=== PATIENT | male | born 1955 | race Caucasian/White ===

== ENCOUNTER 2020-12-04 00:21 | Inpatient (IN) | payer MEDICARE, OTHER, SELFPAY ==
[2020-12-04] VITALS (25 sets, daily range): BP systolic 117–156; BP diastolic 67–87; PULSE 78–124; RESP 18–24; TEMP 36.7–39.4; O2SAT 96–100; BMI 30.6
--- NOTE | ~2020-12-04 | XR_ITS ---
EXAMINATION: XR chest 1V portable EXAM DATE: 12/07/2020 09:23 INDICATION: Pneumonia. TECHNIQUE: Portable AP frontal chest x-ray was obtained. Comparison is made to prior examination from 12/04/2020. FINDINGS: Multifocal right upper lobe opacity appearance most consistent with bacterial pneumonia. Ot her infectious etiology or underlying cancer not excludable, and follow-up to resolution is indicated . Cardiomediastinal silhouette is normal. There is no pneumothorax suspected. There are no pleural effu sions. There are no osseous abnormalities identified. IMPRESSION: Multifocal right upper lobe pneumonia. Follow-up to resolution is indicated to exclude un derlying cancer. Reviewed, dictated and finalized at location B. IMPRESSION: Multifocal right upper lobe pneumonia. Follow-up to resolution is i ndicated to exclude underlying cancer.
--- NOTE | ~2020-12-04 | XR_ITS ---
EXAMINATION: XR chest PICC line DATE: 12/09/2020 09:21 INDICATION: PICC line placement TECHNIQUE: frontal view of the chest was obtained. COMPARISON: Chest radiograph dated 12/07/2020 FINDINGS: Right upper extremity peripherally inserted central venous catheter (PICC) tip at the mid superior v jaelyn cava. No significant interval change in consolidation in the right upper lobe concerning for pneu monia. Mild streaky opacities at the bilateral lung bases more likely related to atelectasis. Calcifi ed nodule left upper lung zone and calcified left hilar lymph nodes consistent with old granulomatous disease. The cardiomediastinal silhouette is normal. IMPRESSION: 1. Right PICC line tip in the midsuperior vena cava. 2. Right upper lobe pneumonia. Reviewed, dictated and finalized at location A.
--- NOTE | ~2020-12-04 | US_ITS ---
EXAMINATION: US abdomen limited DATE: 12/07/2020 14:52 INDICATION: Abnormal liver function tests. TECHNIQUE: Multiple grayscale and Doppler ultrasound images of the abdomen were obtained. COMPARISON: Chest CT 12/04/2020, CT abdomen and pelvis 05/06/2018 FINDINGS: The pancreas is obscured by bowel gas. The liver is normal without focal lesion. No liver s urface nodularity. There is normal flow in main portal vein. The gallbladder is contracted. There are comet tail artifacts at the gallbladder fundus, consistent with adenomyomatosis. No gallstones or so nographic Cano sign. The common duct is normal and measures 2 mm. IMPRESSION: 1. No etiology for abnormal liver function tests. Reviewed, dictated and finalized at location A.
--- NOTE | ~2020-12-04 | CT_ITS ---
EXAMINATION: CTA chest PE protocol DATE: 12/04/2020 02:08 INDICATION: Dyspnea TECHNIQUE: Computed tomography angiography (CTA) of the chest was performed with 100 mL Omnipaque-350 intravenous contrast timed to evaluate the pulmonary arteries. Coronal maximum intensity projection 3D-reconstructions were created by the technologist. Automated exposure control and iterative reconst ruction technique were employed. Exam dose: 939.17 mGy-cm total exam DLP. COMPARISON: 12/04/2020 portable AP chest FINDINGS: There is suboptimal contrast enhancement of the pulmonary arteries. No central pulmonary em bolus is identified; the segmental and subsegmental pulmonary artery cannot sufficiently opacified fo r diagnostic purposes. No thoracic aortic aneurysm or dissection. Normal heart size. Mild pericardial effusion. There is cor onary artery calcification. There is mild hilar and mediastinal lymph node prominence, likely reactive. There is very prominent consolidation in the right upper lobe, particularly in the apical and posteri or medial right upper lobe, with air bronchograms. There are scattered patchy groundglass infiltrates in the left upper lobe including lingula, middle lobe Included skeletal structures are unremarkable other than prominent degenerative disc disease in lower cervical spine and mild degenerative spurring of the thoracic spine.. IMPRESSION: Limited examination for evaluation of pulmonary emboli due to suboptimal contrast opacif ication. No central pulmonary embolus is noted. Multifocal bilateral pulmonary infiltrates, with particularly prominent consolidation in the right up per lobe Mild pericardial effusion Reviewed, dictated and finalized at Location A. Reviewed, dictated and finalized at location A. IMPRESSION: Limited examination for evaluation of pulmonary emboli due to subo ptimal contrast opacification. No central pulmonary embolus is noted. Multifocal bilateral pulmonary infiltrates, with particularly prominent consoli dation in the right upper lobe Mild pericardial effusion
--- NOTE | ~2020-12-04 | XR_ITS ---
EXAMINATION: XR chest 1V portable DATE: 12/04/2020 01:01 INDICATION: Shortness of breath TECHNIQUE: frontal view of the chest was obtained. COMPARISON: Chest CT dated 12/04/2020 FINDINGS: Dense consolidation in the right upper lobe consistent with pneumonia. Calcified nodule in the left u pper lung zone consistent with old granulomatous disease. No pleural effusion or pneumothorax. The ca rdiomediastinal silhouette is normal. IMPRESSION: 1. Right upper lobe consolidation consistent with pneumonia. Reviewed, dictated and finalized at location A.
--- NOTE | ~2020-12-04 | CT_ITS ---
EXAMINATION: CT brain wo con INDICATION: Confusion COMPARISON: None TECHNIQUE: Standard unenhanced head CT. The dose-length product (DLP) was 908.00 mGy-cm. The mA was a djusted according to patient size. Iterative reconstruction technique was employed. FINDINGS: There is no acute intraparenchymal hemorrhage. No evidence of mass lesion. No evidence of a cute infarction. There is mild periventricular and subcortical hypodensity probably related to small vessel ischemic disease. There is mild prominence of the sulci and ventricles related to cerebral atr ophy. Intracranial calcified cerebral atherosclerosis is noted. There are no extra-axial collections. There is no mass effect or midline shift. The orbits and soft tissues are unremarkable. There is mil d mucosal thickening of the paranasal sinuses. IMPRESSION: 1. No acute intracranial abnormality. 2. Age related findings. Reviewed, dictated and finalized at location A.
--- NOTE | 2020-12-04 00:33 | ECG_ITS ---
Measurements Intervals [place] Rate: 131 P: 109 AL: 164 QRS: 104 QRSD: 117 T: 139 QT: 288 QTc: 426 Interpretive Statements SINUS TACHYCARDIA FREQUENT ATRIAL PREMATURE COMPLEXES ARM LEADS REVERSED INCOMPLETE RIGHT BUNDLE BRANCH BLOCK BORDERLINE ST-T WAVE ABNORMALITY- ANTERIOR LEADS BASELINE ARTIFACT- II, V1-V2 ABNORMAL ECG Electronically Signed On 12-04-2020 8:27:39 CDT by Geraldo Brock D.O.
[2020-12-04 01:10] LABS: Alveolar/Arterial O2 Gradient 136.7 mmHg; Base Excess ABG -1.5 mEq/l (+/-2.0); Fractional Inspired Oxygen 36 %; HCO3 ABG 19.4 mEq/l (22.0-26.0); Oxygen Content ABG 20.4 %vol (16.0-22.0); Oxygen Saturation ABG 97.8 % (95.0-100.0); Oxyhemoglobin 96.3 % THb (90.0-100.0); PCO2 ABG 24.2 mmHg (35.0-45.0); PO2 ABG 91.9 mmHg (80.0-100.0); PO2 FiO2 Ratio Arterial Blood 2.55 %
[2020-12-04 01:13] LABS: Modified Allen's Test Pass; Site Drawn RIGHT RADIAL; pH ABG 7.522 (7.350-7.450)
[2020-12-04 01:14] LABS: Device NASAL CANNULA
[2020-12-04 01:17] LABS: Basophils Percent Auto 0.3 % (0.2-1.2); Hematocrit 39.4 % (42.0-52.0); Hemoglobin 14.4 g/dL (14.0-18.0); Immature Granulocyte Absolute 0.11 K/mm3 (0.00-0.031); Lymphocytes Absolute Auto 0.75 K/mm3 (0.9-3.2); Lymphocytes Percent Auto 7.1 % (18.3-44.2); Mean Corpuscular HGB Conc 36.5 g/dl (32-36); Mean Corpuscular Hemoglobin 31.9 pg (26-34); Mean Corpuscular Volume 87.4 fl (80-100); Mean Platelet Volume 10.5 fl (7.4-10.4); Monocytes Absolute Auto 0.5 K/mm3 (0.1-0.6); Monocytes Percent Auto 4.7 % (2.6-8.5); Neutrophils Absolute Auto 9.1 K/mm3 (1.3-6.7); Neutrophils Percent Auto 86.9 % (45.5-73.1); Platelet Count Result 249 k/mm3 (150-375); Red Blood Count 4.51 M/mm3 (4.6-6.20); Red Cell Distribution Width 13.4 % (11.5-14.5); White Blood Count 10.5 K/mm3 (4.5-10.0)
[2020-12-04 01:18] LABS: INR 1.2; Prothrombin Time 14.7 Seconds (11.1-14.7)
[2020-12-04 01:19] LABS: Lactic Acid Reflex 2.2 mmol/L (0.7-2.1)
[2020-12-04 01:20] LABS: Anion Gap 7 mmol/L (8-16); Blood Urea Nitrogen 30 mg/dL (9-20); Calcium 8.9 mg/dL (8.4-10.2); Carbon Dioxide 21 mmol/L (22-30); Chloride 90 mmol/L (98-107); Estimated CRCL calculation 70 ml/min; Estimated Glomerular Filt Rate > 60; Glucose 198 mg/dL (65-110); Potassium 4.4 mmol/L (3.4-5.0); Sodium 118 mmol/L (137-145)
[2020-12-04 01:28] LABS: EDCOVIDSCREEN Negative (Negative)
--- NOTE | 2020-12-04 01:32 | ED.SOB ---
HPI - SOB/Dyspnea General Chief Complaint: Shortness of Breath/Dyspnea Stated Complaint: cough/ fever/ sob Time Seen by Provider: 12/04/20 00:32 Source: RN notes reviewed History of Present Illness HPI Narrative: Patient presents to emergency department from home for shortness of breath. Patient states he began to feel bad approximately 4 days ago states that he has had progressive shortness of breath to he also states a fever at home states he has a cough this been nonproductive he states he had the [employer] vaccine on November [id number] patient denies any chest pain abdominal pain nausea vomiting or any other symptoms states he is on as needed oxygen at home but does not regularly wear oxygen Related Data Allergies Allergy/AdvReac Type Severity Reaction Status Date / Time No Known Allergies Allergy Unverified 05/06/18 07:09 Review of Systems Review of Systems: Gen.: Reports fever Eyes: Denies eye pain or visual change ENT: Denies congestion Respiratory: reports shortness of breath and CV: Denies chest pain or palpitations GI: Denies abdominal pain nausea, emesis or diarrhea Musculoskeletal: Denies back pain or muscle pain Neuro: Denies numbness, tingling, weakness or focal weakness Skin: Denies rash Except as documented, all other systems reviewed and negative [facility] Past Medical History Medical History (Updated 12/04/20 @ 03:54 by Eduardo Asher DO) COPD (chronic obstructive pulmonary disease) Family History Family History (Updated 05/30/12 @ 15:56 by DOCTOR UNKNOWN) Other Asthma Carcinoma of colon Diabetes mellitus Family history of coronary artery disease Family history of malignant neoplasm of stomach Family history of seizure disorder Hypertension Social History Social History Smoking status: Light tobacco smoker Alcohol intake: never Exam Narrative: APPEARANCE: No acute distress, nontoxic, resting in bed EYES: EOMI HEENT: Normocephalic, atraumatic, OMM RESPIRATORY: No respiratory distress Clear to auscultation bilaterally with no rhonchi wheezing or rales. CARDIOVASCULAR: Tachycardic and regular without murmurs rubs or gallops. ABDOMINAL: Soft, nontender, nondistended, no rebound or guarding MUSCULOSKELETAl: Moves all extremities. No clubbing, cyanosis or edema. NEURO: Awake and alert. Following commands, speech normal, no focal deficits SKIN:: Warm, dry. No rashes lesions or abrasions PSYCHIATRIC: Normal affect/mood, Course Course Emergency Course: Called and discussed with Dr. Nance presentation work-up agrees with admission at this time request a repeat BMP ordered for any further fluids be given Discussed with patient and family results of workup and diagnosis. Discussed need for admission. Patient and family understand and agree to current treatment plan Vital Signs Vital signs: Vital Signs Temperature 101 F H 12/04/20 00:21 Pulse Rate 120 H 12/04/20 00:21 Respiratory Rate 22 H 12/04/20 00:21 Blood Pressure 141/75 H 12/04/20 00:21 Pulse Oximetry 96 12/04/20 00:21 Temperature 101 F H 12/04/20 00:21 Pulse Rate 97 12/04/20 03:28 Respiratory Rate 24 H 12/04/20 03:28 Blood Pressure 130/68 12/04/20 03:28 Pulse Oximetry 97 12/04/20 03:28 MDM - SOB/Dyspnea Lab Data Result diagrams: 12/04/20 00:44 12/04/20 03:05 Labs: Lab Results 12/04/20 12/04/20 12/04/20 Range/Units 00:44 00:44 00:49 WBC 10.5 H (4.5-10.0) K/mm3 RBC 4.51 L (4.6-6.20) M/mm3 Hgb 14.4 (14.0-18.0) g/dL Hct 39.4 L (42.0-52.0) % MCV 87.4 (80-100) fl MCH 31.9 (26-34) pg MCHC 36.5 H (32-36) g/dl RDW 13.4 (11.5-14.5) % Plt Count 249 (150-375) k/mm3 MPV 10.5 H (7.4-10.4) fl Immature Gran % (Auto) 1.0 H (0-0.5) % Neut % (Auto) 86.9 H (45.5-73.1) % Lymph % (Auto) 7.1 L (18.3-44.2) % [place] % (Auto) 4.7 (2.6-8.5)
[2020-12-04 01:51] LABS: Alanine Aminotransferase 52 U/L (4-50); Albumin Level 3.2 g/dL (3.5-5.1); Alkaline Phosphatase 144 U/L (38-126); Aspartate Amino Transferase 103 U/L (17-59); Bilirubin,Total 0.6 mg/dL (0.2-1.3)
[2020-12-04 02:11] LABS: CRP 39.2 mg/dL (<1.0); Lactate Dehydrogenase 1924 U/L (313-618)
[2020-12-04] MEDS: SODIUM CHLORIDE 0.9% IV 1,000 ML 999 ML IV CONT (02:20)
[2020-12-04 03:22] LABS: Anion Gap 6 mmol/L (8-16); Blood Urea Nitrogen 29 mg/dL (9-20); Calcium 8.5 mg/dL (8.4-10.2); Carbon Dioxide 22 mmol/L (22-30); Chloride 92 mmol/L (98-107); Estimated CRCL calculation 65 ml/min; Estimated Glomerular Filt Rate > 60; Glucose 159 mg/dL (65-110); Potassium 3.8 mmol/L (3.4-5.0); Sodium 120 mmol/L (137-145)
[2020-12-04 04:07] LABS: Reflex Lactic Acid Yes or No Add Lactic
[2020-12-04 04:45] LABS: Lactic Acid 1.8 mmol/L (0.7-2.1)
--- NOTE | 2020-12-04 06:14 | PM.IMHP ---
H&P: HPI History of Present Illness Date/Time: 12/04/20 06:14 Chief Complaint: Shortness of breath Narrative: Patient presents to emergency department from home with complaints of feeling sick since a week now. He states he has been progressively getting short of breath since about a week along with fever. He also reports abdominal pain some loose stools decreased appetite and tiredness. He also reports having some cough which is dry. Reports fever at home. He also reports pain behind her eyes and headache since the same duration. He was noted to be tachycardic and febrile in the ER along with severely hyponatremic at 118 on admission. He was rapid swab for COVID which came back negative significantly elevated CRP at 39 with an LDH at 1924. A chest x-ray showed right upper lobe infiltrate CTA was done to rule out PE and was negative for PE but conforms the finding of multifocal pneumonia mostly located in right upper lobe however does have interstitial infiltrate in the left upper lobe and right lower lobe. He is admitted for further evaluation and management Review of Systems Review of Systems: - CONSTITUTIONAL: Reports weight loss, fever and chills. - HEENT: Denies changes in vision and hearing - RESPIRATORY: Reports SOB and cough. - CV: Denies palpitations and CP. - GI: Reports abdominal pain, nausea, and diarrhea. Denies vomiting - : Denies dysuria and urinary frequency. - MSK: Denies myalgia and joint pain. - SKIN: Denies rash and pruritus. - NEUROLOGICAL: Reports headache and denies syncope. - PSYCHIATRIC: Denies recent changes in mood. Denies anxiety and depression. All systems reviewed & are unremarkable except as noted in HPI and below Constitutional: Constitutional: Reports fatigue and Reports weakness Neurologic: Reports weakness Endocrine: Endocrine: Reports fatigue [facility] Past Medical History Medical History (Updated 12/04/20 @ 03:54 by Eduardo Asher DO) COPD (chronic obstructive pulmonary disease) Family History Family History (Updated 05/30/12 @ 15:56 by DOCTOR UNKNOWN) Other Asthma Carcinoma of colon Diabetes mellitus Family history of coronary artery disease Family history of malignant neoplasm of stomach Family history of seizure disorder Hypertension Social History Social History Smoking status: Light tobacco smoker Alcohol intake: never Meds Home Medications and Allergies Allergies Allergy/AdvReac Type Severity Reaction Status Date / Time No Known Allergies Allergy Unverified 05/06/18 07:09 Vital Signs Vital Signs - 24 hr 12/04/20 00:21 12/04/20 00:26 12/04/20 03:28 Temperature 101 F H Pulse Rate 120 H 97 Respiratory Rate 22 H 24 H Blood Pressure 141/75 H 130/68 Pulse Oximetry 96 96 97 12/04/20 05:32 Temperature Pulse Rate 78 Respiratory Rate 18 Blood Pressure 122/78 Pulse Oximetry 100 Exam Narrative: APPEARANCE: No acute distress, morbid obese EYES: EOMI HEENT: Normocephalic, atraumatic RESPIRATORY: Bilateral wheezes noted occasional no respiratory distress CARDIOVASCULAR: Regular rate and rhythm without murmurs rubs or gallops. ABDOMINAL: Soft, mildly tender epigastric area, distended, no rebound or guarding MUSCULOSKELETAl: Moves all extremities. No clubbing, cyanosis or edema. NEURO: Awake and alert oriented x3, speech normal, no focal deficits SKIN:: Warm, dry. No rashes lesions or abrasions PSYCHIATRIC: Normal affect/mood, H&P: Results Labs Labs: Short CBC 12/04/20 12/04/20 12/04/20 Range/Units 00:44 00:44 00:49 WBC 10.5 H (4.5-10.0) K/mm3 Hgb 14.4 (14.0-18.0) g/dL Hct 39.4 L (42.0-52.0) % Plt Count 249 (150-375) k/mm3 Sodium 118 L* (137-145) mmol/L Lactic Acid 2.2 H (0.7-2.1) mmol/L 12/04/20 Range/Units 03:05 WBC (4.5-10.0) K/mm3 Hgb (14.0-18.0) g/dL Hct (42.0-52.0) % Plt Count (
--- NOTE | 2020-12-04 08:17 | PC.NURSE ---
bed alarm remains in place. pt reminded about calling for assist. family updated via phone
[2020-12-04 08:22] LABS: Anion Gap 7 mmol/L (8-16); Blood Urea Nitrogen 26 mg/dL (9-20); Calcium 8.4 mg/dL (8.4-10.2); Carbon Dioxide 24 mmol/L (22-30); Chloride 88 mmol/L (98-107); Estimated CRCL calculation 70 ml/min; Estimated Glomerular Filt Rate > 60; Glucose 144 mg/dL (65-110); Potassium 3.8 mmol/L (3.4-5.0); Sodium 119 mmol/L (137-145)
[2020-12-04 09:02] LABS: Creatinine Urine 116.5 mg/dL; Urea Random Urine 1109 MG/DL
[2020-12-04] MEDS: methylPREDNISolone SOD SUCC 40 MG VIAL IV PUSH ×2 (09:17→16:49)
--- NOTE | 2020-12-04 09:32 | PC.NURSE ---
iv site infiltrated at this time. new site lt ac. previous site lt forearm d/c intact with drsg applied
--- NOTE | 2020-12-04 09:42 | ADMGEN ---
This patient, Quintin Thacker, was admitted to IMU Room 207-01. Patient/family oriented to hospital policies and general routines including ID bracelet, bed and alarms, visiting hours, pain management, procedures, bathroom and other care routines, personal items, smoking policy, room service/diet, and visiting hours. Information on how to activate the Rapid Response Team has been discussed. Patient/Family are encouraged to report perceived risks to care and to ask questions if they do not understand what they are told or what they should do.
[2020-12-04 09:47] LABS: Sodium Urine Random < 5 meq/L
[2020-12-04] MEDS: SODIUM CHLORIDE 0.9% IV 1,000 ML 80 ML IV CONT (11:13)
[2020-12-04] MEDS: ENOXAPARIN 40 MG/0.4 ML SYRINGE SUB-Q (11:14)
--- NOTE | 2020-12-04 13:12 | PM.IMPN ---
Progress Note: A&P Assessment and Plan (1) Severe sepsis: Code(s): A41.9 - Sepsis, unspecified organism; R65.20 - Severe sepsis without septic shock Status: Acute Assessment and Plan: Fevers, tachycardia, hypoxia, elevated lactic acid Lactic acidosis resolved with IV fluid resuscitation Elevated liver enzymes likely due to pneumonia and/or dehydration continue to monitor See plan below for acute respiratory failure with hypoxia Placed patient on IV azithromycin, IV Rocephin, IV Flagyl Patient continues to have fevers, last 1 103 this morning, given IV Tylenol. Added p.r.n. Motrin for breakthrough fevers urinalysis and urine cultures, blood cultures are pending. Other atypical cultures are already pending. no one at home has any pneumonia or illness or fevers or COVID.no known ill or sick contacts that he knew of. (2) Community acquired pneumonia: Code(s): J18.9 - Pneumonia, unspecified organism Status: Acute Assessment and Plan: See plan below for acute respiratory failure with hypoxia Placed patient on IV azithromycin, IV Rocephin, IV Flagyl Multifocal pneumonia predominantly right upper lobe community-acquired pneumonia. Rapid COVID is negative will send for COVID PCR. With hyponatremia and diarrhea suspect atypical pneumonia likely Legionnaire's disease. Will send urine screen along with pneumococcal antigen will also check for mycoplasma. Ceftriaxone and azithromycin and Flagyl ordered (3) Acute respiratory failure with hypoxia: Code(s): J96.01 - Acute respiratory failure with hypoxia Status: Acute Assessment and Plan: Community-acquired pneumonia verses Aspiration pneumonia versus COVID or viral pneumonia versus Atypical pneumonia such as legionnaires Quintin is having a very difficult time with his breathing, he is diaphoretic and in tripod position at this moment. stat albuterol and ipratropium nebulizer treatment. Added scheduled DuoNeb treatments. Ordered a urinalysis and urine cultures, blood cultures are pending. Other atypical cultures are already pending. consulted pulmonology. sees Sharlene Azar at [facility]. in [place], [place]. His home medications are not entered into his medical record at this time, I have instructed nursing to do so on contact me right away for reconciliation no one at home ill and no known ill or sick contacts that he knew of. CT angio scan was completed, but the report is not available his chest x-ray showed right upper lobe pneumonia. D-dimer is elevated at 14.5. Checking serial troponins x3, ordered an EKG for the morning, and ordered an echo to be done. 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 Severe hyponatremia sodium level of 118 on admission. Received normal saline bolus repeat was 120. Will continue normal saline at 80 cc an hour BMP every 4 hours n urine lytes osmolality still pending sodium of 119 he has been getting 80 mils an hour of sodium chloride since admission. has been on a heart healthy fluid restriction diet. I will change his heart healthy to regular diet, to make sure it is not low sodium. Repeating a stat CMP and CBC now, since his last labs were a midnight. Checking magnesium and phosphorus and TSH levels Appreciate inside solar sales consultant consultation and treatment (5) COPD (chronic obstructive pulmonary disease): Code(s): J44.9 - Chronic obstructive pulmonary disease, unspecified Status: Acute Assessment and Plan: Quintin is having a very difficult time with his breathing - COPD/Shilpa ACUTE on Chronic Exacerbation he is diaphoretic and in tripod position Ordered stat albuterol and ipratropium neb
[2020-12-04] MEDS: ALBUTEROL SULFATE NEB 2.5 MG/0.5 ML INH INHALATION ×3 (13:53→23:29)
[2020-12-04] MEDS: IPRATROPIUM BR 0.02% INH SOLN 0.5 MG/2.5 ML VIAL INHALATION ×3 (13:53→23:29)
[2020-12-04 14:03] LABS: Alveolar/Arterial O2 Gradient 164.5 mmHg; Base Excess ABG -1.1 mEq/l (+/-2.0); Fractional Inspired Oxygen 40 %; Oxygen Content ABG 21.1 %vol (16.0-22.0); Oxygen Saturation ABG 96.7 % (95.0-100.0); Oxyhemoglobin 95.4 % THb (90.0-100.0); PCO2 ABG 32.6 mmHg (35.0-45.0); PO2 ABG 83.2 mmHg (80.0-100.0); PO2 FiO2 Ratio Arterial Blood 2.08 %; Total Hemoglobin 15.7 g/dL (12.0-18.0); pH ABG 7.447 (7.350-7.450)
[2020-12-04 14:04] LABS: Device NASAL CANNULA; Modified Allen's Test Pass; Site Drawn RIGHT BRACHIAL
--- NOTE | 2020-12-04 14:05 | PM.CNNEP ---
Assessment and Plan Assessment and plan (1) Hyponatremia: Code(s): E87.1 - Hypo-osmolality and hyponatremia Status: Acute Assessment and Plan: acute versus chronic versus acute on chronic??? etiology/risk factors: - SSRI use (lexapro) - acute lung pathology (pneumonia) - chronic lung issues (COPD + asthma) - pre-renal factors (low urine sodium) - narcotics (percocet use) no real improvement with IV normal saline start fluid restriction trial of 3% saline given dropping sodium level goal of therapy is a rate of change of 4 - 6mmol/L (but not exceed 8mmol/L) in a 24 hours check TSH, cortisol, SPEP, UPEP, and urine/serum osmolality (2) Community acquired pneumonia: Code(s): J18.9 - Pneumonia, unspecified organism Status: Acute Assessment and Plan: as noted by imaging on admission follow up on cultures on antibiotics supplemental oxygen (3) Acute respiratory failure with hypoxia: Code(s): J96.01 - Acute respiratory failure with hypoxia Status: Acute Assessment and Plan: complicated by #2 and #4 continue current interventions follow respiratory status (4) COPD (chronic obstructive pulmonary disease): Code(s): J44.9 - Chronic obstructive pulmonary disease, unspecified Status: Acute Assessment and Plan: known diagnosis continue nebulizer treatments and steroids continus supportive therapy Will continue to follow. History of Present Illness Reason for Consult Consult date: 12/04/20 Reason for consult: hyponatremia Chief Complaint Chief complaint: Acute Resp Fail c hypoxia, community-aq pneumonia History of Present Illness Narrative: The patient is a 65 y/ male with a past medical history as outlined below who presented to [facility] ER with complaints of feeling sick. He states his symptoms began about a week ago which included shortness of breath that has progressively gotten worse in association with a fever, abdominal pain, loose stools, poor appetite, and profound fatigue. He also reports a dry cough and pain that seems to be localized behind his eyes in association with the headache. As the symptoms continued to progress without any improvement despite conservative therapy at home, he presented to the ER for further evaluation. Workup and evaluation emergency room demonstrated the patient to be hemodynamically stable but he was tachycardic and febrile. Routine blood test demonstrated significant hyponatremia with a sodium level 118. His rapid swab for COVID-19 was negative but his chest x-ray showed a right upper lobe infiltrate. He subsequent underwent a CT scan of the chest to rule out a pulmonary embolism which was negative but did confirm the finding of a multifocal pneumonia mostly localized to the right upper lobe with interstitial infiltrate in the left upper lobe as well as right lower lobe. Appropriate cultures were obtained and he was started on broad-spectrum IV antibiotic therapy with subsequent admission to the hospital for further evaluation and therapy. Renal consultation was requested due to his hyponatremia. I am unclear if his hyponatremia is acute, chronic, or acute on chronic but he reports that he has never had any issues or problems with hyponatremia to his knowledge. Labs done approximately 2 years ago in January 2019 show his sodium level be well within normal limits but I do not have any blood tests in the intervening couple of years to ascertain where his sodium level normally runs. He does have significant risk factors for hyponatremia including known COPD/asthma, his recent diagnosis of pneumonia, narcotic use, and SSRI use. Since admission, he has been receiving IV normal saline on the assumption that volume depletion/ prerenal factors more playing a role with his low sodium level particularly in the context of in
[2020-12-04 14:17] LABS: Basophils Percent Auto 0.3 % (0.2-1.2); Hematocrit 36.5 % (42.0-52.0); Hemoglobin 13.3 g/dL (14.0-18.0); Immature Granulocyte Absolute 0.12 K/mm3 (0.00-0.031); Immature Granulocyte Percent A 1.1 % (0-0.5); Lymphocytes Absolute Auto 0.55 K/mm3 (0.9-3.2); Mean Corpuscular HGB Conc 36.4 g/dl (32-36); Mean Corpuscular Hemoglobin 31.5 pg (26-34); Mean Corpuscular Volume 86.5 fl (80-100); Mean Platelet Volume 9.8 fl (7.4-10.4); Monocytes Absolute Auto 0.4 K/mm3 (0.1-0.6); Monocytes Percent Auto 3.7 % (2.6-8.5); Neutrophils Absolute Auto 9.8 K/mm3 (1.3-6.7); Neutrophils Percent Auto 89.9 % (45.5-73.1); Platelet Count Result 233 k/mm3 (150-375); Red Blood Count 4.22 M/mm3 (4.6-6.20); Red Cell Distribution Width 13.3 % (11.5-14.5)
--- NOTE | 2020-12-04 14:17 | ECG_ITS ---
Measurements Intervals [place] Rate: 87 P: 60 [place]: 174 QRS: 86 QRSD: 125 T: 48 QT: 349 QTc: 421 Interpretive Statements SINUS RHYTHM RIGHT BUNDLE BRANCH BLOCK BASELINE WANDER- V1-V3 ABNORMAL ECG Electronically Signed On 12-04-2020 20:01:04 CDT by Geraldo Brock D.O.
[2020-12-04 14:27] LABS: Magnesium 2.1 mg/dL (1.6-2.3); Phosphorus 2.9 mg/dL (2.5-4.5)
[2020-12-04] MEDS: guaiFENesin 12 HR 600 MG TABCR 1200 MG PO ×2 (14:31→20:54)
[2020-12-04] MEDS: LORATADINE 10 MG TABLET PO (14:31)
[2020-12-04] MEDS: FLUTICASONE PROPIONATE 0.05% NA SPR 16 GM BTL (*BKC) 1 SPRAY NASAL ×2 (14:32→20:54)
[2020-12-04] MEDS: metroNIDAZOLE 500 MG/ISO 100ML 500 MG/100 ML BAG 100 MG IVPB ×2 (14:35→21:58)
[2020-12-04 14:36] LABS: NT Pro B Type Natriuretic Pept 107 pg/mL (5-100)
[2020-12-04 14:38] LABS: Troponin I 0.022 ng/mL (0.000-0.034)
[2020-12-04 14:39] LABS: Alanine Aminotransferase 56 U/L (4-50); Albumin Level 3.2 g/dL (3.5-5.1); Alkaline Phosphatase 135 U/L (38-126); Anion Gap 6 mmol/L (8-16); Aspartate Amino Transferase 110 U/L (17-59); Bilirubin,Total 0.6 mg/dL (0.2-1.3); Blood Urea Nitrogen 23 mg/dL (9-20); Calcium 8.5 mg/dL (8.4-10.2); Carbon Dioxide 21 mmol/L (22-30); Chloride 90 mmol/L (98-107); Estimated CRCL calculation 77 ml/min; Estimated Glomerular Filt Rate > 60; Glucose 200 mg/dL (65-110); Sodium 117 mmol/L (137-145)
[2020-12-04 15:18] LABS: Thyroid Stimulating Hormone Reflex 0.251 uIU/mL (0.465-4.68)
[2020-12-04 16:02] LABS: Add Urine Microscopic? YES; Appearance Urine Clear (Clear); Bacteria Urine Trace /hpf; Bilirubin Urine Negative (Negative); Blood Urine 3+ (Negative); Color Urine Yellow (Yellow); Glucose Urine UA Negative (Negative); Ketones Urine Negative (Negative); Leukocyte Esterase Ur Negative LEU/UL (NEGATIVE); Nitrate Urine Negative (Negative); Protein Urine 2+ mg/dL (Negative); Specific Grav Ur 1.019 (1.001-1.035); Squamous Epithelial Cell Urine Rare /hpf (Few); Urobilinogen Urine Negative mg/dL (<2.0); WBC Urine 0-3 /hpf (0-3)
[2020-12-04] MEDS: SODIUM CHLORIDE 3% 240 ML 80 ML IV CONT (16:45)
[2020-12-04 17:31] LABS: Ferritin > 2000.00 ng/mL (11.1-264)
[2020-12-04 17:38] LABS: Anion Gap 7 mmol/L (8-16); Blood Urea Nitrogen 21 mg/dL (9-20); Calcium 8.4 mg/dL (8.4-10.2); Carbon Dioxide 21 mmol/L (22-30); Chloride 96 mmol/L (98-107); Estimated CRCL calculation 77 ml/min; Estimated Glomerular Filt Rate > 60; Glucose 151 mg/dL (65-110); Potassium 4.4 mmol/L (3.4-5.0); Sodium 124 mmol/L (137-145)
--- NOTE | 2020-12-04 18:01 | PCRCNOTE ---
Window of time for administration has passed. See next scheduled administration.
[2020-12-04] MEDS: FAMOTIDINE 20 MG TABLET 40 MG PO (18:15)
--- NOTE | 2020-12-04 20:32 | ECG_ITS ---
Measurements Intervals [place] Rate: 112 P: [place]: 0 QRS: 88 QRSD: 122 T: 28 QT: 323 QTc: 441 Interpretive Statements ATRIAL FIBRILLATION WITH RAPID VENTRICULAR RESPONSE RIGHT BUNDLE BRANCH BLOCK BASELINE ARTIFACT- I, II, III, AVR, AVL, AVF ABNORMAL ECG Electronically Signed On 12-05-2020 6:00:44 CDT by Geraldo Brock D.O.
[2020-12-04 21:14] LABS: Anion Gap 5 mmol/L (8-16); Blood Urea Nitrogen 21 mg/dL (9-20); Calcium 8.2 mg/dL (8.4-10.2); Carbon Dioxide 23 mmol/L (22-30); Chloride 97 mmol/L (98-107); Estimated CRCL calculation 95 ml/min; Estimated Glomerular Filt Rate > 60; Glucose 174 mg/dL (65-110); Potassium 4.3 mmol/L (3.4-5.0); Sodium 125 mmol/L (137-145)
[2020-12-04 21:40] LABS: Free T4 Free Thyroxine Reflex 0.99 ng/dL (0.78-2.19)
[2020-12-04 21:44] LABS: Anion Gap 5 mmol/L (8-16); Blood Urea Nitrogen 21 mg/dL (9-20); Carbon Dioxide 21 mmol/L (22-30); Chloride 98 mmol/L (98-107); Estimated CRCL calculation 95 ml/min; Estimated Glomerular Filt Rate > 60; Glucose 209 mg/dL (65-110); Potassium 4.4 mmol/L (3.4-5.0); Sodium 124 mmol/L (137-145)
[2020-12-04 21:56] LABS: Troponin I < 0.012 ng/mL (0.000-0.034)
[2020-12-04 22:41] LABS: Total Triiodothyronine (T3) 0.68 NG/ML (0.97-1.69)
[2020-12-05] VITALS (17 sets, daily range): BP systolic 114–138; BP diastolic 64–96; PULSE 90–147; RESP 16–24; TEMP 36.2–37.6; O2SAT 93–99
--- NOTE | 2020-12-05 | ECHO_ITS ---
Patient Info Name: Quintin Thacker Age: 65 years : 1955 Gender: Male Ht: 70 in Wt: 213 lbs BSA: 2.21 m2 HR: 110 bpm BP: 129 / 75 mmHg Heart Rhythm: Atrial Fibrillation Technical Quality: Good Exam Date: 12/05/2020 9:18 AM Exam Location: [facility] Patient Status: Inpatient Admit Date: 12/04/2020 Staff Ordering Physician: Pauline Abraham NP Vending Machine Mechanic: Shanell Hernandez RDCS Attending Provider: Johnnie Ko MD Referring Physician: Jarad HOUSE; Exam Type: CA echo doppler color flow Study Info Indications R07.89 - Other chest pain R06.02 - Shortness of breath J96.01 - Acute respiratory failure with hypoxia Complete two-dimensional, color flow and Doppler transthoracic echocardiogram is performed. Summary 1. Complete two-dimensional, color flow and Doppler transthoracic echocardiogram is performed. 2. Left ventricular chamber dimension is normal. 3. Left ventricular systolic function is hyperdynamic, estimated at >70%. 4. There is no increased left ventricular wall thickness. 5. There is no aortic valve stenosis. 6. There is trace mitral valve regurgitation. 7. There is trace tricuspid valve regurgitation. 8. No pulmonary hypertension, estimated pulmonary arterial systolic pressure is 23 mmHg. 9. There is a small to moderate sized pericardial effusion with fibrinous material within pericardial space. 10. Normal inferior vena cava with >50% collapse upon inspiration consistent with normal right atrial pressure, 5 mmHg. Left Ventricle Left ventricular chamber dimension is normal. Left ventricular systolic function is hyperdynamic, estimated at >70%. There is no increased left ventricular wall thickness. The left ventricular diastolic function is indeterminate. Right Ventricle Right ventricular chamber dimension is normal. Right ventricular systolic function is normal. Left Atria Left atrial chamber dimension is normal. Right Atria Right atrial chamber dimension is normal. Aortic Valve The aortic valve is probable trileaflet. There is mild aortic valve sclerosis. There is no aortic valve stenosis. There is trace aortic valve regurgitation. Pulmonic Valve The pulmonic valve is not well visualized. Mitral Valve The mitral valve has normal leaflets. There is trace mitral valve regurgitation. The mitral valve annulus is mildly calcified. Tricuspid Valve The tricuspid valve leaflets are normal. There is trace tricuspid valve regurgitation. No pulmonary hypertension, estimated pulmonary arterial systolic pressure is 23 mmHg. Pericardium/Pleural The pericardium appears normal. There is a small to moderate sized pericardial effusion with fibrinous material within pericardial space. Inferior Vena Cava Normal inferior vena cava with >50% collapse upon inspiration consistent with normal right atrial pressure, 5 mmHg. Aorta The aortic root size at the sinus of Valsalva is normal. Left Ventricular Outflow Tract Name Value Normal LVOT 2D LVOT Diameter 2.0 cm LVOT Doppler LVOT Peak Gradient 6 mmHg LVOT Mean Gradient
[2020-12-05 01:05] LABS: Anion Gap 6 mmol/L (8-16); Blood Urea Nitrogen 21 mg/dL (9-20); Calcium 8.5 mg/dL (8.4-10.2); Carbon Dioxide 23 mmol/L (22-30); Chloride 94 mmol/L (98-107); Estimated CRCL calculation 95 ml/min; Estimated Glomerular Filt Rate > 60; Glucose 163 mg/dL (65-110); Potassium 4.2 mmol/L (3.4-5.0); Sodium 123 mmol/L (137-145)
[2020-12-05] MEDS: ALBUTEROL SULFATE NEB 2.5 MG/0.5 ML INH INHALATION ×2 (04:09→09:00)
[2020-12-05] MEDS: IPRATROPIUM BR 0.02% INH SOLN 0.5 MG/2.5 ML VIAL INHALATION ×4 (04:09→20:35)
[2020-12-05] MEDS: metroNIDAZOLE 500 MG/ISO 100ML 500 MG/100 ML BAG 100 MG IVPB (05:34)
[2020-12-05 07:09] LABS: Basophils Percent Auto 0.2 % (0.2-1.2); Hematocrit 36.6 % (42.0-52.0); Immature Granulocyte Percent A 0.8 % (0-0.5); Lymphocytes Absolute Auto 0.77 K/mm3 (0.9-3.2); Lymphocytes Percent Auto 6.2 % (18.3-44.2); Mean Corpuscular HGB Conc 35.5 g/dl (32-36); Mean Corpuscular Hemoglobin 31.6 pg (26-34); Mean Corpuscular Volume 88.8 fl (80-100); Mean Platelet Volume 10.2 fl (7.4-10.4); Monocytes Absolute Auto 0.7 K/mm3 (0.1-0.6); Monocytes Percent Auto 5.6 % (2.6-8.5); Neutrophils Absolute Auto 10.8 K/mm3 (1.3-6.7); Neutrophils Percent Auto 87.2 % (45.5-73.1); Platelet Count Result 281 k/mm3 (150-375); Red Blood Count 4.12 M/mm3 (4.6-6.20); Red Cell Distribution Width 13.9 % (11.5-14.5); White Blood Count 12.4 K/mm3 (4.5-10.0)
[2020-12-05 07:34] LABS: Troponin I < 0.012 ng/mL (0.000-0.034)
--- NOTE | 2020-12-05 08:07 | PCRCNOTE ---
Ordered nebulizer tx (Q4) delayed due to OT with pt as well as pt breakfast just delivered.
[2020-12-05] MEDS: FLUTICASONE PROPIONATE 0.05% NA SPR 16 GM BTL (*BKC) 1 SPRAY NASAL ×2 (09:05→21:21)
[2020-12-05] MEDS: ENOXAPARIN 40 MG/0.4 ML SYRINGE SUB-Q (09:05)
[2020-12-05] MEDS: methylPREDNISolone SOD SUCC 40 MG VIAL IV PUSH (09:05)
[2020-12-05] MEDS: MONTELUKAST SODIUM 10 MG TABLET PO (09:05)
[2020-12-05] MEDS: guaiFENesin 12 HR 600 MG TABCR 1200 MG PO ×2 (09:05→21:21)
[2020-12-05] MEDS: LORATADINE 10 MG TABLET PO (09:06)
--- NOTE | 2020-12-05 09:20 | PM.CNPUL ---
Assessment and Plan Assessment and plan (1) Community acquired pneumonia: Code(s): J18.9 - Pneumonia, unspecified organism Status: Acute Assessment and Plan: Patient presents with 1 week history of fever, dry cough, shortness of breath and weakness. he is also hyponatremic. Patient has a dense right upper lobe infiltrate and left upper lobe and lingula mild infiltrates. COVID rapid test negative. CTA without PE. BNP 107. Patient feels somewhat better on ceftriaxone and azithromycin. Blood cultures are negative. Agree with this antibiotic regimen for CAP. patient was also started on IV Flagyl for pneumonia and I will discontinue this at this time. Urine Legionella antigen, urine pneumococcal antigen and mycoplasma IgG and IgM are pending. Will follow with you (2) Asthma-COPD overlap syndrome: Code(s): J44.9 - Chronic obstructive pulmonary disease, unspecified Status: Acute Assessment and Plan: Patient tells me he is asthma since childhood and has been on inhalers all his life. He also tells me he has COPD but has minimal tobacco use and no paraseptal or centrilobular emphysema on a CT scan of the chest. He is followed at [facility] in his recently had a workup at [facility] a month ago in which they did multiple tests. I do not have any of these records currently. He is on 3 L at night and none during the day. He is maintained on Symbicort, Spiriva, theophylline, and albuterol 10 mg p.o. q.12 hours as well as aggressive treatment for allergies and sinus disease with fluticasone nasal spray and montelukast 10 mg p.o. q.day. Today patient has no wheezes on exam and I will change him to prednisone 30 mg p.o. q.day which he tells me is his home dose. I will continue ipratropium nebulizer 0.5 mg Q 6 hours, I will change his albuterol nebulizers to leave albuterol as he has AFib with RVR at a dose of 1.25 mg Q 6 hours. I will continue his montelukast 10 mg p.o. q.day, fluticasone nasal spray and Claritin 10 mg q.day for his allergies and sinus congestion. Patient states he wears 3 L nasal cannula at night and none during the day. Currently his saturations are 94% on room air and I will order 3 L nasal cannula when he sleeps. History of Present Illness History of Present Illness Consult date: 12/05/20 Reason for consult: pneumonia Chief complaint: Acute Resp Fail c hypoxia, community-aq pneumonia Narrative: This is a new Pulmonary consult for atypical pneumonia and COPD This is a 65-year-old man with a history of asthma since childhood and COPD who presented with 1 week worsening shortness of breath, weakness on 12/04/2020. Patient states that he has had a fever, headache, dry cough with no purulence sputum or hemoptysis worsening shortness of breath and weakness over the last week. Patient was admitted to the hospital with a white blood cell count of 10.5, a D-dimer of 14.5 and a 4 L blood gas that demonstrated a pH of 7.5 06/01/1991. Patient had a CT angiogram of the chest that showed no pulmonary embolism, right upper lobe dense consolidation and left upper lobe and lingula mild infiltrates. rapid COVID study in the ER was negative. Patient was hyponatremic with a sodium of 118. Patient was admitted to the hospital and treated for community-acquired pneumonia with ceftriaxone and azithromycin And was started on Solu-Medrol, albuterol and ipratropium nebulizers for possible COPD exacerbation. Of note patient is also on Claritin, montelukast and Flonase for sinus congestion and allergies. Patient is followed by the pulmonary team at [facility] and has recently been referred to [facility]. The patient states that he saw the physicians at [facility] approximately 1 month ago and they did a number of tests but did not change any of his medicines and did not tell him what they thought the problem was. Patient states that he has been on albuterol, symbicor
[2020-12-05 09:30] LABS: Alanine Aminotransferase 56 U/L (4-50); Albumin Level 3.2 g/dL (3.5-5.1); Alkaline Phosphatase 125 U/L (38-126); Anion Gap 9 mmol/L (8-16); Aspartate Amino Transferase 91 U/L (17-59); Bilirubin,Total 0.6 mg/dL (0.2-1.3); Blood Urea Nitrogen 24 mg/dL (9-20); Calcium 8.3 mg/dL (8.4-10.2); Carbon Dioxide 20 mmol/L (22-30); Chloride 97 mmol/L (98-107); Estimated CRCL calculation 95 ml/min; Estimated Glomerular Filt Rate > 60; Glucose 142 mg/dL (65-110); Lactate Dehydrogenase 1630 U/L (313-618); Potassium 4.6 mmol/L (3.4-5.0); Sodium 126 mmol/L (137-145)
[2020-12-05 09:59] LABS: Thyroid Stimulating Hormone Reflex 0.137 uIU/mL (0.465-4.68)
--- NOTE | 2020-12-05 11:09 | PM.PNNEP ---
Progress Note: A&P Assessment and Plan (1) Hyponatremia: Code(s): E87.1 - Hypo-osmolality and hyponatremia Status: Acute Assessment and Plan: acute versus chronic versus acute on chronic??? etiology/risk factors: - excessive free water intake - SSRI use (lexapro) - acute lung pathology (pneumonia) - chronic lung issues (COPD + asthma) - pre-renal factors (low urine sodium) - narcotics (percocet use) no real improvement with IV normal saline started on fluid restriction s/p of 3% saline x 1 yesterday goal of therapy is a rate of change of 4 - 6mmol/L (but not exceed 8mmol/L) in a 24 hours - this is being maintained so far cortisol okay but TSH low -- waiting for T4 SPEP, UPEP, and urine/serum osmolality pending (2) Community acquired pneumonia: Code(s): J18.9 - Pneumonia, unspecified organism Status: Acute Assessment and Plan: as noted by imaging on admission follow up on cultures on antibiotics supplemental oxygen (3) Acute respiratory failure with hypoxia: Code(s): J96.01 - Acute respiratory failure with hypoxia Status: Acute Assessment and Plan: complicated by #2 and #4 continue current interventions Pulmonary consulted with recommendations noted follow respiratory status (4) COPD (chronic obstructive pulmonary disease): Code(s): J44.9 - Chronic obstructive pulmonary disease, unspecified Status: Acute Assessment and Plan: known diagnosis continue nebulizer treatments and steroids Pulmonary following continus supportive therapy Will continue to follow. Subjective Date/time seen: 12/05/20 11:09 Respiratory status continues to improve with current therapy/interventions; major complaint is with regard to fluid restriction (arguing the he drinks a lot water at baseline); sitting up in chair at the time of my visit; no apparent distress voiced; no events overnight or earlier this AM. Exam Narrative: General: WD/WN male in NAD Heart: normal S1 and S2; no rub Lungs: coarse breath sounds Abdomen: soft, nontender, nondistended, positive bowel sounds Extremities: no cyanosis or clubbing; no edema Skin: warm and dry Objective Data Vital Signs Vital Signs: Vital Signs Temp Pulse Resp BP Pulse Ox 12/05/20 09:06 109 H 22 H 95 12/05/20 09:00 109 H 24 H 95 12/05/20 08:00 36.2 C L 105 H 24 H 117/74 95 12/05/20 06:26 101 H 12/05/20 04:47 147 H 12/05/20 04:16 111 H 20 12/05/20 04:09 115 H 22 H 12/05/20 04:00 37.6 C H 103 H 24 H 129/75 97 12/05/20 02:00 106 H 12/05/20 00:00 36.4 C 93 22 H 118/78 95 12/04/20 23:39 95 22 H 12/04/20 23:30 94 22 H 12/04/20 23:02 96 12/04/20 20:53 104 H 117/67 12/04/20 20:00 36.7 C 114 H 20 117/67 99 12/04/20 19:39 98 20 12/04/20 19:31 106 H 20 98 12/04/20 16:00 36.7 C 87 22 H 125/75 99 12/04/20 14:11 89 20 12/04/20 14:00 88 12/04/20 13:55 91 22 H 12/04/20 13:53 97 12/04/20 13:22 97 Intake/Output Intake/Output: Intake & Output 12/02/20 12/03/20 12/04/20 12/05/20 23:59 23:59 23:59 23:59 Intake Total 3580 240 Output Total 1275 900 Balance 2305 -660 Meds/Results Medications: Active Medications Generic Name Dose Route Start Last Admin Trade Name Freq PRN Reason Stop Dose Admin Hydrocodone Bitart/Acetaminophen 1 tab 12/04/20 13:23 Hydrocodone/Acetaminophen (*Crx) 5-325 Mg Tablet PO Q6H PRN Pain Rated 6 or Greater Enoxaparin Sodium 40 mg 12/04/20 09:00 12/05/20 09:05 Enoxaparin 40 Mg/0.4 Ml Syringe SUB-Q 40 mg DAILY ORQUIDEA Administration Famotidine 40 mg 12/04/20 18:00 12/04/20 18:15 Famotidine 20 Mg Tablet PO 40 mg QPM ORQUIDEA Administration Fluticasone Propionate 1 spray 12/04/20 13:20 12/05/20 0
[2020-12-05 11:46] LABS: Ferritin > 2000.00 ng/mL (11.1-264)
[2020-12-05] MEDS: predniSONE 20 MG, predniSONE 10 MG 30 MG PO (11:58)
[2020-12-05 12:21] LABS: CRP 41.7 mg/dL (<1.0)
[2020-12-05 12:28] LABS: Sodium 125 mmol/L (137-145)
[2020-12-05 12:31] LABS: Free T4 Free Thyroxine Reflex 0.95 ng/dL (0.78-2.19)
--- NOTE | 2020-12-05 13:29 | PM.IMPN ---
Progress Note: A&P Assessment and Plan (1) Severe sepsis: Code(s): A41.9 - Sepsis, unspecified organism; R65.20 - Severe sepsis without septic shock Status: Acute Assessment and Plan: Fevers, tachycardia, hypoxia, elevated lactic acid Lactic acidosis resolved with IV fluid resuscitation Continue IV azithromycin and Rocephin Urinalysis and urine cultures Blood cultures showing 1/2 with GPCs. Will add Vancomycin and repeat cultures. Other atypical cultures are already pending. (2) Community acquired pneumonia: Code(s): J18.9 - Pneumonia, unspecified organism Status: Acute Assessment and Plan: Continue IV azithromycin and Rocephin (12/04- Multifocal pneumonia predominantly right upper lobe community-acquired pneumonia. Rapid COVID is negative COVID PCR pending With hyponatremia and diarrhea suspect atypical pneumonia likely Legionnaire's disease. Urine screen pneumococcal antigen and legionella and mycoplasma. (3) Acute respiratory failure with hypoxia: Code(s): J96.01 - Acute respiratory failure with hypoxia Status: Acute Assessment and Plan: Community-acquired pneumonia verses Aspiration pneumonia versus COVID or viral pneumonia versus Atypical pneumonia such as legionnaires Albuterol and ipratropium nebulizer treatment. Scheduled DuoNeb treatments. CT angio scan 12/04: Multifocal bilateral pulmonary infiltrates, with particularly prominent consolidation in the right upper lobe D-dimer is elevated at 14.5. Negative troponin x3, ordered an echo to be done. Appreciate handy worker consultation and treatment (4) Acute hyponatremia: Code(s): E87.1 - Hypo-osmolality and hyponatremia Status: Acute Assessment and Plan: Significantly hyponatremic likely due to his attempt to hydrate himself well not really eating, and this could also explain his weakness. Also lung pathology and being on Lexapro. Severe hyponatremia sodium level of 118 on admission. Received normal saline and hypertonic saline x 1: 12/04. Started on fluid restriction. Appreciate strategic business development consultation and treatment (5) COPD (chronic obstructive pulmonary disease): Code(s): J44.9 - Chronic obstructive pulmonary disease, unspecified Status: Acute Assessment and Plan: Duonebs Receiving 40 mg of IV Solu-Medrol along with bronchodilators, transitioned back to 30 mg prednisone which is his home dose consulted pulmonology. He sees Global Product Manager Sharlene Azar at [facility]. in [place], [place]. Additional Plan Nicotine dependance: Counseled on smoking cessation DVT porph: Enoxaparin Code status: full code Subjective Date/time seen: 12/05/20 13:29 He reports he is feeling much better and no N/V. Breathing comfortably currently. Hemodynamically stable. Afebrile. He did receive hypertonic saline x1 yesterday. Review of Systems Review of Systems: All systems reviewed & are unremarkable except as noted in HPI and below Exam Narrative: Gen: Alert, NAD Abd: Soft, NT, ND Heart: RRR Lungs: CTAB Ext: No lower extremity edema Objective Data Vital Signs Vital Signs: Vital Signs - 24 hr 12/04/20 13:53 12/04/20 13:55 12/04/20 14:00 Temperature Pulse Rate 91 88 Respiratory Rate 22 H Blood Pressure Pulse Oximetry 97 12/04/20 14:11 12/04/20 16:00 12/04/20 19:31 Temperature 98.1 F Pulse Rate 89 87 106 H Respiratory Rate 20 22 H 20 Blood Pressure 125/75 Pulse Oximetry 99 98 12/04/20 19:39 12/04/20 20:00 12/04/20 20:53 Temperature 98.1 F Pulse Rate 98 114 H 104 H Respiratory Rate 20 20 Blood Pressure 117/67 117/67 Pulse Oximetry 99 12/04/20 23:02 12/04/20 23:30 12/04/20 23:39 Temperature Pulse Rate 96 94 95 Respiratory Rate 22 H 22 H Blood Pressure Pulse Oximetry 12/05/20 00:00 12/05/20 02:00 12/05/20 04:00 Temperature 97.6 F 99.7 F H Pulse Rate 93 106 H 103 H Respirat
[2020-12-05 14:39] LABS: Estimated CRCL calculation 95 ml/min; Estimated Glomerular Filt Rate > 60
[2020-12-05] MEDS: FAMOTIDINE 20 MG TABLET 40 MG PO (16:52)
[2020-12-05 18:25] LABS: Sodium 124 mmol/L (137-145)
[2020-12-05] MEDS: HALOPERIDOL LACTATE 5 MG/ML VIAL IV PUSH (20:54)
[2020-12-05 23:32] LABS: SARS-CoV-2 RNA PCR Negative
[2020-12-06] VITALS (17 sets, daily range): BP systolic 106–146; BP diastolic 57–80; PULSE 0–130; RESP 16–24; TEMP 35.8–37.1; O2SAT 95–98
[2020-12-06] MEDS: HALOPERIDOL LACTATE 5 MG/ML VIAL IM (01:37)
--- NOTE | 2020-12-06 01:44 | PC.NURSE ---
PATIENT IS HAVING INCREASED CONFUSION. PATIENT IS EXTREMELY UNBALANCED ON FEET AND WILL NOT STAY IN BED. PATIENT WILL NOT CALL OUT FOR ASSISTANCE. PATIENT CLIMBS OVER BED RAILS TO GET UP. PATIENT ARGUES THAT HE IS FINE AND CAN WALK WITHOUT HELP. PATIENT HAS PULLED OUT 5 IV'S. PATIENT HAD NEW IV'S PLACED SO THAT HE CAN GET HIS CARDIZEM GTT AND ANTIBIOTICS. PATIENT PULLED OUT NEW IV'S. PATIENT REFUSED NEW IV'S. PATIENT WAS GIVEN HALDOL BECAUSE OF INCREASING AGITATION. PATIENT STILL WOULD NOT LET US PLACE IV AND STARTED TO BECOME EXTREMELY VIOLENT. PATIENT WAS REFUSING TO STAY IN BED AND WAS DEMANDING TO LEAVE. PATIENT IS ALERT AND ORIENTED X1 MAYBE [address] BARTLETT IS AWARE AND HAS SPOKE TO PATIENT . ORDERED CT OF HEAD AND PATIENT REFUSED TO GO DOWN. DR BARTLETT ORDERED HALDOL FOR PATIENT AND HE BENT THE NEEDLE IN HIS ARM AND NO MEDICATION WAS GIVEN TO PATIENT AND HE WOULD NOT LET US GIVE HIM ANY. A CODE PURPLE WAS CALLED AT 2249 AND AGAIN AT 2316. PATIENT HAS REMOVED HIS TELEMETRY AND IS REFUSING TO PLACE IT BACK ON. PATIENT IS CALLING STAFF A BITCH AND CALLING US ALL LIARS. PATIENT CONTINUES TO CLIMB OUT OF BED. HE WAS TRYING TO SHAVE WITH THE SUCTION CANISTER. HE WAS PLAYING WITH THE IV PUMP SAYING THAT HE HAS SEVERAL DEGREES IN ENGENEERING. PATIENT WAS GIVEN ANOTHER HALDOL SHOT AND WAS VIOLENTLY KICKING AND SCREAMING AT STAFF. HE IS VERY STRONG AND WAS GRABBING AT STAFF. PATIENT HAS SAID THAT HE HAS TALKED TO 2 OF HER FAMILY MEMBER AND THAT THEY WERE ON THE WAY TO PICK HIM UP, HE WAS TALKING TO THEM THROUGH THE SLAB OFF MILL TENDER. HE THINKS IT IS A PHONE. HE WAS AT THE DOOR TO THE ROOM AND HE WAS TRYING TO ELOPE. HE WAS TRYING TO PUSH HIS WAY OUT THE DOOR AND THEN STOPPED. DR BARTLETT IS AWARE THE PATIENT HAS NO IV, WILL NOT KEEP HIS TELEMETRY ON AND IS NOT COOPERATIVE ON IN ANY WAY AND IS VIOLENT TO STAFF AND IS UNSAFE TO SELF.
[2020-12-06] MEDS: IPRATROPIUM BR 0.02% INH SOLN 0.5 MG/2.5 ML VIAL INHALATION ×2 (02:14→19:57)
--- NOTE | 2020-12-06 02:40 | PC.NURSE ---
PATIENT REFUSES TO WEAR TELEMETRY AND DR BARTLETT IS AWARE.
--- NOTE | 2020-12-06 05:19 | PC.NURSE ---
PATIENT FINALLY ASLEEP. WAS ABLE TO FINALLY SNEAK IN AND PLACE TELEMETRY BACK ON PATIENT.
--- NOTE | 2020-12-06 06:04 | PC.NURSE ---
DR PENA IS AWARE THAT PATIENT HAS NO IV ACCESS AND IS REFUSING ALL MEDICATIONS AND TEST.
[2020-12-06] MEDS: LORazepam (*CRX) 1 MG TABLET PO (07:40)
--- NOTE | 2020-12-06 08:15 | PM.PNPUL ---
Progress Note: A&P Assessment and Plan (1) Community acquired pneumonia: Code(s): J18.9 - Pneumonia, unspecified organism Status: Acute Assessment and Plan: 12/05 Patient presents with 1 week history of fever, dry cough, shortness of breath and weakness. he is also hyponatremic. Patient has a dense right upper lobe infiltrate and left upper lobe and lingula mild infiltrates. COVID rapid test negative. CTA without PE. BNP 107. Patient feels somewhat better on ceftriaxone and azithromycin. Blood cultures are negative. Agree with this antibiotic regimen for CAP. patient was also started on IV Flagyl for pneumonia and I will discontinue this at this time. Urine Legionella antigen, urine pneumococcal antigen and mycoplasma IgG and IgM are pending. 12/06 patient states he clinically has improved there are no crackles in the right upper lobe today. Would continue ceftriaxone, azithromycin, and vancomycin for now. Follow identification of the blood cultures. I will repeat a chest x-ray in the morning to assess his right upper lobe infiltrate. COVID RT PCR test is negative. When ready for discharge would give him Levaquin 750 mg p.o. q.day to finish a total of [address] antibiotics[address] Spoke with Dr. Ko. Will follow with you (2) Asthma-COPD overlap syndrome: Code(s): J44.9 - Chronic obstructive pulmonary disease, unspecified Status: Acute Assessment and Plan: 12/05. Patient tells me he is asthma since childhood and has been on inhalers all his life. He also tells me he has COPD but has minimal tobacco use and no paraseptal or centrilobular emphysema on a CT scan of the chest. He is followed at [facility] in his recently had a workup at [facility] a month ago in which they did multiple tests. I do not have any of these records currently. He is on 3 L at night and none during the day. He is maintained on Symbicort, Spiriva, theophylline, and albuterol 10 mg p.o. q.12 hours as well as aggressive treatment for allergies and sinus disease with fluticasone nasal spray and montelukast 10 mg p.o. q.day. Today patient has no wheezes on exam and I will change him to prednisone 30 mg p.o. q.day which he tells me is his home dose. I will continue ipratropium nebulizer 0.5 mg Q 6 hours, I will change his albuterol nebulizers to leave albuterol as he has AFib with RVR at a dose of 1.25 mg Q 6 hours. I will continue his montelukast 10 mg p.o. q.day, fluticasone nasal spray and Claritin 10 mg q.day for his allergies and sinus congestion. Patient states he wears 3 L nasal cannula at night and none during the day. Currently his saturations are 94% on room air and I will order 3 L nasal cannula when he sleeps. 12/06 patient has no wheezes on exam. Patient had some confusion last night and at this time I will discontinue his prednisone. Continue levalbuterol and ipratropium nebulizers. He clarified his prednisone use today. He said he was on 30 mg of prednisone for 30 years up until 2-3 years ago when he was discontinued. Recently he gets prednisone bursts from his primary and from his Pulmonary team in [place] approximately once every 2 months when he has breathing issues and it sounds like he takes a 7-10 day taper when he is on the prednisone. When ready for discharge would continue his home medical regimen consisting of Symbicort, Spiriva, theophylline ER, montelukast, fluticasone nasal spray and albuterol rescue and follow-up with his Pulmonary team a [place]. Subjective Date/time seen: 12/06/20 08:15 Interval history: This is a new Pulmonary consult for atypical pneumonia and COPD This is a 65-year-old man with a history of asthma since childhood and COPD who presented with 1 week worsening shortness of breath, weakness on 12/04/2020. Patient states that he has had a fever, headache, dry cough with no purulence sputum or hemoptysis worsening shortness of breath and weakness over t
--- NOTE | 2020-12-06 10:57 | PM.IMPN ---
Progress Note: A&P Assessment and Plan (1) Severe sepsis: Code(s): A41.9 - Sepsis, unspecified organism; R65.20 - Severe sepsis without septic shock Status: Acute Assessment and Plan: Fevers, tachycardia, hypoxia, elevated lactic acid initially Lactic acidosis resolved with IV fluid resuscitation IV azithromycin and Rocephin, given now he is on room air and stable, transition to levofloxacin daily to finish a 7 day course. Urinalysis and urine cultures Blood cultures showing 1/2 with GPCs. Added Vancomycin and need to repeat cultures, unfortunately has not allowed this will re-attempt today. Will readdress with him today. COVID negative Atypical serologies and urinary antigens pending (2) Community acquired pneumonia: Code(s): J18.9 - Pneumonia, unspecified organism Status: Acute Assessment and Plan: Transition from azithromycin Rocephin to oral Levaquin finish a 7 day course, this was discussed with Pulmonary. Multifocal pneumonia predominantly right upper lobe community-acquired pneumonia. COVID negative With hyponatremia and diarrhea possibly Legionnaire's disease. Atypical serologies and urinary antigens pending (3) Acute respiratory failure with hypoxia: Code(s): J96.01 - Acute respiratory failure with hypoxia Status: Acute Assessment and Plan: Community-acquired pneumonia verses Aspiration pneumonia versus COVID or viral pneumonia versus Atypical pneumonia such as legionnaires Albuterol and ipratropium inhaler treatment. D-dimer is elevated at 14.5. CT angio scan 12/04: Multifocal bilateral pulmonary infiltrates, with particularly prominent consolidation in the right upper lobe Negative troponin x3, ordered an echo to be done. Appreciate passenger coach driver consultation and treatment Now on room air saturating in the 90% (4) Acute hyponatremia: Code(s): E87.1 - Hypo-osmolality and hyponatremia Status: Acute Assessment and Plan: Significantly hyponatremic likely due to his attempt to hydrate himself well not really eating, and this could also explain his weakness. Also lung pathology and being on Lexapro. Severe hyponatremia sodium level of 118 on admission. Received normal saline and hypertonic saline x 1: 12/04. Started on fluid restriction. Appreciate pantry chef consultation and treatment Sodium now much improved (5) COPD (chronic obstructive pulmonary disease): Code(s): J44.9 - Chronic obstructive pulmonary disease, unspecified Status: Acute Assessment and Plan: Inhalers, Montelukast, guaifenesin PRN. Appreciate Pulmonary. He sees Refinery Operator Coking Sharlene Azar at [facility]. in [place], [place]. (6) Atrial fibrillation with rapid ventricular response: Code(s): I48.91 - Unspecified atrial fibrillation Status: Acute Assessment and Plan: This has been intermittent and more pronounced when he is agitated. This is new for him that we know. He was initially started on diltiazem infusion, however he removed his IV and we were unable to give him further. Initiated metoprolol 25 mg b.i.d. Titrate as tolerated. Echocardiogram 12/05 did show [id number] pericardial effusion. This is of unclear etiology. Left and right ventricular function noted to be normal. Will consult cardiology for evaluation. (7) Acute encephalopathy: Code(s): G93.40 - Encephalopathy, unspecified Status: Acute Assessment and Plan: Metabolic versus toxic. He is alert and oriented x3, is insistent leaving today, I did speak with his significant other who lives with him, Renetta Austin, and she will be visiting with him today. Although he had improved from a respiratory standpoint, would like to repeat his blood cultures if remains intermittent confusion obtain blood work to recheck his sodium, other electrolytes, and CT scan of the head which is not allowed. We will follow him closely today and reassess luis
[2020-12-06 11:30] LABS: Basophils Percent Auto 0.1 % (0.2-1.2); Hematocrit 39.6 % (42.0-52.0); Hemoglobin 13.8 g/dL (14.0-18.0); Immature Granulocyte Absolute 0.15 K/mm3 (0.00-0.031); Immature Granulocyte Percent A 1.1 % (0-0.5); Lymphocytes Absolute Auto 1.25 K/mm3 (0.9-3.2); Mean Corpuscular HGB Conc 34.8 g/dl (32-36); Mean Corpuscular Hemoglobin 31.2 pg (26-34); Mean Corpuscular Volume 89.6 fl (80-100); Mean Platelet Volume 10.1 fl (7.4-10.4); Monocytes Absolute Auto 1.1 K/mm3 (0.1-0.6); Monocytes Percent Auto 7.8 % (2.6-8.5); Neutrophils Absolute Auto 11.4 K/mm3 (1.3-6.7); Platelet Count Result 357 k/mm3 (150-375); Red Blood Count 4.42 M/mm3 (4.6-6.20); Red Cell Distribution Width 14.1 % (11.5-14.5); White Blood Count 13.9 K/mm3 (4.5-10.0)
[2020-12-06 11:59] LABS: NT Pro B Type Natriuretic Pept 1170 pg/mL (5-100)
[2020-12-06 12:04] LABS: Alanine Aminotransferase 63 U/L (4-50); Albumin Level 3.3 g/dL (3.5-5.1); Alkaline Phosphatase 134 U/L (38-126); Anion Gap 6 mmol/L (8-16); Aspartate Amino Transferase 84 U/L (17-59); Bilirubin,Total 0.6 mg/dL (0.2-1.3); Blood Urea Nitrogen 28 mg/dL (9-20); Calcium 8.8 mg/dL (8.4-10.2); Carbon Dioxide 24 mmol/L (22-30); Chloride 100 mmol/L (98-107); Estimated CRCL calculation 95 ml/min; Estimated Glomerular Filt Rate > 60; Glucose 147 mg/dL (65-110); Lactate Dehydrogenase 1414 U/L (313-618); Potassium 4.2 mmol/L (3.4-5.0); Sodium 130 mmol/L (137-145)
[2020-12-06 12:21] LABS: CRP 23.8 mg/dL (<1.0)
[2020-12-06] MEDS: METOPROLOL TARTRATE 25 MG TABLET PO (12:36)
[2020-12-06] MEDS: ENOXAPARIN 40 MG/0.4 ML SYRINGE SUB-Q (12:37)
[2020-12-06] MEDS: LORATADINE 10 MG TABLET PO (12:37)
[2020-12-06] MEDS: guaiFENesin 12 HR 600 MG TABCR 1200 MG PO ×2 (12:37→20:18)
[2020-12-06] MEDS: FLUTICASONE PROPIONATE 0.05% NA SPR 16 GM BTL (*BKC) 1 SPRAY NASAL ×2 (12:37→20:18)
[2020-12-06] MEDS: MONTELUKAST SODIUM 10 MG TABLET PO (12:37)
--- NOTE | 2020-12-06 13:17 | ECG_ITS ---
Measurements Intervals [place] Rate: 101 P: GA: 0 QRS: 85 QRSD: 121 T: 37 QT: 321 QTc: 418 Interpretive Statements ATRIAL FIBRILLATION WITH RAPID VENTRICULAR RESPONSE RIGHT BUNDLE BRANCH BLOCK ABNORMAL ECG Electronically Signed On 12-06-2020 13:38:24 CDT by Geraldo Brock D.O.
--- NOTE | 2020-12-06 13:25 | PM.PNNEP ---
Progress Note: A&P Assessment and Plan (1) Hyponatremia: Code(s): E87.1 - Hypo-osmolality and hyponatremia Status: Acute Assessment and Plan: improving acute versus chronic versus acute on chronic??? etiology/risk factors: - excessive free water intake - SSRI use (lexapro) - acute lung pathology (pneumonia) - chronic lung issues (COPD + asthma) - pre-renal factors (low urine sodium) - narcotics (percocet use) no real improvement with IV normal saline remains on fluid restriction s/p of 3% saline x 1 on this admission goal of therapy is a rate of change of 4 - 6mmol/L (but not exceed 8mmol/L) in a 24 hours - this is being maintained so far cortisol okay but TSH low but free thyroxine okay SPEP, UPEP, and urine/serum osmolality pending acute versus chronic versus acute on chronic??? etiology/risk factors: - excessive free water intake - SSRI use (lexapro) - acute lung pathology (pneumonia) - chronic lung issues (COPD + asthma) - pre-renal factors (low urine sodium) - narcotics (percocet use) no real improvement with IV normal saline started on fluid restriction s/p of 3% saline x 1 yesterday goal of therapy is a rate of change of 4 - 6mmol/L (but not exceed 8mmol/L) in a 24 hours - this is being maintained so far cortisol okay but TSH low -- waiting for T4 SPEP, UPEP, and urine/serum osmolality pending (2) Community acquired pneumonia: Code(s): J18.9 - Pneumonia, unspecified organism Status: Acute Assessment and Plan: as noted by imaging on admission follow up on cultures (noted 1/2 bottles with Staph) on antibiotics supplemental oxygen (has been weaned off) (3) Acute respiratory failure with hypoxia: Code(s): J96.01 - Acute respiratory failure with hypoxia Status: Acute Assessment and Plan: complicated by #2 and #4 continue current interventions Pulmonary consulted with recommendations noted follow respiratory status (4) COPD (chronic obstructive pulmonary disease): Code(s): J44.9 - Chronic obstructive pulmonary disease, unspecified Status: Acute Assessment and Plan: known diagnosis continue nebulizer treatments and steroids Pulmonary following continus supportive therapy Will continue to follow. Subjective Date/time seen: 12/06/20 13:25 Respiratory status continues to improve if not remain stable; noted issues overnight with regard to agitation and combativeness; apparently wanted to leave the hospital earlier today; intermittent atrial fibrillation noted as well Exam Narrative: General: WD/WN male in NAD Heart: normal S1 and S2; no rub Lungs: coarse breath sounds Abdomen: soft, nontender, nondistended, positive bowel sounds Extremities: no cyanosis or clubbing; no edema Skin: warm and dry Objective Data Vital Signs Vital Signs: Vital Signs Temp Pulse Resp BP Pulse Ox 12/06/20 13:12 35.8 C L 130 H 24 H 118/60 96 12/06/20 12:00 120 H 20 96 12/06/20 08:00 120 H 20 96 12/06/20 07:13 36.4 C 94 20 146/80 H 96 12/06/20 06:00 106 H 12/06/20 04:00 36.4 C 102 H 18 139/72 97 12/06/20 02:43 0 L 12/06/20 00:00 106 H 16 95 12/05/20 23:40 36.4 C L 93 16 130/74 95 12/05/20 20:35 97 20 12/05/20 20:00 36.6 C 90 20 138/96 H 96 12/05/20 16:00 37.1 C 95 18 129/77 95 Intake/Output Intake/Output: Intake & Output 12/03/20 12/04/20 12/05/20 12/06/20 23:59 23:59 23:59 23:59 Intake Total 3580 1190 220 Output Total 1275 900 900 Balance 2305 290 -680 Meds/Results Medications: Active Medications Generic Name Dose Route Start Last Admin Trade Name Freq PRN Reason Stop Dose Admin Hydrocodone Bitart/Acetaminophen 1 tab 12/04/20 13:23 Hydroco
--- NOTE | 2020-12-06 13:25 | P.PNNP_ITS ---
Progress Note: A&P Assessment and Plan (1) Hyponatremia: Code(s): E87.1 - Hypo-osmolality and hyponatremia Status: Acute Assessment and Plan: * improving * acute versus chronic versus acute on chronic??? * etiology/risk factors: - excessive free water intake - SSRI use (lexapro) - acute lung pathology (pneumonia) - chronic lung issues (COPD + asthma) - pre-renal factors (low urine sodium) - narcotics (percocet use) * no real improvement with IV normal saline * remains on fluid restriction * s/p of 3% saline x 1 on this admission * goal of therapy is a rate of change of 4 - 6mmol/L (but not exceed 8mmol/L) in a 24 hours - this is being maintained so far * cortisol okay but TSH low but free thyroxine okay * SPEP, UPEP, and urine/serum osmolality pending * acute versus chronic versus acute on chronic??? * etiology/risk factors: - excessive free water intake - SSRI use (lexapro) - acute lung pathology (pneumonia) - chronic lung issues (COPD + asthma) - pre-renal factors (low urine sodium) - narcotics (percocet use) * no real improvement with IV normal saline * started on fluid restriction * s/p of 3% saline x 1 yesterday * goal of therapy is a rate of change of 4 - 6mmol/L (but not exceed 8mmol/L) in a 24 hours - this is being maintained so far * cortisol okay but TSH low -- waiting for T4 * SPEP, UPEP, and urine/serum osmolality pending (2) Community acquired pneumonia: Code(s): J18.9 - Pneumonia, unspecified organism Status: Acute Assessment and Plan: * as noted by imaging on admission * follow up on cultures (noted 1/2 bottles with Staph) * on antibiotics * supplemental oxygen (has been weaned off) (3) Acute respiratory failure with hypoxia: Code(s): J96.01 - Acute respiratory failure with hypoxia Status: Acute Assessment and Plan: * complicated by #2 and #4 * continue current interventions * Pulmonary consulted with recommendations noted * follow respiratory status (4) COPD (chronic obstructive pulmonary disease): Code(s): J44.9 - Chronic obstructive pulmonary disease, unspecified Status: Acute Assessment and Plan: * known diagnosis * continue nebulizer treatments and steroids * Pulmonary following * continus supportive therapy Will continue to follow. Subjective Date/time seen: 12/06/20 13:25 Respiratory status continues to improve if not remain stable; noted issues overnight with regard to agitation and combativeness; apparently wanted to leave the hospital earlier today; intermittent atrial fibrillation noted as well Exam Narrative: General: WD/WN male in NAD Heart: normal S1 and S2; no rub Lungs: coarse breath sounds Abdomen: soft, nontender, nondistended, positive bowel sounds Extremities: no cyanosis or clubbing; no edema Skin: warm and dry Objective Data Vital Signs Vital Signs: Vital Signs Temp Pulse Resp BP Pulse Ox 12/06/20 13:12 35.8 C L 130 H 24 H 118/60 96 12/06/20 12:00 120 H 20 96 12/06/20 08:00 120 H 20 96 12/06/20 07:13 36.4 C 94 20 146/80 H 96 12/06/20 06:00 106 H 12/06/20 04:00 36.4 C 102 H 18 139/72 97 12/06/20 02:43 0 L 12/06/20 00:00 106
--- NOTE | 2020-12-06 13:25 | PM.CNCAR ---
Assessment and Plan Assessment and plan (1) Atrial fibrillation with rapid ventricular response: Code(s): I48.91 - Unspecified atrial fibrillation <SINDY Lewis - Last Filed: 12/06/20 15:39> Status: Acute <SINDY Lewis - Last Filed: 12/06/20 15:39> Assessment and Plan: New onset since hospital admission. Was initially in sinus tachycardia but developed atrial fibrillation with rapid ventricular response shortly after admission. Atrial fibrillation likely 2/2 acute illness with pneumonia, bacteremia. He was placed on a diltiazem drip initially but unfortunately his IV access was lost overnight last night. At that time he was started on metoprolol which has been providing some degree of rate control although he has had some periods of RVR throughout the day. Will proceed with rate control strategy for now with plan for possible DC cardioversion as an outpatient in the future when he is able to be safely anticoagulated for 4-6 weeks prior to GILA/CV. Increase metoprolol to 50mg b.i.d. Not a candidate for OAC at this time. Very confused and high risk for falls. Will re-evaluate appropriateness/safety of systemic anticoagulation when patient's mental status improves Will initiate ASA 325mg Echocardiogram from today showed a hyperdynamic LV with EF >70%. No significant valve pathology. There is a mild-moderate pericardial effusion with fibrinous material within the pericardial space. No concern for tamponade. <SINDY Lewis - Last Filed: 12/06/20 15:39> (2) Community acquired pneumonia: Code(s): J18.9 - Pneumonia, unspecified organism <SINDY Lewis - Last Filed: 12/06/20 15:39> Status: Acute <SINDY Lewis - Last Filed: 12/06/20 15:39> Assessment and Plan: Being treated with levaquin. Management per primary service <SINDY Lewis - Last Filed: 12/06/20 15:39> (3) Hyponatremia: Code(s): E87.1 - Hypo-osmolality and hyponatremia <SINDY Lewis - Last Filed: 12/06/20 15:39> Status: Acute <SINDY Lewis - Last Filed: 12/06/20 15:39> Assessment and Plan: Sodium 118 on admission. This is being corrected, Na 130 today. Appreciate nephrology input. <SINDY Lewis - Last Filed: 12/06/20 15:39> (4) COPD (chronic obstructive pulmonary disease): Code(s): J44.9 - Chronic obstructive pulmonary disease, unspecified <SINDY Lewis - Last Filed: 12/06/20 15:39> Status: Acute <SINDY Lewis - Last Filed: 12/06/20 15:39> Assessment and Plan: Management per primary service <Jaki De LeonySINDY - Last Filed: 12/06/20 15:39> (5) Pericardial effusion: Code(s): I31.3 - Pericardial effusion (noninflammatory) <Jaki De Leonjeremias SINDY - Last Filed: 12/06/20 15:39> Status: Acute <SINDY Lewis - Last Filed: 12/06/20 15:39> Additional Plan Attending addendum: I have personally seen and examined this patient at bedside. Agree with the above documentation and plan of care as outlined. We were asked to see this patient for atrial fibrillation with rapid ventricular response. He was originally admitted 12/04/2020 with nonspecific complaints of not feeling well. He was noted to be tachycardic, febrile and short of breath with right upper lobe infiltrates consistent with pneumonia for which he has been placed on antibiotics. He was ruled out for PE with negative CT chest PE protocol. COVID swab negative. He was severely hyponatremic at 1:18 a.m. with positive Gram-positive cocci 1/2 positive 12/04/2020. Earlier today, patient was erratic, noncooperative with medical therapy not taking medications, pulled out his IV for which he was started on Cardizem infusion to control his atrial fibrillation. Patient was threatening to leave against medical advice but is confused. Patient eventually agree
[2020-12-06] MEDS: levoFLOXacin 750 MG TABLET PO (14:13)
[2020-12-06 16:10] LABS: Alveolar/Arterial O2 Gradient 33.6 mmHg; Base Excess ABG 1.7 mEq/l (+/-2.0); Fractional Inspired Oxygen 21 %; Oxygen Content ABG 19.6 %vol (16.0-22.0); Oxygen Saturation ABG 95.6 % (95.0-100.0); Oxyhemoglobin 94.1 % THb (90.0-100.0); PCO2 ABG 35.6 mmHg (35.0-45.0); PO2 ABG 73.5 mmHg (80.0-100.0); Total Hemoglobin 14.8 g/dL (12.0-18.0); pH ABG 7.465 (7.350-7.450)
[2020-12-06 16:11] LABS: Device ROOM AIR; Modified Allen's Test Pass; Site Drawn LEFT RADIAL
[2020-12-06 16:13] LABS: Mycoplasma IgM Antibody Titer 223 U/mL (<770)
[2020-12-06] MEDS: FAMOTIDINE 20 MG TABLET 40 MG PO (18:24)
[2020-12-06] MEDS: HYDROcodone/acetaminophen (*CRX) 5-325 MG TABLET 1 TAB PO (18:25)
[2020-12-06] MEDS: METOPROLOL TARTRATE 50 MG TAB PO (20:18)
[2020-12-06 23:31] LABS: Pneumococcal Antigen Urine Not Detected (Not Detected)
[2020-12-07] VITALS (25 sets, daily range): BP systolic 106–114; BP diastolic 48–70; PULSE 77–141; RESP 20–28; TEMP 35.9–37.2; O2SAT 92–99
[2020-12-07] MEDS: IPRATROPIUM BR 0.02% INH SOLN 0.5 MG/2.5 ML VIAL INHALATION ×4 (01:56→20:47)
[2020-12-07 05:31] LABS: Basophils Percent Auto 0.2 % (0.2-1.2); Eosinophils Percent Auto 0.2 % (0-4.4); Hematocrit 38.1 % (42.0-52.0); Hemoglobin 13.3 g/dL (14.0-18.0); Immature Granulocyte Percent A 0.9 % (0-0.5); Lymphocytes Absolute Auto 1.91 K/mm3 (0.9-3.2); Lymphocytes Percent Auto 17.2 % (18.3-44.2); Mean Corpuscular HGB Conc 34.9 g/dl (32-36); Mean Corpuscular Hemoglobin 30.9 pg (26-34); Mean Corpuscular Volume 88.6 fl (80-100); Mean Platelet Volume 9.8 fl (7.4-10.4); Monocytes Absolute Auto 0.9 K/mm3 (0.1-0.6); Monocytes Percent Auto 8.4 % (2.6-8.5); Neutrophils Absolute Auto 8.1 K/mm3 (1.3-6.7); Neutrophils Percent Auto 73.1 % (45.5-73.1); Platelet Count Result 402 k/mm3 (150-375); Red Cell Distribution Width 14.2 % (11.5-14.5); White Blood Count 11.1 K/mm3 (4.5-10.0)
[2020-12-07 05:48] LABS: NT Pro B Type Natriuretic Pept 1150 pg/mL (5-100)
[2020-12-07 05:55] LABS: Alanine Aminotransferase 125 U/L (4-50); Albumin Level 2.9 g/dL (3.5-5.1); Alkaline Phosphatase 129 U/L (38-126); Anion Gap 2 mmol/L (8-16); Aspartate Amino Transferase 235 U/L (17-59); Bilirubin,Total 0.6 mg/dL (0.2-1.3); Blood Urea Nitrogen 31 mg/dL (9-20); CRP 13.3 mg/dL (<1.0); Calcium 8.3 mg/dL (8.4-10.2); Carbon Dioxide 28 mmol/L (22-30); Chloride 101 mmol/L (98-107); Estimated CRCL calculation 77 ml/min; Estimated Glomerular Filt Rate > 60; Glucose 89 mg/dL (65-110); Potassium 4.1 mmol/L (3.4-5.0); Sodium 131 mmol/L (137-145)
[2020-12-07 07:10] LABS: Osmolality, Urine 679 mOsm/kg (50-1200)
--- NOTE | 2020-12-07 08:53 | PM.PNPUL ---
Progress Note: A&P Assessment and Plan (1) Community acquired pneumonia: Code(s): J18.9 - Pneumonia, unspecified organism Status: Acute Assessment and Plan: 12/05 Patient presents with 1 week history of fever, dry cough, shortness of breath and weakness. he is also hyponatremic. Patient has a dense right upper lobe infiltrate and left upper lobe and lingula mild infiltrates. COVID rapid test negative. CTA without PE. BNP 107. Patient feels somewhat better on ceftriaxone and azithromycin. Blood cultures are negative. Agree with this antibiotic regimen for CAP. patient was also started on IV Flagyl for pneumonia and I will discontinue this at this time. Urine Legionella antigen, urine pneumococcal antigen and mycoplasma IgG and IgM are pending. 12/06 patient states he clinically has improved there are no crackles in the right upper lobe today. Would continue ceftriaxone, azithromycin, and vancomycin for now. Follow identification of the blood cultures. I will repeat a chest x-ray in the morning to assess his right upper lobe infiltrate. COVID RT PCR test is negative. When ready for discharge would give him Levaquin 750 mg p.o. q.day to finish a total of 10 days antibiotics. 12/07 Patient states that his status is about the same as yesterday. States he is 60% back to normal. Currently on room air with sats of 92%. He states his cough is better and has no phlegm. Change to Levaquin p.o. and he is on vancomycin for Staph aureus in his blood. WBC 11.1. Repeat blood cultures are negative. CXR pending. Cardiology and hospitalist managing Afib. If chest x-ray is stable or improved and repeat blood cultures are negative he is stable for discharge from pulmonary perspective On his previous home medical regimen except for the discontinuation of theophylline (new arrythmia) and Levaquin 750 mg p.o. q.day for total of 10 days of antibiotics, last dose on 12/13/20. (2) Asthma-COPD overlap syndrome: Code(s): J44.9 - Chronic obstructive pulmonary disease, unspecified Status: Acute Assessment and Plan: Patient tells me he is asthma since childhood and has been on inhalers all his life. He also tells me he has COPD but has minimal tobacco use and no paraseptal or centrilobular emphysema on a CT scan of the chest. He is followed at [facility] in his recently had a workup at [facility] a month ago in which they did multiple tests. I do not have any of these records currently. Patient followed at [facility] on this home regimen. Symbicort 80/4.5 at 2 puffs BID spireva 18 mcg at 1 inhalation Q day Rescue albuterol 2 puffs Q 4 PRN SOB or wheezing montelukast 10 mg PO Q day Fluticasone nasal spray at 1 puff Q day Theophylline ER 300 PO Q 12 RA rest and ambulation and 3 L at night. 12/05 Today patient has no wheezes on exam and I will change him to prednisone 30 mg p.o. q.day which he tells me is his home dose. I will continue ipratropium nebulizer 0.5 mg Q 6 hours, I will change his albuterol nebulizers to levalbuterol as he has AFib with RVR at a dose of 1.25 mg Q 6 hours. Will not restart theophylline as AFIB. I will continue his montelukast 10 mg p.o. q.day, fluticasone nasal spray and Claritin 10 mg q.day for his allergies and sinus congestion. Patient states he wears 3 L nasal cannula at night and none during the day. Currently his saturations are 94% on room air and I will order 3 L nasal cannula when he sleeps. 12/06 patient has no wheezes on exam. Patient had some confusion last night and at this time I will discontinue his prednisone. Continue levalbuterol and ipratropium nebulizers. He clarified his prednisone use today. He said he was on 30 mg of prednisone for 30 years up until 2-3 years ago when he was discontinued. Recently he gets prednisone bursts from his primary and from his Pulmonary team in [place] approximately once every 2 months when he has breathing issues and it sounds like he t
[2020-12-07] MEDS: guaiFENesin 12 HR 600 MG TABCR 1200 MG PO ×2 (08:54→21:36)
[2020-12-07] MEDS: ASPIRIN 325 MG TABLET PO (08:54)
[2020-12-07] MEDS: ENOXAPARIN 40 MG/0.4 ML SYRINGE SUB-Q (08:54)
[2020-12-07] MEDS: LORATADINE 10 MG TABLET PO (08:54)
[2020-12-07] MEDS: METOPROLOL TARTRATE 50 MG TAB PO ×2 (08:55→10:24)
[2020-12-07] MEDS: MONTELUKAST SODIUM 10 MG TABLET PO (08:55)
[2020-12-07] MEDS: QUEtiapine FUMARATE 25 MG TABLET PO ×2 (08:55→21:39)
[2020-12-07] MEDS: ESCITALOPRAM OXALATE 10 MG TABLET PO (08:55)
[2020-12-07] MEDS: FLUTICASONE PROPIONATE 0.05% NA SPR 16 GM BTL (*BKC) 1 SPRAY NASAL ×2 (08:55→21:35)
--- NOTE | 2020-12-07 09:28 | PM.IMPN ---
Progress Note: A&P Assessment and Plan (1) Severe sepsis: Code(s): A41.9 - Sepsis, unspecified organism; R65.20 - Severe sepsis without septic shock Status: Acute Assessment and Plan: Fevers, tachycardia, hypoxia, elevated lactic acid initially Lactic acidosis resolved with IV fluid resuscitation IV azithromycin and Rocephin, given now he is on room air and stable, transition to levofloxacin daily to finish a 10 day course (last dose 12/13). Urine culture negative Blood cultures showing 1/2 with Staph aureus-MSSA. Added Vancomycin and cultures repeated 12/06 negative so far. He did not get vancomycin 12/06 as he refused IV. He is agreeable to that today. The significance of the initial positive culture with Staph aureus is unclear. Will ask Infectious Disease for recommendation. COVID negative Atypical serologies and urinary antigens pending (2) Community acquired pneumonia: Code(s): J18.9 - Pneumonia, unspecified organism Status: Acute Assessment and Plan: Transition from azithromycin Rocephin to oral Levaquin finish a 10 day course, last day 12/13, this was discussed with Pulmonary. Multifocal pneumonia predominantly right upper lobe community-acquired pneumonia. COVID negative With hyponatremia and diarrhea possibly Legionnaire's disease. Atypical serologies and urinary antigens pending (3) Acute respiratory failure with hypoxia: Code(s): J96.01 - Acute respiratory failure with hypoxia Status: Acute Assessment and Plan: Community-acquired pneumonia verses Aspiration pneumonia versus COVID or viral pneumonia versus Atypical pneumonia such as legionnaires Albuterol and ipratropium inhaler treatment. D-dimer is elevated at 14.5. CT angio scan 12/04: Multifocal bilateral pulmonary infiltrates, with particularly prominent consolidation in the right upper lobe Negative troponin x3, ordered an echo to be done. Appreciate artists' booking representative consultation and treatment Now on room air saturating in the 90% (4) Acute hyponatremia: Code(s): E87.1 - Hypo-osmolality and hyponatremia Status: Acute Assessment and Plan: Significantly hyponatremic likely due to his attempt to hydrate himself well not really eating, and this could also explain his weakness. Also lung pathology and being on Lexapro. Severe hyponatremia sodium level of 118 on admission. Received normal saline and hypertonic saline x 1: 12/04. Started on fluid restriction. Appreciate uniform designer consultation and treatment Sodium now much improved (5) COPD (chronic obstructive pulmonary disease): Code(s): J44.9 - Chronic obstructive pulmonary disease, unspecified Status: Acute Assessment and Plan: Inhalers, Montelukast, guaifenesin PRN. Appreciate Pulmonary. He sees Manager Nursing Home Sharlene Azar at [facility]. in [place], [place]. (6) Atrial fibrillation with rapid ventricular response: Code(s): I48.91 - Unspecified atrial fibrillation Status: Acute Assessment and Plan: This has been intermittent and more pronounced when he is agitated. This is new for him that we know. He was initially started on diltiazem infusion, however he removed his IV and we were unable to give him further. Echocardiogram 12/05 did show [id number] pericardial effusion. This is of unclear etiology. Left and right ventricular function noted to be normal. Consult Cardiology. Appreciate help. Initiated metoprolol 25 mg b.i.d., now increased to 100 mg BID per cardiology. Titrate as tolerated. (7) Elevated liver enzymes: Code(s): R74.8 - Abnormal levels of other serum enzymes Status: Acute Assessment and Plan: Unclear etiology. Will check hepatitis panel. Check CK level. Check RUQ US. Monitor. (8) Acute encephalopathy: Code(s): G93.40 - Encephalopathy, unspecified Status: Acute Assessment and Plan: Metabolic versus toxic. This i
[2020-12-07] MEDS: levoFLOXacin 750 MG TABLET PO (10:25)
--- NOTE | 2020-12-07 12:48 | PM.PNNEP ---
Progress Note: A&P Assessment and Plan (1) Hyponatremia: Code(s): E87.1 - Hypo-osmolality and hyponatremia Status: Acute Assessment and Plan: improving acute versus chronic versus acute on chronic??? etiology/risk factors: - excessive free water intake - SSRI use (lexapro) - acute lung pathology (pneumonia) - chronic lung issues (COPD + asthma) - pre-renal factors (low urine sodium) - narcotics (percocet use) no real improvement with IV normal saline remains on fluid restriction - will cut back to 1800cc/day s/p of 3% saline x 1 on this admission goal of therapy is a rate of change of 4 - 6mmol/L (but not exceed 8mmol/L) in a 24 hours - this is being maintained so far cortisol okay but TSH low but free thyroxine okay SPEP, UPEP, and urine/serum osmolality pending (2) Community acquired pneumonia: Code(s): J18.9 - Pneumonia, unspecified organism Status: Acute Assessment and Plan: as noted by imaging on admission follow up on cultures (noted 1/2 bottles with Staph) on antibiotics off supplemental oxygen (3) Acute respiratory failure with hypoxia: Code(s): J96.01 - Acute respiratory failure with hypoxia Status: Acute Assessment and Plan: complicated by #2 and #4 continue current interventions Pulmonary following with recommendations noted follow respiratory status (4) COPD (chronic obstructive pulmonary disease): Code(s): J44.9 - Chronic obstructive pulmonary disease, unspecified Status: Acute Assessment and Plan: known diagnosis continue nebulizer treatments and steroids Pulmonary following continus supportive therapy Will continue to follow. Subjective Date/time seen: 12/07/20 12:48 Apparently more calm and relaxed overnight and earlier this AM after receiving Seroquel; respiratory status continues to improve as well; no other issues/events overnight or earlier this AM. Exam Narrative: General: WD/WN male in NAD Heart: normal S1 and S2; no rub Lungs: coarse breath sounds Abdomen: soft, nontender, nondistended, positive bowel sounds Extremities: no cyanosis or clubbing; no edema Skin: warm and intact Objective Data Vital Signs Vital Signs: Vital Signs Temp Pulse Resp BP Pulse Ox 12/07/20 12:32 37.2 C 90 20 109/67 96 12/07/20 12:00 97 12/07/20 10:00 120 H 12/07/20 09:06 133 H 28 H 12/07/20 08:58 92 12/07/20 08:57 127 H 28 H 12/07/20 08:50 37.0 C 116 H 24 H 112/62 97 12/07/20 08:00 141 H 12/07/20 06:00 107 H 12/07/20 04:00 36.7 C 87 20 114/65 99 12/07/20 02:00 88 12/07/20 00:00 77 12/06/20 23:18 36.6 C 71 18 110/69 97 12/06/20 22:00 77 12/06/20 20:18 113 H 12/06/20 20:08 103 H 20 12/06/20 20:02 95 12/06/20 20:01 102 H 20 12/06/20 20:00 36.6 C 103 H 20 112/72 98 12/06/20 17:19 37.1 C 100 20 106/57 L 95 12/06/20 16:00 120 H 20 96 Intake/Output Intake/Output: Intake & Output 12/04/20 12/05/20 12/06/20 12/07/20 23:59 23:59 23:59 23:59 Intake Total 3580 1190 840 740 Output Total 2155 849 0376 Balance 2305 290 -360 740 Meds/Results Medications: Active Medications Generic Name Dose Route Start Last Admin Trade Name Freq PRN Reason Stop Dose Admin Hydrocodone Bitart/Acetaminophen 1 tab 12/04/20 13:23 12/06/20 18:25 Hydrocodone/Acetaminophen (*Crx) 5-325 Mg Tablet PO 1 tab Q6H PRN Administration Pain Rated 6 or Greater Aspirin 325 mg 12/07/20 08:00 12/07/20 08:54 Aspirin 325 Mg Tablet PO 325 mg DAILY@0800 ORQUIDEA Administration Enoxaparin Sodium 40 mg 12/04/20 09:00 12/07/20 08:54 Enoxaparin 40 Mg/0.4 Ml Syringe SUB-Q 40 mg DAILY ORQUIDEA Administration Escitalopram Oxalate 10 mg 12/07/20 09:00 12/07/20 08:55 Escitalopram Oxalate 10 Mg
--- NOTE | 2020-12-07 12:48 | P.PNNP_ITS ---
Progress Note: A&P Assessment and Plan (1) Hyponatremia: Code(s): E87.1 - Hypo-osmolality and hyponatremia Status: Acute Assessment and Plan: * improving * acute versus chronic versus acute on chronic??? * etiology/risk factors: - excessive free water intake - SSRI use (lexapro) - acute lung pathology (pneumonia) - chronic lung issues (COPD + asthma) - pre-renal factors (low urine sodium) - narcotics (percocet use) * no real improvement with IV normal saline * remains on fluid restriction - will cut back to 1800cc/day * s/p of 3% saline x 1 on this admission * goal of therapy is a rate of change of 4 - 6mmol/L (but not exceed 8mmol/L) in a 24 hours - this is being maintained so far * cortisol okay but TSH low but free thyroxine okay * SPEP, UPEP, and urine/serum osmolality pending (2) Community acquired pneumonia: Code(s): J18.9 - Pneumonia, unspecified organism Status: Acute Assessment and Plan: * as noted by imaging on admission * follow up on cultures (noted 1/2 bottles with Staph) * on antibiotics * off supplemental oxygen (3) Acute respiratory failure with hypoxia: Code(s): J96.01 - Acute respiratory failure with hypoxia Status: Acute Assessment and Plan: * complicated by #2 and #4 * continue current interventions * Pulmonary following with recommendations noted * follow respiratory status (4) COPD (chronic obstructive pulmonary disease): Code(s): J44.9 - Chronic obstructive pulmonary disease, unspecified Status: Acute Assessment and Plan: * known diagnosis * continue nebulizer treatments and steroids * Pulmonary following * continus supportive therapy Will continue to follow. Subjective Date/time seen: 12/07/20 12:48 Apparently more calm and relaxed overnight and earlier this AM after receiving Seroquel; respiratory status continues to improve as well; no other issues /events overnight or earlier this AM. Exam Narrative: General: WD/WN male in NAD Heart: normal S1 and S2; no rub Lungs: coarse breath sounds Abdomen: soft, nontender, nondistended, positive bowel sounds Extremities: no cyanosis or clubbing; no edema Skin: warm and intact Objective Data Vital Signs Vital Signs: Vital Signs Temp Pulse Resp BP Pulse Ox 12/07/20 12:32 37.2 C 90 20 109/67 96 12/07/20 12:00 97 12/07/20 10:00 120 H 12/07/20 09:06 133 H 28 H 12/07/20 08:58 92 12/07/20 08:57 127 H 28 H 12/07/20 08:50 37.0 C 116 H 24 H 112/62 97 12/07/20 08:00 141 H 12/07/20 06:00 107 H 12/07/20 04:00 36.7 C 87 20 114/65 99 12/07/20 02:00 88 12/07/20 00:00 77 12/06/20 23:18 36.6 C 71 18 110/69 97 12/06/20 22:00 77 12/06/20 20:18 113 H 12/06/20 20:08 103 H 20 12/06/20 20:02 95 12/06/20 20:01 102 H 20 12/06/20 20:00 36.6 C 103 H 20 112/72 98 12/06/20 17:19 37.1 C 100 20 106/57 L 95 12/06/20 16:00 120 H 20 96 Intake/Output Intake/Output: Intake & Output 12/04/20 12/05/20 12/06/20 12/07/20 23:59 23:59 23:59 23:59 Intake Total 3580 1190 840 740
--- NOTE | 2020-12-07 13:22 | PCOTNOTE ---
Attempted to see patient this pm. Pt sleeping upon entering and declined therapy stating, No, I don't feel like doing anything. I'm just dosing off here in the chair. Maybe tomorrow.
--- NOTE | 2020-12-07 13:27 | PM.PNCARD ---
Progress Note: A&P Assessment and Plan (1) Atrial fibrillation with rapid ventricular response: Code(s): I48.91 - Unspecified atrial fibrillation Status: Acute Assessment and Plan: New onset since hospital admission. Was initially in sinus tachycardia but developed atrial fibrillation with rapid ventricular response shortly after admission. Atrial fibrillation likely 2/2 acute illness with pneumonia, bacteremia. Will proceed with rate control strategy for now with plan for possible DC cardioversion as an outpatient in the future when he is able to be safely anticoagulated for 4-6 weeks prior to GILA/CV. Heart rate poorly controlled this morning despite metoprolol 50 mg b.i.d.. Increase metoprolol to 100mg b.i.d. as heart rate poorly controlled. Up titrate as tolerated and heart rate requires. Not a candidate for A/C at this time due to confusion and high risk for falls. Will re-evaluate appropriateness/safety of systemic anticoagulation when patient's mental status improves Continue ASA 325mg Echocardiogram EF >70%. No significant valve pathology. There is a mild-moderate pericardial effusion with fibrinous material within the pericardial space. No evidence for tamponade. (2) Community acquired pneumonia: Code(s): J18.9 - Pneumonia, unspecified organism Status: Acute Assessment and Plan: Being treated with levaquin. Management per primary service (3) Hyponatremia: Code(s): E87.1 - Hypo-osmolality and hyponatremia Status: Acute Assessment and Plan: Sodium 118 on admission much improved currently on 1200 cc fluid restriction daily. Perhaps this can be increased by Nephrology appropriate.. This is being corrected, Na 131 today. Appreciate nephrology input. (4) COPD (chronic obstructive pulmonary disease): Code(s): J44.9 - Chronic obstructive pulmonary disease, unspecified Status: Acute Assessment and Plan: Management per primary service (5) Pericardial effusion: Code(s): I31.3 - Pericardial effusion (noninflammatory) Status: Acute Assessment and Plan: See above. Mild to moderate no tamponade. Incidental notation. Subjective Date/time seen: Date of service: 12/07/20 13:27 Follow-up for atrial fibrillation with rapid ventricular response Patient remains confused but less so at this morning. Patient complained of feeling dehydrated and 1 more to drink. This morning heart rate poorly controlled AFib 140s 150s BP stable. No chest pain or shortness of breath. No new issues overnight. Review of Systems Review of Systems: Patient complains of feeling thirsty and dehydrated. Denies chest pain, shortness of breath, dizziness or palpitations. Admits to feeling fatigued. All systems reviewed & are unremarkable except as noted in HPI and below Constitutional: Constitutional: Reports as per HPI and Reports no additional constitutional complaints Eyes: Eyes: Reports as per HPI and Reports no additional eye complaints ENT: Reports system reviewed and no additional complaints, except as documented and Reports as per HPI Cardiovascular: Cardiovascular: Reports as per HPI and Reports no additional cardiovascular complaints Respiratory: Respiratory: Reports as per HPI and Reports no additional respiratory complaints Gastrointestinal: Gastrointestinal: Reports as per HPI and Reports no additional gastrointestinal complaints Genitourinary: Genitourinary: Reports no additional male genitourinary complaints and Reports as per HPI Musculoskeletal: Musculoskeletal: Reports no additional musculoskeletal complaints and Reports as per HPI Integumentary/Breasts: Skin/Breast: Reports system reviewed and no additional complaints, except as docu and Reports as per HPI Neurologic: Reports system reviewed and no additional complaints, except as documented and Reports as per HPI Psychiatric: Psychiatric: Reports no additional psychiatric compla
[2020-12-07 14:23] LABS: Albumin 2.5 g/dL (3.8-4.8); Alpha 1 Globulin 0.8 g/dL (0.2-0.3); Beta 1 Globulin 0.4 g/dL (0.4-0.6); Gamma Globulin 0.7 g/dL (0.8-1.7); Protein, Total 5.6 g/dL (6.1-8.1)
--- NOTE | 2020-12-07 14:47 | PCPTNOTE ---
Attempted to see patient for physical therapy however patient was out of room for testing.
[2020-12-07 16:33] LABS: Creatine Kinase 150 U/L (55-170)
[2020-12-07] MEDS: FAMOTIDINE 20 MG TABLET 40 MG PO (17:51)
[2020-12-07 18:45] LABS: Hepatitis B Surface Antigen Negative (Negative)
[2020-12-07 18:50] LABS: HAV RESULT Negative (Negative); Hepatitis B Core IgM Result Negative (Negative)
[2020-12-07 19:02] LABS: Hepatitis C Virus Antibody Negative (Negative)
[2020-12-07] MEDS: METOPROLOL TARTRATE 50 MG TAB 100 MG PO (21:36)
[2020-12-08] VITALS (28 sets, daily range): BP systolic 97–112; BP diastolic 60–70; PULSE 75–106; RESP 14–20; TEMP 36.2–36.9; O2SAT 94–100
[2020-12-08 00:54] LABS: Kappa\\Lambda Light Chains 0.54 (0.26-1.65); Lambda Light Chain 44.2 mg/L (5.7-26.3)
[2020-12-08] MEDS: IPRATROPIUM BR 0.02% INH SOLN 0.5 MG/2.5 ML VIAL INHALATION ×4 (02:37→20:47)
[2020-12-08 05:27] LABS: Basophils Percent Auto 0.2 % (0.2-1.2); Eosinophils Absolute Auto 0.1 K/mm3 (0-0.3); Eosinophils Percent Auto 0.8 % (0-4.4); Hematocrit 36.9 % (42.0-52.0); Hemoglobin 12.7 g/dL (14.0-18.0); Immature Granulocyte Absolute 0.16 K/mm3 (0.00-0.031); Immature Granulocyte Percent A 1.5 % (0-0.5); Lymphocytes Absolute Auto 2.08 K/mm3 (0.9-3.2); Lymphocytes Percent Auto 19.9 % (18.3-44.2); Mean Corpuscular HGB Conc 34.4 g/dl (32-36); Mean Corpuscular Hemoglobin 31.9 pg (26-34); Mean Corpuscular Volume 92.7 fl (80-100); Mean Platelet Volume 9.6 fl (7.4-10.4); Monocytes Absolute Auto 0.9 K/mm3 (0.1-0.6); Monocytes Percent Auto 8.8 % (2.6-8.5); Neutrophils Absolute Auto 7.2 K/mm3 (1.3-6.7); Neutrophils Percent Auto 68.8 % (45.5-73.1); Platelet Count Result 385 k/mm3 (150-375); Red Blood Count 3.98 M/mm3 (4.6-6.20); Red Cell Distribution Width 14.4 % (11.5-14.5); White Blood Count 10.5 K/mm3 (4.5-10.0)
[2020-12-08 07:14] LABS: Alanine Aminotransferase 114 U/L (4-50); Albumin Level 2.7 g/dL (3.5-5.1); Alkaline Phosphatase 123 U/L (38-126); Anion Gap 1 mmol/L (8-16); Aspartate Amino Transferase 113 U/L (17-59); Bilirubin,Total 0.7 mg/dL (0.2-1.3); Blood Urea Nitrogen 23 mg/dL (9-20); Carbon Dioxide 27 mmol/L (22-30); Chloride 100 mmol/L (98-107); Estimated CRCL calculation 77 ml/min; Estimated Glomerular Filt Rate > 60; Glucose 138 mg/dL (65-110); Potassium 3.8 mmol/L (3.4-5.0); Sodium 128 mmol/L (137-145)
[2020-12-08 07:30] LABS: CRP 13.8 mg/dL (<1.0)
[2020-12-08 07:50] LABS: Legionella pneumophila Ag Ur Not Detected (Not Detected)
--- NOTE | 2020-12-08 09:02 | P.PNNP_ITS ---
Progress Note: A&P Assessment and Plan (1) Hyponatremia: Code(s): E87.1 - Hypo-osmolality and hyponatremia Status: Acute Assessment and Plan: * improving but dropped by AM labs -- due to backing off on fluid restriction? * acute versus chronic versus acute on chronic??? 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 (2) Community acquired pneumonia: Code(s): J18.9 - Pneumonia, unspecified organism Status: Acute Assessment and Plan: * as noted by imaging on admission * follow up on cultures (noted 1/2 bottles with Staph) * on antibiotics * off supplemental oxygen (3) Acute respiratory failure with hypoxia: Code(s): J96.01 - Acute respiratory failure with hypoxia Status: Acute Assessment and Plan: * complicated by #2 and #4 * continue current interventions * Pulmonary following with recommendations noted * follow respiratory status (4) COPD (chronic obstructive pulmonary disease): Code(s): J44.9 - Chronic obstructive pulmonary disease, unspecified Status: Acute Assessment and Plan: * known diagnosis * continue nebulizer treatments and steroids * Pulmonary following * continus supportive therapy Will continue to follow. Subjective Date/time seen: 12/08/20 09:02 Breathing and respiratory status continues to improve if not back to baseline at this time; no issues/events overnight or earlier this AM; no apparent distress voied at this time. Exam Narrative: General: WD/WN male in NAD Heart: normal S1 and S2; no rub Lungs: coarse breath sounds Abdomen: soft, nontender, nondistended, positive bowel sounds Extremities: no cyanosis or clubbing; no edema Skin: no rash or nodules Objective Data Vital Signs Vital Signs: Vital Signs Temp Pulse Resp BP Pulse Ox 12/08/20 06:00 86 12/08/20 04:00 36.6 C 78 20 112/70 96 12/08/20 02:44 82 16 12/08/20 02:43 95 12/08/20 02:37 83 16 12/08/20 02:00 82 12/08/20 00:00 82 12/07/20 23:19 36.6 C 86 20 112/48 L 97 12/07/20 22:00 86 12/07/20 21:36 102 H 12/07/20 20:56 97 12/07/20 20:53 101 H 20 12/07/20 20:48 109 H 24 H 92 12/07/20 20:00 36.6 C 95 20 107/70 97 12/07/20 18:00 102 H 12/07/20 16:27 35.9 C L 92 23 H 106/53 L 96 12/07/20 16:00 100 12/07/20 14:15 87 26 H 12/07/20 14:08 91 24 H 12/07/20 14:00 98 12/07/20 12:32 37.2 C 90 20 109/67 96 12/07/20 12:00 97 12/07/20 10:00 120 H 12/07/20 09:06 133 H 28 H Intake/Output Intake/Output:
--- NOTE | 2020-12-08 09:02 | PM.PNNEP ---
Progress Note: A&P Assessment and Plan (1) Hyponatremia: Code(s): E87.1 - Hypo-osmolality and hyponatremia Status: Acute Assessment and Plan: improving but dropped by AM labs -- due to backing off on fluid restriction? acute versus chronic versus acute on chronic??? 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 (2) Community acquired pneumonia: Code(s): J18.9 - Pneumonia, unspecified organism Status: Acute Assessment and Plan: as noted by imaging on admission follow up on cultures (noted 1/2 bottles with Staph) on antibiotics off supplemental oxygen (3) Acute respiratory failure with hypoxia: Code(s): J96.01 - Acute respiratory failure with hypoxia Status: Acute Assessment and Plan: complicated by #2 and #4 continue current interventions Pulmonary following with recommendations noted follow respiratory status (4) COPD (chronic obstructive pulmonary disease): Code(s): J44.9 - Chronic obstructive pulmonary disease, unspecified Status: Acute Assessment and Plan: known diagnosis continue nebulizer treatments and steroids Pulmonary following continus supportive therapy Will continue to follow. Subjective Date/time seen: 12/08/20 09:02 Breathing and respiratory status continues to improve if not back to baseline at this time; no issues/events overnight or earlier this AM; no apparent distress voied at this time. Exam Narrative: General: WD/WN male in NAD Heart: normal S1 and S2; no rub Lungs: coarse breath sounds Abdomen: soft, nontender, nondistended, positive bowel sounds Extremities: no cyanosis or clubbing; no edema Skin: no rash or nodules Objective Data Vital Signs Vital Signs: Vital Signs Temp Pulse Resp BP Pulse Ox 12/08/20 06:00 86 12/08/20 04:00 36.6 C 78 20 112/70 96 12/08/20 02:44 82 16 12/08/20 02:43 95 12/08/20 02:37 83 16 12/08/20 02:00 82 12/08/20 00:00 82 12/07/20 23:19 36.6 C 86 20 112/48 L 97 12/07/20 22:00 86 12/07/20 21:36 102 H 12/07/20 20:56 97 12/07/20 20:53 101 H 20 12/07/20 20:48 109 H 24 H 92 12/07/20 20:00 36.6 C 95 20 107/70 97 12/07/20 18:00 102 H 12/07/20 16:27 35.9 C L 92 23 H 106/53 L 96 12/07/20 16:00 100 12/07/20 14:15 87 26 H 12/07/20 14:08 91 24 H 12/07/20 14:00 98 12/07/20 12:32 37.2 C 90 20 109/67 96 12/07/20 12:00 97 12/07/20 10:00 120 H 12/07/20 09:06 133 H 28 H Intake/Output Intake/Output: Intake & Output 12/05/20 12/06/20 12/07/20 12/08/20 23:59 23:59 23:59 23:59 Intake Total 2355 857 3467 800 Output Total 900 1200 1750 Balance 290 -360 1220 -950 Meds/Results Medications: Active Medications Generic Name Dose Route Start Last Admin Trade Name Dotty PRN Reason Stop Dose Admin Hydrocodone Bitart/Acetaminophen 1 tab 12/04/20 13:23 12/06/20 18:25 Hydrocodone/Acetaminophen (*Crx) 5-325 Mg Tablet PO 1 tab Q6H PRN Administration Pain Rated 6 or Greater Aspirin 325 mg 12/07/20 08:00 12/07/20 08:54 Aspirin 325 Mg Tablet PO 325 mg DAILY@0800 ORQUIDEA Administration Enoxaparin Sodium 40 mg 12/04/20 09:00 12/07/20 08:54 Enoxaparin 40 Mg/0.4 Ml Syringe SUB-Q 40 mg
[2020-12-08] MEDS: guaiFENesin 12 HR 600 MG TABCR 1200 MG PO ×2 (09:29→20:37)
[2020-12-08] MEDS: METOPROLOL TARTRATE 50 MG TAB 100 MG PO ×2 (09:30→20:37)
[2020-12-08] MEDS: ASPIRIN 325 MG TABLET PO (09:31)
[2020-12-08] MEDS: LORATADINE 10 MG TABLET PO (09:31)
[2020-12-08] MEDS: ESCITALOPRAM OXALATE 10 MG TABLET PO (09:31)
[2020-12-08] MEDS: MONTELUKAST SODIUM 10 MG TABLET PO (09:31)
[2020-12-08] MEDS: levoFLOXacin 750 MG TABLET PO (09:32)
[2020-12-08] MEDS: FLUTICASONE PROPIONATE 0.05% NA SPR 16 GM BTL (*BKC) 1 SPRAY NASAL ×2 (09:32→20:37)
[2020-12-08] MEDS: ENOXAPARIN 40 MG/0.4 ML SYRINGE SUB-Q (09:32)
--- NOTE | 2020-12-08 10:29 | PCPTNOTE ---
Patient reports he does not want to do therapy at this time and would like us to come back later today. Patient reports he is in no pain.
--- NOTE | 2020-12-08 10:56 | PM.PNPUL ---
Progress Note: A&P Assessment and Plan (1) Community acquired pneumonia: Code(s): J18.9 - Pneumonia, unspecified organism Status: Acute Assessment and Plan: 12/05 Patient presents with 1 week history of fever, dry cough, shortness of breath and weakness. he is also hyponatremic. Patient has a dense right upper lobe infiltrate and left upper lobe and lingula mild infiltrates. COVID rapid test negative. CTA without PE. BNP 107. Patient feels somewhat better on ceftriaxone and azithromycin. Blood cultures are negative. Agree with this antibiotic regimen for CAP. patient was also started on IV Flagyl for pneumonia and I will discontinue this at this time. Urine Legionella antigen, urine pneumococcal antigen and mycoplasma IgG and IgM are pending. 12/06 patient states he clinically has improved there are no crackles in the right upper lobe today. Would continue ceftriaxone, azithromycin, and vancomycin for now. Follow identification of the blood cultures. I will repeat a chest x-ray in the morning to assess his right upper lobe infiltrate. COVID RT PCR test is negative. When ready for discharge would give him Levaquin 750 mg p.o. q.day to finish a total of 10 days antibiotics. 12/07 Patient states that his status is about the same as yesterday. States he is 60% back to normal. Currently on room air with sats of 92%. He states his cough is better and has no phlegm. Change to Levaquin p.o. and he is on vancomycin for Staph aureus in his blood. WBC 11.1. Repeat blood cultures are negative. CXR pending. Cardiology and hospitalist managing Afib. If chest x-ray is stable or improved and repeat blood cultures are negative he is stable for discharge from pulmonary perspective On his previous home medical regimen except for the discontinuation of theophylline (new arrythmia) and Levaquin 750 mg p.o. q.day for total of 10 days of antibiotics, last dose on 12/13/20. 12/08 Patient states he is back to his baseline. Currently on Levaquin 750 mg p.o. q.day. He is afebrile with a white blood cell count of 10.5. Repeat blood cultures are without growth. Chest x-ray shows stable right upper lobe infiltrate without progression. Id has been consult regarding antibiotics. (2) Asthma-COPD overlap syndrome: Code(s): J44.9 - Chronic obstructive pulmonary disease, unspecified Status: Acute Assessment and Plan: Patient tells me he is asthma since childhood and has been on inhalers all his life. He also tells me he has COPD but has minimal tobacco use and no paraseptal or centrilobular emphysema on a CT scan of the chest. He is followed at [facility] in his recently had a workup at [facility] a month ago in which they did multiple tests. I do not have any of these records currently. Patient followed at [facility] on this home regimen. Symbicort 80/4.5 at 2 puffs BID spireva 18 mcg at 1 inhalation Q day Rescue albuterol 2 puffs Q 4 PRN SOB or wheezing montelukast 10 mg PO Q day Fluticasone nasal spray at 1 puff Q day Theophylline ER 300 PO Q 12 RA rest and ambulation and 3 L at night. 12/05 Today patient has no wheezes on exam and I will change him to prednisone 30 mg p.o. q.day which he tells me is his home dose. I will continue ipratropium nebulizer 0.5 mg Q 6 hours, I will change his albuterol nebulizers to levalbuterol as he has AFib with RVR at a dose of 1.25 mg Q 6 hours. Will not restart theophylline as AFIB. I will continue his montelukast 10 mg p.o. q.day, fluticasone nasal spray and Claritin 10 mg q.day for his allergies and sinus congestion. Patient states he wears 3 L nasal cannula at night and none during the day. Currently his saturations are 94% on room air and I will order 3 L nasal cannula when he sleeps. 12/06 patient has no wheezes on exam. Patient had some confusion last night and at this time I will discontinue his prednisone. Continue levalbuterol and ipratropium nebulizers. He [place]
--- NOTE | 2020-12-08 13:04 | PM.PNCARD ---
Progress Note: A&P Assessment and Plan (1) Atrial fibrillation with rapid ventricular response: Code(s): I48.91 - Unspecified atrial fibrillation Status: Acute Assessment and Plan: New onset since hospital admission. Was initially in sinus tachycardia but developed atrial fibrillation with rapid ventricular response shortly after admission. Atrial fibrillation likely 2/2 acute illness with pneumonia, bacteremia. Heart rate better controlled on Metoprolol 100 mg b.i.d., still with occ RVR jaciel with activity. Up titrate as tolerated and heart rate requires. Rate control strategy for now. Not a candidate for A/C at this time due to confusion and high risk for falls. Will re-evaluate appropriateness/safety of systemic anticoagulation when patient's mental status improves Continue ASA 325mg for now. K+ stable, 3.8 monitor electrolytes closely. Echocardiogram EF >70%. No significant valve pathology. There is a mild-moderate pericardial effusion with fibrinous material within the pericardial space. No evidence for tamponade. (2) Community acquired pneumonia: Code(s): J18.9 - Pneumonia, unspecified organism Status: Acute Assessment and Plan: Being treated with levaquin. Management per primary service (3) Hyponatremia: Code(s): E87.1 - Hypo-osmolality and hyponatremia Status: Acute Assessment and Plan: Sodium 118 on admission much improved currently on 1400 cc fluid restriction daily. This is being corrected, Na 128 today. Appreciate nephrology input. (4) COPD (chronic obstructive pulmonary disease): Code(s): J44.9 - Chronic obstructive pulmonary disease, unspecified Status: Acute Assessment and Plan: Management per primary service (5) Pericardial effusion: Code(s): I31.3 - Pericardial effusion (noninflammatory) Status: Acute Assessment and Plan: See above. Mild to moderate no tamponade. Incidental notation. Subjective Date/time seen: Date of service: 12/08/20 13:04 Follow-up for atrial fibrillation with rapid ventricular response Patient feels okay today. Denies palpitations, shortness of breath or chest pain. Feels tired. States he is still thirsty but a little better. Denies significant dizziness. Heart rate much better controlled overall but remains in atrial fibrillation heart rate 80s to 100s. Review of Systems Review of Systems: All systems reviewed & are unremarkable except as noted in HPI and below ROS unobtainable: Yes unobtainable due to mental status Constitutional: Constitutional: Reports as per HPI and Reports no additional constitutional complaints Eyes: Eyes: Reports as per HPI and Reports no additional eye complaints ENT: Reports system reviewed and no additional complaints, except as documented and Reports as per HPI Cardiovascular: Cardiovascular: Reports as per HPI and Reports no additional cardiovascular complaints Respiratory: Respiratory: Reports as per HPI and Reports no additional respiratory complaints Gastrointestinal: Gastrointestinal: Reports as per HPI and Reports no additional gastrointestinal complaints Genitourinary: Genitourinary: Reports no additional male genitourinary complaints and Reports as per HPI Musculoskeletal: Musculoskeletal: Reports no additional musculoskeletal complaints and Reports as per HPI Integumentary/Breasts: Skin/Breast: Reports system reviewed and no additional complaints, except as docu and Reports as per HPI Neurologic: Reports system reviewed and no additional complaints, except as documented and Reports as per HPI Psychiatric: Psychiatric: Reports no additional psychiatric complaints and Reports as per HPI Endocrine: Endocrine: Reports no additional endocrine complaints and Reports as per HPI Hematologic/Lymphatic: Hematologic/Lymphatic: Reports no additional hematologic/lymphatic complaints and Reports as per HPI Allergic/Immunologic: Allergic/Immu
--- NOTE | 2020-12-08 14:19 | WPDINFPN2 ---
Progress Note: A&P Assessment and Plan (1) Community acquired pneumonia: Code(s): J18.9 - Pneumonia, unspecified organism Status: Acute Assessment and Plan: 1. MAKENZIE bacteremia with infection, lung source 2. Mixed COPD REC Ctx through 12/31 to complete 4 weeks of therapy. Ok PICC and discharge planning Subjective Date/time seen: 12/08/20 14:19 Objective Data Vital Signs Vital Signs: Vital Signs - 24 hr 12/07/20 16:00 12/07/20 16:27 12/07/20 18:00 Temperature 35.9 C L Pulse Rate 100 92 102 H Respiratory Rate 23 H Blood Pressure 106/53 L Pulse Oximetry 96 12/07/20 20:00 12/07/20 20:48 12/07/20 20:53 Temperature 36.6 C Pulse Rate 95 109 H 101 H Respiratory Rate 20 24 H 20 Blood Pressure 107/70 Pulse Oximetry 97 92 12/07/20 20:56 12/07/20 21:36 12/07/20 22:00 Temperature Pulse Rate 102 H 86 Respiratory Rate Blood Pressure Pulse Oximetry 97 12/07/20 23:19 12/08/20 00:00 12/08/20 02:00 Temperature 36.6 C Pulse Rate 86 82 82 Respiratory Rate 20 Blood Pressure 112/48 L Pulse Oximetry 97 12/08/20 02:37 12/08/20 02:43 12/08/20 02:44 Temperature Pulse Rate 83 82 Respiratory Rate 16 16 Blood Pressure Pulse Oximetry 95 12/08/20 04:00 12/08/20 06:00 12/08/20 08:00 Temperature 36.6 C 36.8 C Pulse Rate 78 86 102 H Respiratory Rate 20 18 Blood Pressure 112/70 102/63 Pulse Oximetry 96 99 12/08/20 09:30 12/08/20 09:52 12/08/20 09:56 Temperature Pulse Rate 106 H 97 Respiratory Rate 18 Blood Pressure Pulse Oximetry 94 12/08/20 10:00 12/08/20 10:01 12/08/20 12:00 Temperature 36.9 C Pulse Rate 85 81 101 H Respiratory Rate 18 18 Blood Pressure 104/69 Pulse Oximetry 94 12/08/20 14:00 12/08/20 14:08 12/08/20 14:09 Temperature Pulse Rate 83 87 Respiratory Rate 18 Blood Pressure Pulse Oximetry 94 12/08/20 14:15 Temperature Pulse Rate 75 Respiratory Rate 18 Blood Pressure Pulse Oximetry Intake/Output Intake/Output: Intake & Output 12/05/20 12/06/20 12/07/20 12/08/20 23:59 23:59 23:59 23:59 Intake Total 8889 486 1739 920 Output Total 900 1200 1750 Balance 290 -360 1220 -830 Meds/Results Medications: Active Medications Generic Name Dose Route Start Last Admin Trade Name Freq PRN Reason Stop Dose Admin Hydrocodone Bitart/Acetaminophen 1 tab 12/04/20 13:23 12/06/20 18:25 Hydrocodone/Acetaminophen (*Crx) 5-325 Mg Tablet PO 1 tab Q6H PRN Administration Pain Rated 6 or Greater Aspirin 325 mg 12/07/20 08:00 12/08/20 09:31 Aspirin 325 Mg Tablet PO 325 mg DAILY@0800 ORQUIDEA Administration Enoxaparin Sodium 40 mg 12/04/20 09:00 12/08/20 09:32 Enoxaparin 40 Mg/0.4 Ml Syringe SUB-Q 40 mg DAILY ORQUIDEA Administration Escitalopram Oxalate 10 mg 12/07/20 09:00 12/08/20 09:31 Escitalopram Oxalate 10 Mg Tablet PO 10 mg DAILY ORQUIDEA Administration Famotidine 40 mg 12/04/20 18:00 12/07/20 17:51 Famotidine 20 Mg Tablet PO 40 mg QPM OQRUIDEA Administration Fluticasone Propionate 1 spray 12/04/20 13:20 12/08/20 09:32 Fluticasone Propionate 0.05% Na Spr 16 Gm Btl (*Bkc) NASAL 1 spray Q12HR ORQUIDEA Administration Guaifenesin 1,200 mg 12/04/20 13:20 12/08/20 09:29 Guaifenesin 12 Hr 600 Mg Tabcr PO 1,200 mg Q12HR ORQUIDEA Administration Vancomycin HCl 1,500 mg in 500 mls @ 333.333 mls/hr 12/08/20 14:00 Vancomycin 1,500 Mg/D5w 500 Ml IVPB Q12H ORQUIDEA Ipratropium [place] 0.5 mg 12/05/20 14:00 12/08/20 14:08 Ipratropium Br 0.02% Inh Soln 0.5 Mg/2.5 Ml Vial INHALATION 0.5 mg Q6HRT ORQUIDEA Administration Levalbuterol HCl 1.25 mg 12/05/20 14:00 12/08/20 14:08 Levalbuterol Neb 1.25 Mg/0.5 Ml INHALATION 1.25 mg Q6HRT ORQUIDEA Administration Levalbuterol HCl 1.25 mg 12/07/20 08:49 Levalbuterol Neb 1.25 Mg/0.5 Ml INHALATION Q6HRT PRN Shortness Of Breath Or Wheezing Levofloxacin 750 mg 11/08
--- NOTE | 2020-12-08 15:14 | CONS_ITS ---
DATE OF CONSULTATION: 12/08/2020 REASON FOR CONSULTATION: Staph aureus bacteremia. HISTORY OF PRESENT ILLNESS: 65-year-old male with mixed COPD. He has been feeling ill for about 1 month and presented to the hospital on December 04 due to worsening symptoms. These included chest pain, dyspnea despite home O2, and fever to unknown height. No rigors or sweats. He has had no previous bloodstream infection. He had been given prednisone 30 mg. He took 2 doses in the 2 days prior to admission, as treatment for his symptoms, but he then presented here. He has been on no immunosuppressants while here and none other at home. There have been no other systemic antimicrobials or immunosuppressants in recent months. Over here, the patient has received levofloxacin and vancomycin at various times. The patient feels improved with no further shortness of breath. He has had no chest pain. No spinal pain. No scapular pain. He has had no diarrhea, nausea, vomiting, skin rash, skin ulcers or pustules on the skin. ALLERGIES: NONE KNOWN. HABITS: Ex-smoker. No alcohol. PRESENT MEDICATIONS: See above. FAMILY HISTORY: Asthma, colon cancer, diabetes, seizure disorder, hypertension. PAST MEDICAL HISTORY: As above. No other chronic illnesses. He has no prosthetic devices in place. SOCIAL HISTORY: He has a significant other, also a daughter, both of whom have plans to help him out at home once he returns. No jobs outside the home. REVIEW OF SYSTEMS: 14-point review otherwise negative. PHYSICAL EXAMINATION: GENERAL: This is a middle-aged male who appears his actual age. No acute distress. VITAL SIGNS: 75, 18, 104/69. The patient on arrival had a temperature 38.3 and later that day up to 39.4. He has since been afebrile. SKIN: Multiple ecchymoses, particular on the right side consistent with phlebotomy and IV sticks. No pustules. NODES: No axillary or cervical adenopathy. EENT: The conjunctivae are normal. Pupils equal, round, and reactive to light. The oropharynx, oral mucosa normal. Teeth in good repair. NECK: No masses, thyromegaly, or meningismus. LUNGS: Diminished breath sounds, otherwise clear to auscultation and percussion. No egophony, no fremitus changes. CHEST: Equal expansion. Normal AP diameter. No indwelling vascular devices. CARDIAC: Regular rate and rhythm. No murmur or gallop. He has 2+ pulses. ABDOMEN: Nontender, soft. No organomegaly. No masses. EXTREMITIES: 1+ nonpitting edema at the ankles. No clubbing. No cyanosis. NEUROLOGIC: Awake, alert, oriented, appropriate. LABORATORY DATA: Blood cultures from arrival 1 out of 2 sets, susceptible Staph aureus. Urine culture, no growth. Repeat blood cultures, 2 days later, no growth after 2 days incubation. White blood cell count 15.9 on admission, now down to 10.5, hemoglobin 12.7, and platelets are 385. Differential normal. His blood gases 7.47, 35, 74, 25, 94%. He has hyponatremia on chemistries, BUN 23, creatinine 1.0, glucose was 89, now 138. His liver function tests show improvement down to 113, 114. Transaminases, alkaline phosphatase, now normal. CRP 13.8. His urinalysis, 3+ blood and 3 to 5 red cells, no evidence of infection. RADIOLOGY: Chest x-ray and chest CT showed an area of consolidation in the right upper lobe as well as elsewhere on the CT scan. No pulmonary embolism seen. Mild pericardial effusion. Repeat chest x-ray performed yesterday without change. ASSESSMENT: 1. Staph aureus bacteremia due to the same organism and community-acquired pneumonia. Other causes of his bacteremia are unlikely including primary vascular, , skin, bone and joint. Other causes of his fever are also unlikely including other respiratory pathogens or primary infectious hepati
[2020-12-08] MEDS: FAMOTIDINE 20 MG TABLET 40 MG PO (17:45)
--- NOTE | 2020-12-08 19:50 | PM.IMPN ---
Progress Note: A&P Additional Plan (1) Severe sepsis: Code(s): A41.9 - Sepsis, unspecified organism; R65.20 - Severe sepsis without septic shock Status: Acute Assessment and Plan: Patient admitted with fevers, tachycardia, hypoxia, elevated lactic acid initially Lactic acidosis resolved with IV fluid resuscitation IV azithromycin and Rocephin, with later transition to levofloxacin daily to finish a 10 day course (last dose 12/13). Urine culture negative Blood cultures showing 1/2 with Staph aureus-MSSA. Added Vancomycin and cultures repeated 12/06 negative so far. Per ID will receive ceftriaxone -12/31. (2) Community acquired pneumonia: Code(s): J18.9 - Pneumonia, unspecified organism Status: Acute Assessment and Plan: Transition from azithromycin Rocephin to oral Levaquin finish a 10 day course, last day 12/13. now Rocephin resumed till 12/31. Multifocal pneumonia predominantly right upper lobe community-acquired pneumonia. COVID negative With hyponatremia and diarrhea possibly Legionnaire's disease. Atypical serologies and urinary antigens pending (3) Acute respiratory failure with hypoxia: Code(s): J96.01 - Acute respiratory failure with hypoxia Status: Acute Assessment and Plan: Community-acquired pneumonia verses Aspiration pneumonia versus COVID or viral pneumonia versus Atypical pneumonia such as legionnaires Albuterol and ipratropium inhaler treatment. D-dimer is elevated at 14.5. CT angio scan 12/04: Multifocal bilateral pulmonary infiltrates, with particularly prominent consolidation in the right upper lobe Negative troponin x3, ordered an echo to be done. Appreciate tree cutter consultation and treatment Now on room air saturating in the 90% (4) Acute hyponatremia: Code(s): E87.1 - Hypo-osmolality and hyponatremia Status: Acute Assessment and Plan: Significantly hyponatremic likely due to his attempt to hydrate himself well not really eating, and this could also explain his weakness. Also lung pathology and being on Lexapro. Severe hyponatremia sodium level of 118 on admission. Received normal saline and hypertonic saline x 1: 12/04. Started on fluid restriction. Appreciate alarm installation technician consultation and treatment Sodium now much improved (5) COPD (chronic obstructive pulmonary disease): Code(s): J44.9 - Chronic obstructive pulmonary disease, unspecified Status: Acute Assessment and Plan: Inhalers, Montelukast, guaifenesin PRN. Appreciate Pulmonary. He sees Awake Overnight Monitor Sharlene Azar at [facility]. in [place], [place]. (6) Atrial fibrillation with rapid ventricular response: Code(s): I48.91 - Unspecified atrial fibrillation Status: Acute Assessment and Plan: This has been intermittent and more pronounced when he is agitated. This is new for him that we know. He was initially started on diltiazem infusion, however he removed his IV and we were unable to give him further. Echocardiogram 12/05 did show [id number] pericardial effusion. This is of unclear etiology. Left and right ventricular function noted to be normal. PEr cardiology continue metoprolol 100 mg PO BId and titrate as tolerated. Currently anticoagulation is contraindicated. (7) Elevated liver enzymes: Code(s): R74.8 - Abnormal levels of other serum enzymes Status: Acute Assessment and Plan: Unclear etiology. Monitor LFTs. (8) Acute encephalopathy: Code(s): G93.40 - Encephalopathy, unspecified Status: Acute Assessment and Plan: Metabolic versus toxic. This is now improved. Will have Seroquel available p.r.n. His significant other noted he does react to benzodiazepines and will avoid. Additional Plan DVT Prophylaxis: Lovenox Code status: Full code Subjective Date/time seen: 12/08/20 19:50 Background: Patient admitted for cough, fever, acute shortness of breath and diagnosed with atypical pneumonia in the s
[2020-12-08] MEDS: QUEtiapine FUMARATE 25 MG TABLET PO (20:37)
[2020-12-09] VITALS (16 sets, daily range): BP systolic 95–99; BP diastolic 42–59; PULSE 69–99; RESP 18–20; TEMP 35.9–36.4; O2SAT 94–97
[2020-12-09 05:21] LABS: Albumin Level 3.1 g/dL (3.5-5.1); Anion Gap 5 mmol/L (8-16); Blood Urea Nitrogen 21 mg/dL (9-20); Calcium 8.4 mg/dL (8.4-10.2); Carbon Dioxide 24 mmol/L (22-30); Chloride 102 mmol/L (98-107); Estimated CRCL calculation 95 ml/min; Estimated Glomerular Filt Rate > 60; Glucose 108 mg/dL (65-110); Phosphorus 3.3 mg/dL (2.5-4.5); Potassium 4.3 mmol/L (3.4-5.0); Sodium 131 mmol/L (137-145)
[2020-12-09] MEDS: LIDOCAINE HCL 1% PF INJ 5 ML VIAL INFILTRATE (08:45)
[2020-12-09] MEDS: IPRATROPIUM BR 0.02% INH SOLN 0.5 MG/2.5 ML VIAL INHALATION ×2 (09:30→14:05)
[2020-12-09] MEDS: MONTELUKAST SODIUM 10 MG TABLET PO (10:23)
[2020-12-09] MEDS: ASPIRIN 325 MG TABLET PO (10:23)
[2020-12-09] MEDS: METOPROLOL TARTRATE 50 MG TAB 100 MG PO (10:24)
[2020-12-09] MEDS: FLUTICASONE PROPIONATE 0.05% NA SPR 16 GM BTL (*BKC) 1 SPRAY NASAL (10:24)
[2020-12-09] MEDS: ESCITALOPRAM OXALATE 10 MG TABLET PO (10:24)
[2020-12-09] MEDS: LORATADINE 10 MG TABLET PO (10:24)
[2020-12-09] MEDS: guaiFENesin 12 HR 600 MG TABCR 1200 MG PO (10:24)
[2020-12-09] MEDS: ENOXAPARIN 40 MG/0.4 ML SYRINGE SUB-Q (10:24)
--- NOTE | 2020-12-09 11:16 | PCDIET ---
Weekly nutritional screen. Patient is tolerating current diet with adequate intake. Denies needs or concerns and feels the food has been pretty good. No weight loss reported. No nutritional needs at this time.
--- NOTE | 2020-12-09 12:42 | PM.PNCARD ---
Progress Note: A&P Assessment and Plan (1) Atrial fibrillation with rapid ventricular response: Code(s): I48.91 - Unspecified atrial fibrillation Status: Acute Assessment and Plan: New onset since hospital admission. Was initially in sinus tachycardia but developed atrial fibrillation with rapid ventricular response shortly after admission. Atrial fibrillation likely 2/2 acute illness with pneumonia, bacteremia. Heart rate better controlled on Metoprolol 100 mg b.i.d., still with occ RVR jaciel with activity. Continue current therapy for the time being. Rate control strategy for now. Not a candidate for A/C at this time due to confusion and high risk for falls. Will re-evaluate appropriateness/safety of systemic anticoagulation when patient's mental status improves Continue ASA 325mg for now. K+ stable. Follow-up as an outpatient within [address] Guevara. Disposition per hospitalist service. Will sign off. Echocardiogram EF >70%. No significant valve pathology. There is a mild-moderate pericardial effusion with fibrinous material within the pericardial space. No evidence for tamponade. (2) Community acquired pneumonia: Code(s): J18.9 - Pneumonia, unspecified organism Status: Acute Assessment and Plan: Being treated with levaquin. Management per primary service (3) Hyponatremia: Code(s): E87.1 - Hypo-osmolality and hyponatremia Status: Acute Assessment and Plan: Sodium 118 on admission much improved currently on 1400 cc fluid restriction daily. This is being corrected, Na 128 today. Appreciate nephrology input. (4) COPD (chronic obstructive pulmonary disease): Code(s): J44.9 - Chronic obstructive pulmonary disease, unspecified Status: Acute Assessment and Plan: Management per primary service (5) Pericardial effusion: Code(s): I31.3 - Pericardial effusion (noninflammatory) Status: Acute Assessment and Plan: See above. Mild to moderate no tamponade. Incidental notation. Additional Plan Attending addendum: I have personally seen and examined this patient at bedside. Agree with the above documentation and plan of care as outlined. We were asked to see this patient for atrial fibrillation with rapid ventricular response. He was originally admitted 12/04/2020 with nonspecific complaints of not feeling well. He was noted to be tachycardic, febrile and short of breath with right upper lobe infiltrates consistent with pneumonia for which he has been placed on antibiotics. He was ruled out for PE with negative CT chest PE protocol. COVID swab negative. He was severely hyponatremic at 1:18 a.m. with positive Gram-positive cocci /2 positive 12/04/2020. Earlier today, patient was erratic, noncooperative with medical therapy not taking medications, pulled out his IV for which he was started on Cardizem infusion to control his atrial fibrillation. Patient was threatening to leave against medical advice but is confused. Patient eventually agreed to oral metoprolol and heart rate has been better controlled generally in the 90s to low 100s. Currently has no other specific complaints. Shortness of breath improved no chest pain or palpitations. Exam Alert, confused not answering questions appropriately no apparent distress Lungs clear to auscultation no rales or wheezes Cardiac exam irregular irregular rate rhythm S1-S2 tachycardic Abdomen soft nontender positive bowel sounds Extremities no significant edema or cyanosis. Skin warm and dry Musculoskeletal muscle strength and tone intact Impression/plan of care: Atrial fibrillation with rapid ventricular response, heart rate control strategy at this time. Patient tolerating. Due to confusion and associated fall risk as well as noncompliance earlier he is not likely a good candidate for systemic anticoagulation at this time. Will need to reassess candidacy and safety when mental st
--- NOTE | 2020-12-09 13:46 | PCPTNOTE ---
Patient declined to do therapy at this time due to going home today and wanting to save his energy.
[2020-12-09] MEDS: CENTRAL LINE FLUSH 10 ML IV PUSH (14:18)
--- NOTE | 2020-12-09 15:07 | PM.DS ---
DS: Admitting Diagnosis Admitting Diagnosis Community acquired pneumonia DS: Discharge Diagnosis Discharge Diagnosis (1) Community acquired pneumonia: Code(s): J18.9 - Pneumonia, unspecified organism Status: Acute Assessment and Plan: Patient was initially treated with azithromycin and Rocephin then switched to oral Levaquin finish a 10 day course, last day 12/13, this was discussed with Pulmonary. He was found to grow MAKENZIE on blood cultures from12/04. Plan to complete IV rocephin on 12/31. Multifocal pneumonia predominantly right upper lobe community-acquired pneumonia. COVID negative With hyponatremia and diarrhea possibly Legionnaire's disease. Atypical serologies and urinary antigens negative except for Mycoplasma 1.22. (2) Acute respiratory failure with hypoxia: Code(s): J96.01 - Acute respiratory failure with hypoxia Status: Acute Assessment and Plan: Community-acquired pneumonia verses Aspiration pneumonia versus COVID or viral pneumonia versus Atypical pneumonia such as legionnaires. Likley Mycoplasma/MAKENZIE pneumonia Albuterol and ipratropium inhaler treatment. D-dimer is elevated at 14.5. CT angio scan 12/04: Multifocal bilateral pulmonary infiltrates, with particularly prominent consolidation in the right upper lobe Negative troponin x3, Management as above.% (3) COPD (chronic obstructive pulmonary disease): Code(s): J44.9 - Chronic obstructive pulmonary disease, unspecified Status: Acute Assessment and Plan: Inhalers, Montelukast, guaifenesin PRN. (4) Acute hyponatremia: Code(s): E87.1 - Hypo-osmolality and hyponatremia Status: Acute Assessment and Plan: Significantly hyponatremic likely due to his attempt to hydrate himself well not really eating, and this could also explain his weakness. Also lung pathology and being on Lexapro. Severe hyponatremia sodium level of 118 on admission. Received normal saline and hypertonic saline x 1: 12/04. Started on fluid restriction. Sodium improved to 131. Monitro serum sodium as an outpatient. (5) Severe sepsis: Code(s): A41.9 - Sepsis, unspecified organism; R65.20 - Severe sepsis without septic shock Status: Acute Assessment and Plan: Fevers, tachycardia, hypoxia, elevated lactic acid initially Lactic acidosis resolved with IV fluid resuscitation IV azithromycin and Rocephin, given now he is on room air and stable, transition to levofloxacin daily to finish a 10 day course (last dose 12/13). Urine culture negative Blood cultures showing 1/2 with Staph aureus-MSSA. Rocephin until 12/31 per ID recommendations. (6) Obesity, unspecified: Onset Date: 11/28/15 Code(s): E66.9 - Obesity, unspecified Status: Acute (7) Acute encephalopathy: Code(s): G93.40 - Encephalopathy, unspecified Status: Acute Assessment and Plan: Metabolic versus toxic. This is now improved. Will have Seroquel available p.r.n. His significant other noted he does react to benzodiazepines and we have avoided it. (8) Atrial fibrillation with rapid ventricular response: Code(s): I48.91 - Unspecified atrial fibrillation Status: Acute Assessment and Plan: This has been intermittent and more pronounced when he is agitated. He was initially started on diltiazem infusion, however he removed his IV and we were unable to give him further. Echocardiogram 12/05 did show [id number] pericardial effusion. Left and right ventricular function noted to be normal. Per Cardiology, we initiated metoprolol 25 mg b.i.d., now increased to 100 mg BID per cardiology. (9) Pericardial effusion: Code(s): I31.3 - Pericardial effusion (noninflammatory) Status: Acute (10) Elevated liver enzymes: Code(s): R74.8 - Abnormal levels of other serum enzymes Status: Acute Assessment and Plan: Unclear etiology. Will check hepatitis panel. Check CK level. Check
[2020-12-13 20:50] LABS: Creatinine, Random Urine 135 mg/dL (20-320); Total Protein/Creatinine Ratio 2111 mg/g creat (22-128)
== END 2020-12-09 16:15 | disposition home or self-care (01) | DRG 871 ==
LOC: ANHED 03:54 → ANHIMU 08:13
PROVIDERS: Internal Medicine Nephrology; Nurse Practitioner; Admitting Provider Internal Medicine; Emergency Provider Emergency Medicine; PCP Internal Medicine Gastroenterology; Visit Provider Internal Medicine Nephrology
DX: A41.9 Sepsis, unspecified organism (principal); J18.9 Pneumonia, unspecified organism; J96.01 Acute respiratory failure with hypoxia; J44.0 Chronic obstructive pulmonary disease with (acute) lower respiratory infection; J44.1 Chronic obstructive pulmonary disease with (acute) exacerbation; E87.1 Hypo-osmolality and hyponatremia; J45.901 Unspecified asthma with (acute) exacerbation; G93.40 Encephalopathy, unspecified; I31.3 Pericardial effusion (noninflammatory); Z20.822 Contact with and (suspected) exposure to COVID-19; I48.91 Unspecified atrial fibrillation; R65.20 Severe sepsis without septic shock; R74.8 Abnormal levels of other serum enzymes; R79.89 Other specified abnormal findings of blood chemistry; E66.9 Obesity, unspecified; Z68.30 Body mass index [BMI] 30.0-30.9, adult; Z87.891 Personal history of nicotine dependence; Z79.899 Other long term (current) drug therapy
CPT/HCPCS: 36415; 36569; 36600; 70450; 71045; 71275; 76705; 80048; 80053; 80069; 80074; 80076; 81001; 82533; 82550; 82565; 82570; 82728; 82805; 83605; 83615; 83735; 83880; 83883; 83930; 83935; 84100; 84155; 84156; 84165; 84166; 84295; 84300; 84439; 84443; 84480; 84484; 84540; 85025; 85055; 85380; 85610; 85730; 86140; 86738; 87040; 87077; 87086; 87186; 87426; 87449; 87899; 93005; 93306; 94640; 96365; 96367; 96375; 97110; 97116; 97161; 97165; 97530; 97535; 99285; A9270; C1751; C9803; G0378; J0131; J0456; J0696; J1630; J1650; J2920; J3370; J7030; J7131; J7512; Q9967; U0003; U0005

== ENCOUNTER 2021-01-02 11:44 | Outpatient (RCR) | payer MEDICARE, SELFPAY ==
[2020-12-16 12:54] LABS: Hematocrit 36.3 % (42.0-52.0); Hemoglobin 11.9 g/dL (14.0-18.0); Mean Corpuscular HGB Conc 32.8 g/dl (32-36); Mean Corpuscular Hemoglobin 31.6 pg (26-34); Mean Corpuscular Volume 96.3 fl (80-100); Platelet Count Result 357 k/mm3 (150-375); Red Blood Count 3.77 M/mm3 (4.6-6.20); Red Cell Distribution Width 14.5 % (11.5-14.5); White Blood Count 9.4 K/mm3 (4.5-10.0)
[2020-12-16 13:17] LABS: Anion Gap 5 mmol/L (8-16); Blood Urea Nitrogen 20 mg/dL (9-20); CRP 5.6 mg/dL (<1.0); Calcium 9.4 mg/dL (8.4-10.2); Carbon Dioxide 29 mmol/L (22-30); Chloride 100 mmol/L (98-107); Estimated Glomerular Filt Rate > 60; Glucose 119 mg/dL (65-110); Potassium 4.5 mmol/L (3.4-5.0); Sodium 134 mmol/L (137-145)
[2020-12-23 12:29] LABS: Hematocrit 37.4 % (42.0-52.0); Hemoglobin 12.4 g/dL (14.0-18.0); Mean Corpuscular HGB Conc 33.2 g/dl (32-36); Mean Corpuscular Hemoglobin 31.8 pg (26-34); Mean Corpuscular Volume 95.9 fl (80-100); Mean Platelet Volume 8.9 fl (7.4-10.4); Platelet Count Result 322 k/mm3 (150-375); Red Cell Distribution Width 14.2 % (11.5-14.5); White Blood Count 7.1 K/mm3 (4.5-10.0)
[2020-12-23 12:49] LABS: Anion Gap 7 mmol/L (8-16); Blood Urea Nitrogen 16 mg/dL (9-20); Calcium 9.4 mg/dL (8.4-10.2); Carbon Dioxide 28 mmol/L (22-30); Chloride 104 mmol/L (98-107); Estimated Glomerular Filt Rate > 60; Glucose 99 mg/dL (65-110); Potassium 4.3 mmol/L (3.4-5.0); Sodium 139 mmol/L (137-145)
[2020-12-30 12:09] LABS: Hematocrit 37.6 % (42.0-52.0); Hemoglobin 12.6 g/dL (14.0-18.0); Mean Corpuscular HGB Conc 33.5 g/dl (32-36); Mean Corpuscular Hemoglobin 32.1 pg (26-34); Mean Corpuscular Volume 95.9 fl (80-100); Mean Platelet Volume 8.9 fl (7.4-10.4); Platelet Count Result 371 k/mm3 (150-375); Red Blood Count 3.92 M/mm3 (4.6-6.20); Red Cell Distribution Width 14.4 % (11.5-14.5)
[2020-12-30 12:27] LABS: Anion Gap 7 mmol/L (8-16); Blood Urea Nitrogen 17 mg/dL (9-20); CRP 3.4 mg/dL (<1.0); Calcium 9.3 mg/dL (8.4-10.2); Carbon Dioxide 27 mmol/L (22-30); Chloride 106 mmol/L (98-107); Estimated Glomerular Filt Rate > 60; Glucose 78 mg/dL (65-110); Potassium 4.4 mmol/L (3.4-5.0); Sodium 140 mmol/L (137-145)
== END 2021-03-16 23:59 | disposition home or self-care (01) ==
LOC: ANHVASCINF 11:44
PROVIDERS: PCP Internal Medicine Gastroenterology; Visit Provider Internal Medicine
DX: Z45.2 Encounter for adjustment and management of vascular access device (principal); J18.9 Pneumonia, unspecified organism
CPT/HCPCS: 36415; 36592; 80048; 85027; 86140; 99211; G0463

== ENCOUNTER 2021-05-30 13:27 | Outpatient (CLI) | payer MEDICARE, MEDICAID, SELFPAY ==
--- NOTE | ~2021-05-30 | PE_ITS ---
EXAMINATION: PET skull to mid thigh DATE: 05/30/2021 15:30 INDICATION: Lung mass TECHNIQUE: Blood glucose level was 113 mg/dL. 9.951 mCi of 18-fluorodeoxyglucose (18-FDG) was adminis tered i.v. Low dose computed tomography (CT) images were acquired from the base of the brain to the p roximal thighs for attenuation correction and anatomic localization. Positron emission tomography (PE T) images were acquired in the same distribution beginning 61 minutes after injection. Images includi ng fused PET/CT images were reconstructed in axial, coronal, and sagittal planes. Automated exposure control technique was employed. The dose-length product was 946.31mGy-cm. COMPARISON: CT chest dated 12/04/2020 FINDINGS: Head/neck: There is symmetric increased activity in the oral cavity, laryngeal muscles and ocular muscles withou t CT correlate, likely physiologic. There is asymmetric increased uptake at the right palatine tonsil relative to the left without radiologic correlate. No pathologically enlarged cervical lymphadenopat hy or suspicious foci of increased FDG uptake in the visualized head or neck. Chest: Mild cavitation within a wedge-shaped region of consolidation at the posterior medial aspect of the r ight upper lobe which is significantly decreased in size since the prior CT consistent with likely re sidual scarring and improving chronic pneumonia. There is mild increased FDG uptake with maximal SUV of 3.2 associated with the region of consolidation. Calcified left upper lobe nodule consistent with old granulomatous disease. No other suspicious pulmonary nodules, pulmonary edema or pleural effusion . Heart size is normal. Atherosclerotic coronary artery calcific location. No pericardial effusion. T horacic aorta is normal in caliber. Calcified left hilar and mediastinal lymph nodes consistent with old granulomatous disease. No pathologically enlarged for abnormal FDG avid thoracic lymphadenopathy. Relatively symmetric mild to moderate likely physiologic uptake at the bilateral teres minor muscles . Abdomen/pelvis/proximal thighs: Nonobstructing right nephrolithiasis the largest stones measure approximately 5 mm but difficult to a ccurately quantitate due to some motion artifact. Physiologic renal accumulation and excretion of FDG activity in the kidneys, bladder and along portions of ureters. A few hepatic and splenic calcificat ion is consistent with old granulomatous disease. Normal degree and heterogenous pattern of increased uptake throughout the liver without radiologic correlate or dominant FDG avid lesion. The gallbladde r, pancreas and bilateral adrenal glands are normal. Bowels including the appendix are normal. Mild u ptake scattered throughout the bowels without radiologic correlate, also likely physiologic. No other abnormal foci of increased FDG uptake or pathologically enlarged lymphadenopathy in the abdomen, pel vis or proximal thighs. Small fat-containing left inguinal hernia. Musculoskeletal: Severe cervical and lumbar spondylosis. No suspicious lytic, blastic or FDG avid bone lesions. IMPRESSION: 1. Mild FDG uptake associated with a wedge-shaped region of consolidation with some central cavitatio n at the right upper lobe most likely representing scarring and resolving chronic pneumonia with sign ificant decrease in the region of consolidation since the prior study. Recommend continued CT follow- up to resolution or long-term stability. 2. Asymmetric mild uptake at the right lingual tonsil relative to the left without radiologic correla te which is most likely infectious/inflammatory in etiology. Correlate with direct visualization. 3. Nonobstructing right nephrolithiasis. Reviewed, dictated and finalized at location A. CONSULTANT IMPRESSION: 1. Mild
[2021-05-30 14:07] LABS: Glucose Point of Care 113 mg/dl (65-105)
== END 2021-05-30 13:28 | disposition home or self-care (01) ==
LOC: ANHIMG 13:27
PROVIDERS: PCP Internal Medicine Gastroenterology; Visit Provider Nurse Practitioner
DX: R91.8 Other nonspecific abnormal finding of lung field (principal); N20.0 Calculus of kidney
CPT/HCPCS: 78815; A9552

== ENCOUNTER 2021-06-21 09:42 | Outpatient (CLI) | payer MEDICARE, MEDICAID, SELFPAY ==
--- NOTE | 2021-06-21 13:48 | WPDPFTINT ---
PFT Procedure Performed PFT Procedure Performed Spirometry with Pre/Post Bronchodilator Plethysmography (Lung Vol) Diffusing Cap (DLCO) Flow Vol Loop PFT Interpretation Lung volumes were measured with the body plethysmography method. Lung volumes showed only diminished expiratory reserve volume. Spirometry showed diminished expiratory flow rates and normal FEV1 to FVC ratio 75%. Following administration of a bronchodilator, there was no significant increase in expiratory flow rates. Lung diffusion capacity is mildly reduced at 73% predicted. This restrictive pattern on spirometry in the face of a normal total lung capacity is indicative of nonspecific pattern. Impression: Nonspecific pulmonary function test pattern. No response to bronchodilators on this testing. Mild reduction in lung diffusion capacity.
--- NOTE | 2021-06-22 12:29 | PCRCNOTE ---
PT. REFUSED SIX MINUTE WALK.
== END 2021-06-21 09:43 | disposition home or self-care (01) ==
LOC: ANHPFT 09:44
PROVIDERS: PCP Internal Medicine Gastroenterology; Visit Provider Nurse Practitioner
DX: J44.9 Chronic obstructive pulmonary disease, unspecified (principal)
CPT/HCPCS: 94060; 94726; 94729

== ENCOUNTER 2022-02-24 22:00 | Emergency (ER) | payer MEDICARE, MEDICAID, SELFPAY ==
--- NOTE | ~2022-02-24 | CT_ITS ---
EXAMINATION: CT abdomen pelvis wo con DATE: 02/24/2022 22:48 INDICATION: left flank pain TECHNIQUE: Computed tomography (CT) of the abdomen and pelvis was performed without intravenous contr ast. Automated exposure control and iterative reconstruction technique were employed. The dose-length product was 377.73 mGy-cm. COMPARISON: 05/06/2018. FINDINGS: Lower thorax: Moderate coronary artery calcification. Bilateral dependent atelectasis and bibasilar s carring Liver: Normal. Biliary/Gallbladder: Phrygian cap versus focal adenomyomatosis at the tip of the gallbladder fundus. No bile duct dilation. Pancreas: No mass or duct dilation. Spleen: Granulomas calcification Adrenals:No mass. Kidneys: Bilateral perinephric stranding, slightly greater on the left. 4 mm left UVJ stone. Mild lef t pelvicaliectasis. No right hydronephrosis. No suspicious renal mass. GI tract: No small or large bowel dilation. Normal appendix. Mesentery/Peritoneum: No ascites, mass, or free air. Retroperitoneum: No mass. Atherosclerotic abdominal aortic and/or arterial calcifications. Mild 2.9 c m infrarenal fusiform abdominal aortic aneurysm Pelvis: Moderate prostatomegaly. Mild bladder wall thickening likely due to outlet compromise. Soft Tissues: Uncomplicated fat-containing left inguinal hernia Bones: No acute osseous finding. Lumbar scoliosis, multilevel degenerative disc disease, and bilater al L4 pars defects. IMPRESSION: 4 mm left UVJ stone causing mild obstructive uropathy. Reviewed, dictated and finalized at location K. [employer]
[2022-02-24 22:04] VITALS: BP 142/78; PULSE 73; RESP 18; TEMP 36.6; O2SAT 99
--- NOTE | 2022-02-24 22:11 | PC.NURSE ---
pt took 2 hydrocodone today at 0800pm today 20mg total - didn't touch pain according to pt.
[2022-02-24 22:19] LABS: Basophils Absolute Auto 0.2 K/mm3 (0.0-0.1); Basophils Percent Auto 1.7 % (0.2-1.2); Eosinophils Absolute Auto 0.4 K/mm3 (0-0.3); Eosinophils Percent Auto 3.6 % (0-4.4); Hematocrit 45.1 % (42.0-52.0); Hemoglobin 15.8 g/dL (14.0-18.0); Immature Granulocyte Absolute 0.02 K/mm3 (0.00-0.031); Immature Granulocyte Percent A 0.2 % (0-0.5); Lymphocytes Absolute Auto 3.07 K/mm3 (0.9-3.2); Lymphocytes Percent Auto 29.8 % (18.3-44.2); Mean Corpuscular Hemoglobin 32.3 pg (26-34); Mean Corpuscular Volume 92.2 fl (80-100); Mean Platelet Volume 9.5 fl (7.4-10.4); Monocytes Absolute Auto 0.8 K/mm3 (0.1-0.6); Monocytes Percent Auto 7.6 % (2.6-8.5); Neutrophils Absolute Auto 5.9 K/mm3 (1.3-6.7); Neutrophils Percent Auto 57.1 % (45.5-73.1); Platelet Count Result 257 k/mm3 (150-375); Red Blood Count 4.89 M/mm3 (4.6-6.20); Red Cell Distribution Width 13.3 % (11.5-14.5); White Blood Count 10.3 K/mm3 (4.5-10.0)
[2022-02-24 22:28] LABS: Alanine Aminotransferase 36 U/L (6-50); Alkaline Phosphatase 113 U/L (38-126); Anion Gap 11 mmol/L (8-16); Aspartate Amino Transferase 29 U/L (17-59); Bilirubin,Total 0.5 mg/dL (0.2-1.3); Blood Urea Nitrogen 22 mg/dL (9-20); Calcium 9.5 mg/dL (8.4-10.2); Carbon Dioxide 27 mmol/L (22-30); Chloride 102 mmol/L (98-107); Estimated CRCL calculation 74 ml/min; Estimated Glomerular Filt Rate > 60; Glucose 149 mg/dL (65-110); Potassium 3.7 mmol/L (3.4-5.0); Sodium 140 mmol/L (137-145)
[2022-02-24] MEDS: SODIUM CHLORIDE 0.9% IV 1,000 ML 999 ML IV CONT (22:34)
[2022-02-24] MEDS: ONDANSETRON INJ 4 MG/2 ML VIAL IV PUSH (22:35)
[2022-02-24] MEDS: MORPHINE SULFATE (*CRX) 4 MG/ML INJ IV PUSH (22:35)
--- NOTE | 2022-02-24 22:39 | ED.GENADULT ---
HPI - General Adult General Chief complaint: Abdominal Pain Stated complaint: possible kidney stones Time Seen by Provider: 02/24/22 22:23 History of Present Illness HPI narrative: Patient 66-year-old gentleman who presents to Emergency Department with a chief complaint of left flank pain. The patient reports he has history of kidney stones and reports that he started having pain in the left flank area. The patient states the pain is sharp reports is not improved by anything the patient reports he had some nausea with this as well. Related Data Home Medications Medication Instructions Recorded Confirmed albuterol sulfate 4 mg tablet 8 mg PO Q12H 12/04/20 12/04/20 budesonide-formoterol HFA 80 2 puff inhalation Q12H 12/04/20 12/04/20 mcg-4.5 mcg/actuation aerosol inhaler (Symbicort) escitalopram oxalate 10 mg tablet 10 mg PO DAILY 12/04/20 12/04/20 famotidine 40 mg tablet 40 mg PO QPM 12/04/20 12/04/20 fluticasone propionate 50 1 spray intranasal DAILY 12/04/20 12/04/20 mcg/actuation nasal spray,suspension hydrocodone 10 mg-acetaminophen 1 tablet PO QID PRN Pain 12/04/20 12/04/20 325 mg tablet meloxicam 15 mg tablet 15 mg PO DAILY 12/04/20 12/04/20 montelukast 10 mg tablet 10 mg PO DAILY 12/04/20 12/04/20 theophylline 300 mg 300 mg PO Q12H 12/04/20 12/04/20 tablet,extended release,12 hr tiotropium bromide 18 mcg capsule 1 cap inhalation DAILY 12/04/20 12/04/20 with inhalation device (Spiriva with HandiHaler) Allergies Allergy/AdvReac Type Severity Reaction Status Date / Time No Known Allergies Allergy Verified 02/24/22 22:10 Review of Systems Review of Systems: A 10 system review of systems was completed on the patient and is negative except for what is stated in the HPI. Nursing and ancillary documentation was reviewed. [facility] Past Medical History Medical History COPD (chronic obstructive pulmonary disease) Family History Family History Other Asthma Carcinoma of colon Diabetes mellitus Family history of coronary artery disease Family history of malignant neoplasm of stomach Family history of seizure disorder Hypertension Social History Social History Smoking packs per day: 2 Smoking cigarettes per day: 40.0 Years smoked: 15 Smoking pack-years: 30.00 Smoking status: Former smoker Tobacco type: cigarettes Alcohol intake: never Substance use: never Gender identity (if verbalized by the patient): Male Spiritual care concerns: No Exam Narrative: GENERAL: Well-appearing, well-nourished, and in no acute distress. HEAD: Normocephalic, atraumatic. EYES: PERRLA and EOMI. ENT: Nares clear, no rhinorrhea or epistaxis. Mucous membranes moist. NECK: Supple. CHEST: Clear to auscultation. No respiratory distress. HEART: Regular rate and rhythm. No murmur heard. Normal peripheral pulses. ABDOMEN: Soft, nontender, nondistended, normal active bowel sounds. EXTREMITIES: Normal range of motion. No edema. SKIN: Warm, dry, no rash. NEURO: No focal deficits. Alert and oriented x3. PSYCH: Normal mood and affect. Course Vital Signs Vital signs: Vital Signs Temperature 36.6 C 02/24/22 22:04 Pulse Rate 73 02/24/22 22:04 Respiratory Rate 18 02/24/22 22:04 Blood Pressure 142/78 H 02/24/22 22:04 Pulse Oximetry 99 02/24/22 22:04 Oxygen Delivery Room Air 02/24/22 22:04 Temperature 36.6 C 02/24/22 22:04 Pulse Rate 73 02/24/22 22:04 Respiratory Rate 18 02/24/22 22:04 Blood Pressure 142/78 H 02/24/22 22:04 Pulse Oximetry 99 02/24/22 22:04 Oxygen Delivery Room Air 02/24/22 22:04 Medical Decision Making Vital Signs Vital Signs: Vital Signs Temperature 36.6 C 02/24/22 22:04 Pulse Rate 73 02/24/22 22:04 Respiratory Rate 18 11
[2022-02-24] MEDS: HYDROmorphone HCL INJ (*CRX) 1 MG/ML SYR IV PUSH (23:13)
[2022-02-24 23:47] LABS: Appearance Urine Cloudy (Clear); Bilirubin Urine 1+ (Negative); Blood Urine 3+ (Negative); Color Urine Amber (Yellow); Glucose Urine UA Negative (Negative); Ketones Urine Trace mg/dL (Negative); Leukocyte Esterase Ur Negative LEU/UL (Negative); Nitrate Urine Negative (Negative); Protein Urine 2+ mg/dL (Negative); Specific Grav Ur 1.025 (1.001-1.035); Urobilinogen Urine 0.2 mg/dL (<2.0)
[2022-02-24 23:51] LABS: Add Urine Microscopic? YES; Mucus Urine Few /lpf; RBC Urine >75 /hpf (0-2); WBC Urine 31-50 /hpf
== END 2022-02-25 01:06 | disposition home or self-care (01) ==
PROVIDERS: Nurse Practitioner Family; Emergency Provider Emergency Medicine; PCP Internal Medicine Gastroenterology
DX: N13.9 Obstructive and reflux uropathy, unspecified (principal); N20.1 Calculus of ureter; J44.9 Chronic obstructive pulmonary disease, unspecified; Z87.442 Personal history of urinary calculi; Z87.891 Personal history of nicotine dependence
CPT/HCPCS: 36415; 74176; 80053; 81001; 85025; 87086; 96361; 96374; 96375; 99284; J1170; J2270; J2405; J7030

== ENCOUNTER 2024-07-07 01:41 | Emergency (ER) | payer MEDICARE, MEDICAID, SELFPAY ==
--- NOTE | ~2024-07-07 | CT_ITS ---
CT of the Abdomen and Pelvis: Indication: Abdominal pain Technique: 2.5 mm axial scans were obtained through the abdomen and pelvis following intravenous adm inistration of 100 cc of Omnipaque 350. Dose reduction technique was used on this scan by utilizing a utomated exposure control and iterative reconstruction technique. The dose-length product (DLP) was 1 103.41 mGy-cm. COMPARISON: 02/24/2022 Findings: Scans through the lung bases demonstrate minimal left pleural effusion with probable left basilar atelectasis. The liver, spleen, pancreas, gallbladder, adrenals and kidneys are within normal limits. There are sm all stones at the very distal right ureter without hydroureter. Additional small stones in the cook sauce ior right side of the urinary bladder. There are atherosclerotic calcifications of the aorta. No lym phadenopathy. No bowel obstruction or bowel wall thickening. There is no evidence to suggest acute appendicitis. Images through the pelvis were performed. No bladder urothelial lesion or mass seen. Prostate gland m inimally enlarged. No ascites. Impression: Small distal right ureteral stones and additional urinary bladder stones. No hydronephrosis or hydrou reter. Reviewed, dictated and finalized at location M. Impression: Small distal right ureteral stones and additional urinary bladder stones. No hy dronephrosis or hydroureter.
--- OUTSIDE RECORDS SUMMARY | 2024-07-07 01:43 | XMS_ITS | Data Portability ---
Author Organization [place] - [facility] [employer], Main Office Address [address] [place] [address] Care Team Providers Care Credit Investigator Name Role Phone KOREY KURTZ Primary Care Provider [phone] KOREY KURTZ Referring Provider Assessment No assessment recorded. Plan of Treatment Reminders Order Date Submit Date Provider Last Modified By Organization Details Last Modified Time Details Appointments None recorded. Lab None recorded. Referral None recorded. Procedures None recorded. Surgeries None recorded. Imaging CT, chest, w/o contrast - DUE 11/2022 approved [id number] 11/08/22-05/07 023 [facility] ([facility] Sched[facility]), [address], [place], [address], 3 09:45:00 Medication Orders ipratropium 0.5 mg-albutero l 3 mg (2.5 mg base)/3 mL nebulizatio n soln 2022 023 [facility] #[id number], [address], [place], [place], [id number], 4 12:14:38 albuterol sulfate HFA 90 mcg/actuati on aerosol inhaler 2022 023 [facility], [address], [place], [place], [phone], 4 12:13:35 albuterol sulfate 2.5 mg/3 mL (0.083 %) solution for nebulizatio n [address] [facility]60724, [address], [place], [place], [id number], 4 12:13:24 budesonide- formoterol HFA 160 mcg-4.5 mcg/actuati on aerosol inhaler [address] [facility] [address] [facility] #55524, [address], [place], [place], [id number], 12:13:50 Spiriva with Handi[employer] 18 mcg and inhalation capsules [address] [facility][id number], [address], [place], [place], [id number], 12:15:29 prednisone 10 mg tablet [address] [facility] #83570, [address], [place], [place], [phone], 12:15:11 Patient TargetsNo targets recorded. Patient InstructionsNo instructions recorded. Reason for Referral None Reported. Results Created Date Observation Date Name Description Value Unit Range Abnormal Flag Note LastModifiedBy Organization Detail LastModifiedTime 11/18/19 22 11/17/2021 CT, chest , w/o contr ast No observ ation record ed. [id number] [facility] [address], [place], [address], 06/06/2022 04:36:07 12/29/19 22 XR, knee No observ ation record ed. [id number] [facility] [place] [address], [place], [address], 06/06/2022 04:36:07 05/23/19 23 05/23/2022 CT, chest , w/o contr ast No observ ation record ed. [id number] [facility] Orders [address] [place], [address], 06/06/2022 04:36:07 01/01/20 23 12/28/2022 CT, chest , w/o contr ast No observ ation record ed. [email or web address] [facility] (One Call Scheduling) [address] [place], [address], 01/04/2023 18:38:16 Result Notes None recorded. Problems Name Problem SNOMED Code Status Onset Date Resolution Date Notes Provider Name and Address Organization Details Recorded Time Gastro-eso phageal reflux disease with esophagiti s 696624397 Active 2022 Not Available [facility] 3 22:50:16 Asthma-chr onic obstructiv e pulmonary disease overlap syndrome 2398252508182 9107 Active 2021 Not Available [facility] 3 22:50:16 Chronic obstructiv e pulmonary disease 67677558 Active 2019 Not Available [facility] 3 22:50:16 Acute exacerbati on of chronic obstructiv e pulmonary disease 686876154 Active 2021 Not Available [facility] 3 22:50:16 Asthma 658196060 Active 2018 Not Available [facility] 3 22:50:16 History of SARS-CoV-2 0285265964906 96869 Active 2020 Not Available [facility] 3 22:50:16 Lung mass 583935533 Active 2021 Not Available [facility] 3 22:50:16 Osteoarthr itis of left knee joint 5605061855063 09 Active 2021 Not Available [facility] 3 22:50:16 Pain of left knee joint 5052429886761 07 Active 2021 Not Available [facility] 3 22:50:17 Dyspnea on exertion 49952344 Active 2020 Not Available [facility] 3 22:50:17 Ex-smoker 4700403 Active 2019 Not Available [facility] 3 22:50:17 Dependence on supplement al oxygen 353406607336 Active 2020 Not Available [facility] 3 22:50:17 Kidney stone 73206900 Active 2018 Not Available [facility] 3 22:50:17 Notes:Some problems listed i n Document: #[id number] could not be added to this patient's chart. Please review this document and add these problems to the patient's chart manually as needed. Problem Notes None recorded. Procedures Surgical History None recorded. Imaging Results Imaging Date Name Status LastModified by Organiz ation Details LastModified Time 05/23/2022 CT, chest, w/o contrast completed [id number] [facility] [address] [place], [address], 06/06/2022 04:36:07 12/28/2021 XR, knee completed [id number] [facility] [place] [address], [place], [address], 06/06/2022 04:36:07 11/17/2021 CT, chest, w/o contrast completed [id number] [facility] Orders [address] [place], [address], 06/06/2022 04:36:07 12/28/2022 CT, chest, w/o contrast completed [email or web address] [facility] (One Call Scheduling) [address] [place], [address], 01/04/2023 18:38:16 Procedure Notes None recorded. Medical Equipment None Reported. Allergies No known drug allergies Medications Name Sig Start Date Stop Date Status Note LastModified by Organization Details LastModified Time Prescript ion - Renewal 01/15 completed Fluticas one 50mcg nasal spray Not Available Not Available Not Available venlafaxi ne ER 37.5 mg capsule,e xtended release 24 hr Take 1 capsule every day by oral route in the morning for 30 days. 11/25 completed Not Available Not Available Not Available prednison e 10 mg tablet Take 4 tablets by mouth for 3 days, then 3 tablets by mouth for 3 days, then 2 tablets by mouth for 3 days, then 1 tablet by mouth for 3 days, then 1/2 tablet by mouth for 3 days then off 01/15 completed Not Available Not Available Not Available ipratropi um 0.5 mg-albute rol 3 mg (2.5 mg base)/3 mL nebulizat ion soln USE 3 ML VIA NEBULIZE R EVERY DAY 01/15 completed Not Available Not Available Not Available albuterol sulfate 2.5 mg/3 mL (0.083 %) solution for nebulizat ion USE 3 ML VIA NEBULIZE R THREE TIMES DAILY 01/15 completed Not Available Not Available Not Available ibuprofen 800 mg tablet 12/19 completed Not Available Not Available Not Available metoprolo l tartrate 100 mg tablet 1T PO QD 01/15 completed Not Available Not Available Not Available hydrocodo ne 5 mg-acetam inophen 325 mg tablet TAKE 1 TABLET BY MOUTH EVERY 6 HOURS NEEDED PAIN 11/23 completed Not Available Not Available Not Available meloxicam 15 mg tablet TAKE 1 TABLET BY MOUTH EVERY DAY 01/15 completed Not Available Not Available Not Available famotidin e 40 mg tablet TAKE 1 TABLET BY MOUTH DAILY 01/15 completed Not Available Not Available Not Available clindamyc in HCl 150 mg capsule TAKE ONE CAPSULE BY MOUTH EVERY 6 HOURS UNTIL GONE 12/19 completed Not Available Not Available Not Available albuterol sulfate 4 mg tablet TAKE 2 TABLETS BY MOUTH TWICE DAILY 01/15 completed Not Available Not Available Not Available hydrocodo ne 10 mg-acetam inophen 325 mg tablet TAKE 1 TABLET BY MOUTH FOUR TIMES DAILY NEEDED 01/15 completed Not Available Not Available Not Available amitripty line 50 mg tablet TAKE 1 TABLET BY MOUTH EVERY EVENING 01/15 completed Not Available Not Available Not Available theophyll ine ER 300 mg tablet,ex tended release,1 2 hr TAKE 1 TABLET BY MOUTH EVERY 12 HOURS 01/15 completed Not Available Not Available Not Available amitripty line 25 mg tablet TK 1 T PO QPM active Not Available Not Available No t Available tamsulosi n 0.4 mg capsule TAKE 2 CAPSULES BY MOUTH EVERY DAY 01/15 completed Not Available Not Available Not Available Kenalog 10 mg/mL suspensio n for injection In office injectio n administ ered by the provider 01/15 completed ND: [id number] 4-20 Not Available Not Available Not Available amitripty line 10 mg tablet TK 1 T PO HS 10/22 completed Not Available Not Available Not Available lorazepam 2 mg tablet TAKE 1 TABLET BY MOUTH 90 MINUTES BEFORE APPOINTM ENT TO REDUCE ANXIETY 12/19 completed Not Available Not Available Not Available baclofen 10 mg tablet TAKE 1 TABLET BY MOUTH THREE TIMES DAILY NEEDED 01/15 completed Not Available Not Available Not Available dexametha sone 2 mg tablet TAKE 2 TABLETS BY MOUTH NOW THEN 1 TABLET BY MOUTH DAILY FOR THE NEXT TWO DAYS 12/19 completed Not Available Not Available Not Available hydrocodo ne 7.5 mg-acetam inophen 325 mg tablet TAKE 1 TABLET BY MOUTH EVERY 6 HOURS 01/15 completed Not Available Not Available Not Available prednison e 50 mg tablet Take 1 tablet every day by oral route as directed for 5 days. active Not Available Not Available No t Available gabapenti n 300 mg capsule TAKE 2 CAPSULES BY MOUTH THREE TIMES DAILY 01/15 completed Not Available Not Available Not Available diclofena c sodium 75 mg tablet,de layed release Take 1 tablet twice a day by oral route. 01/15 completed Not Available Not Available Not Available monteluka st 10 mg tablet TAKE 1 TABLET BY MOUTH EVERY DAY DIRECTED 01/15 completed Not Available Not Available Not Available gabapenti n 100 mg capsule TAKE 1 CAPSULE BY MOUTH THREE TIMES DAILY 01/15 completed Not Available Not Available Not Available levofloxa idania 500 mg tablet Take 1 tablet every 24 hours by oral route. 10/22 completed Not Available Not Available Not Available methylpre dnisolone 4 mg tablets in a dose pack FOLLOW PACKAGE DIRECTIO NS 07/30 completed Not Available Not Available Not Available albuterol sulfate HFA 90 mcg/actua tion aerosol inhaler INHALE 2 PUFFS BY MOUTH EVERY 4 HOURS 01/15 completed Not Available Not Available Not Available ondansetr on 4 mg disintegr ating tablet 10/10 /2024 completed Not Available Not Available Not Available fluticaso ne propionat e 50 mcg/actua tion nasal spray,elfego pension SHAKE LIQUID AND USE 1 SPRAY IN EACH NOSTRIL EVERY DAY DIRECTED 01/15 completed Not Available Not Available Not Available finasteri de 5 mg tablet TAKE 1 TABLET BY MOUTH EVERY DAY WITH MEALS 01/15 completed Not Available Not Available Not Available ceftriaxo ne 2 gram solution for injection 05/04 completed Not Available Not Available Not Available escitalop akua 10 mg tablet TAKE 1 TABLET BY MOUTH EVERY DAY 01/15 completed Not Available Not Available Not Available rosuvasta tin 20 mg tablet 01/15 completed Not Available Not Available Not Available Spiriva with [employer] r 18 mcg and inhalatio n capsules INHALE THE CONTENTS OF 1 CAPSULE VIA INHALATI ON DEVICE EVERY DAY 01/15 completed Not Available Not Available Not Available Symbicort 80 mcg-4.5 mcg/actua tion HFA aerosol inhaler INHALE 2 PUFFS BY MOUTH TWICE DAILY. RINSE AND SPIT AFTER USE 05/04 completed Not Available Not Available Not Available budesonid e-formote rol HFA 160 mcg-4.5 mcg/actua tion aerosol inhaler INHALE 2 PUFFS BY MOUTH TWICE DAILY 01/15 completed Not Available Not Available Not Available ropivacai ne (PF) 5 mg/mL (0.5 %) injection solution Take 20 mg by injectio n route. 01/15 completed Not Available Not Available Not Available Xarelto 20 mg tablet 01/15 completed Not Available Not Available Not Available oxygen 2 L @qhs 01/15 completed Not Available Not Available Not Available Trelegy Ellipta 100 mcg-62.5 mcg-25 mcg powder for inhalatio n INHALE 1 PUFF BY MOUTH EVERY DAY DIRECTED . RINSE AND SPIT AFTER USE 11/25 completed Not Available Not Available Not Available Vitals Date Recorded Body mass index (BMI) Body height Oxygen saturation Oxygen saturation in Arterial blood by Pulse oximetry Heart rate Body temperature Body weight Systolic blood pressure Diastolic blood pressure Provider Name and Address Organization Details Last Updated DateTime 2 31.5 kg/m2 180.34 cm 96 % 96 % 69 /min 97.6 [degF] 069308. 44 g 148 mm[Hg] 74 mm[Hg] Not Available [facility] 3 04:28:51 Date Recorded Body mass index (BMI) Body height Oxygen saturation Oxygen saturation in Arterial blood by Pulse oximetry Heart rate Respiratory rate Body temperature Body weight Systolic blood pressure Diastolic blood pressure Provider Name and Address Organization Details Last Updated DateTime 2 31 kg/m2 180.34 cm 96 % 96 % 64 /min 18 /min 97 [degF] 645995. 51 g 122 mm[Hg] 78 mm[Hg] Not Available [facility] 3 04:28:51 Date Recorded Body mass index (BMI) Body height Body weight Provider Name and Address Organization Details Last Updated DateTime 12/28/2021 33 kg/m2 177.8 cm 133659.25 g Not Available [facility] 06/06/2022 04:28:54 Date Recorded Body height Body mass index (BMI) Body weight Body temperature Heart rate Oxygen saturation Oxygen saturation in Arterial blood by Pulse oximetry Systolic blood pressure Diastolic blood pressure Provider Name and Address Organization Details Last Updated DateTime 3 177.8 cm 30 kg/m2 84038.8 1 g 98 [degF] 70 /min 95 % 95 % 120 mm[Hg] 80 mm[Hg] Kiarra Cordova MA [facility] [employer] [employer] 3 14:04:40 Date Recorded Body height Body weight Body temperature Heart rate Oxygen saturation Oxygen saturation in Arterial blood by Pulse oximetry Systolic blood pressure Diastolic blood pressure Provider Name and Address Organization Details Last Updated DateTime 3 177.8 cm 35320.3 2 g 97.8 [degF] 77 /min 96 % 96 % 124 mm[Hg] 78 mm[Hg] Hermila High RN [facility] [employer] 3 15:21:00 Social History Question Answer Notes LastModified by Organizat ion Details LastModified Time Tobacco Smoking Status Former Smoker Not Available [facility] 06/06/2022 04:20:55 Do You Have An Advance Directive? No [id number] Information not available 06/06/2022 What Is Your Level Of Alcohol Consumption? None MIGRATION.28680 11171 Information not available 06/06/2022 What Is Your Level Of Caffeine Consumption? Moderate Coffee 1 Cup Per Day And Soda Every Day And Tea Too MIGRATION.66298 99754 Information not available 06/06/2022 How Much Tobacco Do You Chew? None MIGRATION.70366 90529 Information not available 06/06/2022 In The 14 Days Before Symptom Onset, Have You Had Close Contact With A Laboratory-confir med COVID-19 While That Case Was Ill? No MIGRATION.77485 70762 Information not available 06/06/2022 In The 14 Days Before Symptom Onset, Have You Had Close Contact With A Person Who Is Under Investigation For COVID-19 While That Person Was Ill? No MIGRATION.90979 75434 Information not available 06/06/2022 What Type Of Diet Are You Following? REGULAR MIGRATION.80235 81660 Information not available 06/06/2022 Which Illicit Or Recreational Drugs Have You Used? None MIGRATION.97978 93286 Information not available 06/06/2022 Do You Or Have You Ever Used E-cigarettes Or Vape? Never Used Electronic Cigarettes MIGRATION.94738 39534 Information not available 06/06/2022 Do You Have An Electrostatic Air Filter? No MIGRATION.47816 42856 Information not available 06/06/2022 When Did You Quit Smoking? 1-5yearssincel astcigarette MIGRATION.48159 75284 Information not available 06/06/2022 Do You Have A Humidifier? No MIGRATION.74973 84123 Information not available 06/06/2022 Do You Have Moisture Problems In Your Home? No MIGRATION.80164 67216 Information not available 06/06/2022 What Was The Date Of Your Most Recent Tobacco Screening? 03/24/2021 MIGRATION.87912 24256 Information not available 06/06/2022 How Many Children Do You Have? 1 MIGRATION.63545 20578 Information not available 06/06/2022 Do You Have Any Pets? No MIGRATION.57393 45074 Information not available 06/06/2022 At What Age Did You Start Smoking Tobacco? 13 MIGRATION.52437 72155 Information not available 06/06/2022 Are You Passively Exposed To Smoke? No MIGRATION.20255 54452 Information not available 06/06/2022 Do You Or Have You Ever Used Smokeless Tobacco? Never Used Smokeless Tobacco MIGRATION.38547 50530 Information not available 06/06/2022 How Many Years Have You Smoked Tobacco? 50 MIGRATION.21476 51750 Information not available 06/06/2022 Have You Recently Traveled Abroad? No MIGRATION.69154 20057 Information not available 06/06/2022 Sex: Unknown Functional Status Question Answer Note LastModified by Organizat ion Details LastModified Time What is your exercise level? None [id number] Information not available 06/06/2022 Mental Status None recorded. Family History Relationship Description Onset Age of this Age Resolved Age Notes LastModified by Organization Details LastModified Time Father Diabetes mellitus MIGRATION.210 [id number] Not available 06/06/2022 04:24:47 Father Heart disease MIGRATION.474 [id number] Not available 06/06/2022 04:24:47 Paternal Aunt Diabetes mellitus MIGRATION.678 [id number] Not available 06/06/2022 04:24:47 Paternal Aunt Heart disease MIGRATION.793 [id number] Not available 06/06/2022 04:24:47 Paternal Grandfather Diabetes mellitus MIGRATION.371 [id number] Not available 06/06/2022 04:24:47 Paternal Grandfather Heart disease MIGRATION.998 [id number] Not available 06/06/2022 04:24:47 Paternal Grandmother Diabetes mellitus MIGRATION.489 [id number] Not available 06/06/2022 04:24:47 Paternal Uncle Diabetes mellitus MIGRATION.570 [id number] Not available 06/06/2022 04:24:47 Paternal Uncle Heart disease MIGRATION.965 [id number] Not available 06/06/2022 04:24:47 Unspecified Relation Family history of malignant neoplasm multip le releit alonzo multip le differ ent kinds of cancer MIGRATION.465 [id number] Not available 06/06/2022 04:24:47 Unspecified Relation Heart disease MIGRATION.950 [id number] Not available 06/06/2022 04:24:47 Maternal Grandfather Heart disease MIGRATION.583 [id number] Not available 06/06/2022 04:24:47 Mother Family history of malignant neoplasm MIGRATION.090 [id number] Not available 06/06/2022 04:24:47 Notes:blood clots in legs/donna ngs-father Medical History Condition Response ARTHRITIS Y URINARY/BLADDER/KIDNEY PROBLEMS Y USE OF BLOOD THINNERS Y LUNG DISEASE/DISORDER Y COPD Y Immunizations Vaccine Type Date Status Note Provider Nam e and Address Organization Details Recorded Time SARS-COV-2 (COVID-19) vaccine, UNSPECIFIED 1 completed Not Available [facility] 08/15/2022 22:50:17 Influenza, split virus, quadrivalent, preservative 1 completed Not Available [facility] 08/15/2022 22:50:17 DTaP-IPV 0 completed Not Available [facility] 08/15/2022 22:50:17 Past Encounters Encounter ID Performer Location Encounter Start Date Encounter Closed Date Diagnosis/Indication Diagnosis SNOMED-CT Code Diagnosis ICD10 Code Diagnosis Note [id number] [facility] [address] [address] 08/05/2020 00:00:00 08/05/2020 13:35:56 [id number] [facility] [place] [address] [place] [address] 11/25/2020 00:00:00 11/25/2020 12:14:13 [id number] _ATHENA_M IGRATION_ DEFAULT_1 _1 , 12/27/2020 00:00:00 12/27/2020 16:49:46 [id number] [facility] [place] [address] [place] [address] 01/13/2021 00:00:00 03/24/2021 15:50:14 [id number] _ATHENA_M IGRATION_ DEFAULT_1 _1 , 03/21/2021 00:00:00 03/21/2021 18:19:53 [id number] [facility] [place] [address] [place] [address] 03/24/2021 00:00:00 03/24/2021 15:05:03 [id number] [facility] [place] [address] [place] [address] 05/04/2021 00:00:00 05/04/2021 16:06:37 [id number] [facility] [place] [address] [place] [address] 09/29/2021 00:00:00 09/29/2021 13:03:02 [id number] [facility] [place] [address] [place] [address] 12/12/2021 00:00:00 12/12/2021 14:33:28 [id number] [facility] [place] [address] [place] [address] 12/28/2021 00:00:00 12/28/2021 13:42:40 [id number] Sharlene Azar, OFFICE NURSE-BC [facility] [place] [address] [place] [address] 07/30/2022 13:57:49 07/30/2022 14:42:47 Lung mass 161660320 R91.8 To RULPET-CT completed 05/2021 with decrease in size of RUL wedge shaped consolidat ionUptake at 3.2Repeat CT 6 months from PET with significan t improvemen t in this area, but not resolution CT chest 05/2022 with additional slight decrease in sizeDiscus sed with Quintin that there may still be an underlying malignancy He understand s and declines additional interventi on.Agrees to repeat in 6 months, 11/2022 Asthma-chr onic obstructive pulmonary disease overlap syndrome 7940810419 6125401 J44.9 Recent PFT, in chartConti nue Symbicort and Spiriva, he declines nebulizer maintenanc e therapyRAS T highly reactive, IGE 2878Encour aged gravity meter observer visit, order previously enteredPre dnisone on hand. He is aware to call me if he needs to start using this.Discu ssed reportable signs and symptomsRT C in 6 months, PRN for concerns Dyspnea on exertion 6084 5006 R06.09 Multifacto ralContinu e inhaled therapyI strongly recommend gravity meter observer Activity intolerance 774 31966 Z73.89 Multifacto ralback and joint pain contributi ng Dependence on supplemental oxygen 3176061747 07 Z99.81 Continue 2.5 liters at night.He has good use and clinical benefit. [id number] Sharlene Nissa, OFFICE NURSE-BC [facility] [place] [address] [place] [address] 02/18/2023 15:07:44 02/18/2023 16:03:55 Lung mass 579350522 R91.8 To RULPET-CT completed 05/2021 with decrease in size of RUL wedge shaped consolidat ionUptake at 3.2Repeat CT 6 months from PET with significan t improvemen t in this area, but not resolution CT chest 05/2022 with additional slight decrease in sizeDiscus sed with Quintin that there may still be an underlying malignancy He understand s and declines additional interventi on.Repeat CT 12/2022 with stable RUL consolidat ion. No adenopathy Asthma-chr onic obstructive pulmonary disease overlap syndrome 3635118282 3622192 J44.9 PFT 06/2021 with mild reduction in DLCO, corrects to highContin ue Symbicort 160 (generic per insurance coverage and Spiriva Handihaler , he declines nebulizer maintenanc e therapyRAS T highly reactive, IGE 2878Encour aged gravity meter observer visit, order previously enteredDis cussed reportable signs and symptomsNe bulizer for PRN useAdvised vaccines this fall Dyspnea on exertion 6084 5006 R06.09 Multifacto ralContinu e inhaled therapyI strongly recommend allergistW Eight lossPain control Activity intolerance 774 64658 Z73.89 Multifacto ralback and joint pain contributi ng Dependence on supplemental oxygen 0318080999 07 Z99.81 Continue 2.5 liters at night.He has good use and clinical benefit. Health Concerns Section Related Observation LastModified by Organization Detai ls LastModified Time None Recorded Concern Status LastModified by Organization Details LastModified Time None Recorded Advance Directives Directive N: Payers Encounter Date Sequence Insurance Name Policy Number Policy Lim Covered Member ID Lim Member ID Guarantor Name 07/30/2022 1 [employer] - [employer]IME (MEDICARE REPLACEMENT/A DVANTAGE - HMO) [id number] Quintin Tahcker [id number] Quintin Thacker 07/30/2022 2 [place] [facility] Quintin Thacker [id number] Quintin Thacker 02/18/2023 1 [employer] - [employer]IME (MEDICARE REPLACEMENT/A DVANTAGE - HMO) [id number] Quintin Thacker [id number] Quintin Thacker 02/18/2023 2 [place] [facility] Quintin Thacker [id number] Quintin Thacker Notes Date Note Type Note Provider Name and Address Organization Details Recorded Time 2 text/html KneeReported bypatient.Location:left Quality:aching; throbbing; dull Severity:moderate Duration:continuous since onset Timing:chronic Alleviating Factors:sitting; lying down; rest; elevation Aggravating Factors:bending/squattin g; weight bearing Associated Symptoms:no weakness; no numbness; no tingling; no redness; no ecchymosis; no catching/locking; no popping/clicking; no buckling; no instability; no radiation down leg; no drainage; no fever; no chills; no weight loss; no change in bowel/bladder habits;swelling;warmth;g rinding Not Available [place] [facility] [employer] [facility] [facility] 12/28/2021 13:42:40 3 text/html Quintin presents today for follow up on asthma/COPD, cough, dependence on oxygen, dyspneaContinues to report activity limitations but tells me he feels like he has been doing very well with his breathing.Reports most activity intolerance is musculoskeletalAlso endorses reactions to weather and strong scents.Has not see gravity meter observer.Does not complain of allergies currentlyDenies hemoptysis, night sweats, weight loss, swollen lymph nodes, chest pain and unintentional weight lossContinues to report good and bad daysWheezing is intermittently persistent, albuterol use has decreased to about 2-3x weeklyCompliant with Symbicort and SpirivaHe feels like Spiriva dries my lungs out and admits to use every other dayHe does have intermittent runny nose, sneezingDoes report that he did better when he was on prednisone daily (years ago through old MD)One exacerbation since last OV Sharlene Azar, OFFICE NURSE-BC [address] [facility], [facility] [address], [place], [address], [facility] [employer] 07/30/2022 16:50:10 3 text/html Quintin presents today for follow up on asthma/COPD, cough, dependence on oxygen, dyspneaContinues to report activity limitations but tells me he feels like he has been doing very well with his breathing.He continues to report pain significantly influences his activity tolerance.Was cut off pain medication from [facility] for about a month and used alternative therapies (milkweed for pain and garlic/onions/antioxidan ts for breathing)Continues to endorse reactions to weather and strong scents.Has not seen gravity meter observer despite strong reactions on RAST bloodworkDoes not complain of allergies currently - intermittent sinus congestionDenies hemoptysis, night sweats, weight loss, swollen lymph nodes, chest pain and unintentional weight lossContinues to report good and bad daysWheezing is intermittently persistent, albuterol use has decreased to about 2-3x weeklyHis nebulizer is broken, requesting replacement today.Compliant with Symbicort 160 and Spiriva HandihalerHe does have intermittent runny nose, sneezingDoes report that he did better when he was on prednisone daily (years ago through old MD)One exacerbation (he calls this bronchitis) since last OV but did not require steroids or antibiotics Sharlene Azar, OFFICE NURSE- [address] [facility] [facility] [address], [place], [address], [facility] [employer] 02/18/2023 16:32:36
--- OUTSIDE RECORDS SUMMARY | 2024-07-07 01:44 | XMS_ITS | Clinical Summary ---
Author Organization [facility] [address] Address [address] [facility] [place] [address] Care Team Providers Care Camp Head Counselor Name Role Phone Bentley Caruso MD Primary Care Provider [phone] Source Comments [facility] [address],non-owned Affiliates and Associated Physician Practices is amultiple site organization consisting of ambulatory clinics and hospital sitesin [place], [place], [place] and [place]. This disclosure is being madepursuant to the Care Everywhere program and may not contain all information available regarding this patient. Last updated 17.[facility] [address] Allergies No known active allergies Medications * Be aware that medications may not be up to date on this document. Alwaysverify current medications with the patient. Medication Sig Dispensed Refills Start Date End Date Status albuterol (PROVENTIL) 4 MG tablet 08/25/2018 Active baclofen (LIORESAL) 10 MG tablet Take 10 mg by mouth 3 times daily as needed Active HYDROcodone-acetami nophen (NORCO) 10-325 MG tablet Take 1 tablet by mouth every 8 hours as needed Active theophylline CR 12hr (THEODUR) 300 MG tablet Take 300 mg by mouth 2 times daily Active albuterol HFA (PROVENTIL;VENTOLIN ;PROAIR) 108 (90 Base) MCG/ACT inhaler 08/06/2018 Active diclofenac sodium (VOLTAREN) 1 % gel Apply 4 g to affected area 4 times daily 2 gm amount for elbow, wrist or hand 4 gm amount for knee, ankle or foot 100 g 5 06/01/2019 Active SYMBICORT 80-4.5 MCG/ACT inhaler INL 2 PFS PO BID UTD 06/24/2019 Active SPIRIVA HANDIHALER 18 MCG inhalation capsule INL THE CONTENTS OF 1 C VIA INHALATION DEVICE QD 06/23/2019 Active meloxicam (Mobic) 15 MG tablet TAKE 1 TABLET BY MOUTH EVERY DAY 30 tablet 2 11/28/2021 Active meloxicam (Mobic) 15 MG tablet TAKE 1 TABLET BY MOUTH EVERY DAY 30 tablet 2 08/06/2022 Active meloxicam (Mobic) 15 MG tablet TAKE 1 TABLET BY MOUTH EVERY DAY 90 tablet 1 05/12/2024 Active Active Problems Problem Noted Date Diagnosed Date Back pain 12/23/2019 Degenerative spondylolisthesis 05/27/2019 Kidney stone 07/24/2018 Asthma 07/24/2018 Resolved Problems Problem Noted Date Diagnosed Date Resolved Date Elbow injury, left, initial encounter 09/05/2018 07/20/2019 Rupture of left triceps tendon 09/05/2018 06/01/2019 Post-op pain 06/01/2019 Encounters Date Type Department Care Team Description 05/12/2024 Refill [facility] - Orthopedics [address] [place] [id number] Natanael Guerrier MD Refill Request from Last 3 Months Social History Tobacco Use Types Packs/Day Years Used Date Smoking Tobacco: Former Cigarettes Smokeless Tobacco: Never Alcohol Use Standard Drinks/Week Comments Never 0 (1 standard drink = 0.6 oz pur e alcohol) AUDIT-C Answer Date Recorded Frequency of Alcohol Consumption Never 12/23/2018 Average Number of Drinks Not on file 019 Frequency of Binge Drinking Not on file 12/07 Sex and Gender Information Value Date Recorded Sex Assigned at Not on file Gender Identity Not on file Sexual Orientation Not on file Last Filed Vital Signs Vital Sign Reading Time Taken Comments Blood Pressure 134/80 10/07/2019 11:13 AM CDT Pulse 83 10/07/2019 11:13 AM CDT Temperature 36.8 C (98.3 F) 06/01/2019 2:04 PM GRILL ATTENDANT Respiratory Rate 16 03/09/2019 1:37 PM GRILL ATTENDANT Oxygen Saturation 98% 10/07/2019 11:13 AM CDT Inhaled Oxygen Concentration - - Weight 88.5 kg (195 lb) 10/06/2019 12:48 PM CDT Height 172.7 cm (5' 8 ) 06/01/2019 2:04 PM GRILL ATTENDANT Body Mass Index 29.65 06/01/2019 2:04 PM GRILL ATTENDANT Plan of Treatment Health Maintenance Due Date Last Done Comments COLOGUARD (AGES 45-75) - COL ON CA SCREENING 1956 COLON MONITORING 1956 COLONOSCOPY - COLON CA SCREENING 1956 CT COLONOGRAPHY - COLON CA SCREENING 1956 Colorectal Cancer Screening 1956 FIT - COLON CA SCREENING 1956 FLEX SIG - COLON CA SCREENING 1956 LIPID TESTING 1956 MEDICARE AWV 12 MONTHS 1956 HEPATITIS C SCREENING 04/23/1974 DTAP/TDAP/TD VACCINES (1 - Tdap) 1975 PNEUMOCOCCAL VACCINE 50+ (1 of 2 - PCV) 1975 ZOSTER VACCINE (1 of 2) 2006 Respiratory Syncytial Virus (RSV) Vaccine Pt: or over 60 yrs (1 - Risk 60-74 years 1-dose series) 2016 AAA SCREENING 2021 SCREENING FOR DIABETES 12/09/2021 9, 12/09/2018 COVID-19 VACCINE (1 - 2023-2 5 season) 2023 INFLUENZA VACCINE (#1) 2023 DEPRESSION SCREENING 04/08/2024 HEPATITIS B VACCINE Aged Out No longe r eligible based on patient's age to complete this topic HIB VACCINE Aged Out No longer eligi ble based on patient's age to complete this topic HPV VACCINE Aged Out No longer eligi ble based on patient's age to complete this topic MENINGOCOCCAL (Group B) VACCINE SHARED DECISION-MAKING Aged Out No longer eligible based on patient's age to complete this topic MENINGOCOCCAL GROUPS A/C/Y/W VACCINE Aged Out No longer eligible b ased on patient's age to complete this topic Goals Goal Patient Goal Type Associated Problems Recent Progress Patient-Stated? Author Mobility General Worsening(07/2019 2:04 PM GRILL ATTENDANT) Yes Shara Nunn, RN Note: Expected end date:04/08/2019 The goal is to maintain or improve your mobility at the optimum level for you. Interventions: Medical Devices Implanted Type Area Classified Ad Taker Device Identifier Shelf Expiration Date Model / Serial / Lot Kit Arthsc Fx Internalbrace Fibertape Implanted:Qty: 1 on 12/25/2018 by Natanael Guerrier MD at [facility] Left: Elbow [employer] 09/05/2020 [id number] / / [id number] Procedures Procedure Name Priority Date/Time Associated Diagnosis Comments COMPREHENSIVE METABOLIC PANEL Routine 12/09/2018 3:46 PM CDT Rupture of left triceps tendon, initial encounter from Last 3 Months or Most Recently Relevant to Health Maintenance Results * (ABNORMAL) COMPREHENSIVE METABOLIC PANEL (12/09/2018 3:46 PM CDT) BUN 31(H) 7 - 26 mg/dL 12/09/2018 5:06 PM [facility] Creatinine 1.1 0.6 - 1.2 mg/dL 12/09/2018 5:06 PM [facility] Sodium 140 136 - 145 mmol/L 12/09/2018 5:06 PM [facility] Potassium 3.8 3.5 - 4.5 mmol/L 12/09/2018 5:06 PM [facility] Chloride 105 98 - 107 mmol/L 12/09/2018 5:06 PM [facility] CO2 25 22 - 29 mmol/L 12/09/2018 5:06 PM [facility] Glucose 82 70 - 115 mg/dL 12/09/2018 5:06 PM [facility] Calcium 9.5 8.4 - 10.2 mg/dL 12/09/2018 5:06 PM [facility] Protein Total 6.8 6.0 - 8.3 g/dL 12/09/2018 5:06 PM [facility] Albumin 3.7 3.4 - 5.0 g/dL 12/09/2018 5:06 PM [facility] Bilirubin Total 0.4 0.2 - 1.2 mg/dL 12/09/2018 5:06 PM [facility] Alkaline Phosphatase 134 40 - 150 Units/L 12/09/2018 5:06 PM [facility] ALT 24 0 - 55 Units/L 12/09/2018 5:06 PM [facility] AST 16 5 - 34 Units/L 12/09/2018 5:06 PM CDT [facility] Anion Gap 14 8 - 18 12/09/2018 5:06 PM T [facility] BUN/Creatinine Ratio 28(H) 7 - 23 12/09/2018 5:06 PM CDT [facility] Osmolality Calculated 296 270 - 300 mOsm/kg 12/09/2018 5:06 PM CDT [facility] Albumin/Globulin Ratio 1.2 1.1 - 2.3 12/09/2018 5:06 PM T [facility] eGFR >60 >60 mL/min/1.7 3 m2 12/09/2018 5:06 PM T [facility] Blood BLOOD SPECIMEN / Unknown Lab Venipuncture / Unknown 12/09/2018 3:46 PM CDT 12/09/2018 4:34 PM CDT Natanael Gurerier MD LAB - CHEMISTRY DIANA OVALLE [facility] Organization Address City/State/[facility] Co de Phone Number [facility] [address] [phone] from Last 3 Months or Most Recently Relevant to Health Maintenance Care Teams Camp Head Counselor Relationship Specialty Start Date End Date Bentley Caruso MD PCP - General Family Medicine 08/05/19 Guido Jeffries [address] [facility] [address] [place] [address] Group Practice Pediatrician Pulmonary Disease 12/18/18
--- OUTSIDE RECORDS SUMMARY | 2024-07-07 01:44 | XMS_ITS | Clinical Summary ---
Author Organization [facility] Facility Address [address] [place] [id number] Care Team Providers Care Head Charrer Name Role Phone Jose Post MD Primary Care Provider Social History Tobacco Use Types Packs/Day Years Used Date Smoking Tobacco: Never Assessed Sex and Gender Information Value Date Recorded Sex Assigned at Not on file Legal Sex Male 11:03 AM EDT Gender Identity Not on file Sexual Orientation Not on file Plan of Treatment Health Maintenance Due Date Last Done Comments Colorectal Cancer Screening: Annual FOBT 2005 Colorectal Cancer Screening: Colonoscopy 2005 Colorectal Cancer Screening: Sigmoidoscopy 2005 Pneumococcal Vaccine: 65+ Ye ars (1 of 1 - PCV) 2021 Influenza Vaccine (#1) 2023 Hepatitis B Vaccine Aged Out No longe r eligible based on patient's age to complete this topic Insurance [place]ICAID [place] Care Teams Head Charrer Relationship Specialty [place] [address] [place] [id number] PCP - General Internal Medicine 07/17/22
--- OUTSIDE RECORDS SUMMARY | 2024-07-07 01:44 | XMS_ITS | CONTINUITY OF CARE DOCUMENT ---
Author Name demarcoerrollydia Address Unknown Organization [facility] Address [address] [facility] [address] [place] [address] Phone [phone] Care Team Providers Care Brick Pitcher Name Role Phone Ruth Magallon MD Unavailable MICHI KURTZ MD Unavailable MICHI KURTZ MD Unavailable [phone] INSURANCE PROVIDERS Payer name Policy type / Coverage type [place] [employer] democr[employer] [employer] Medicaid 3 [id number] [facility] MEDICARE COMPLETE HMO Other [id number]
--- OUTSIDE RECORDS SUMMARY | 2024-07-07 01:44 | XMS_ITS | Data Portability ---
Author Organization [facility] ALCarla Veloz Address [address] [place] [address] Assessment No assessment recorded. Plan of Treatment Reminders Order Date Submit Date Provider Last Modified By Organization Details Last Modified Time Details Appointments None recorded. Lab drug screen, 14 drugs (detectimed ), urine 2023 024 LYLE BILLY, Mick arely Coon, [facility] [address], [place], [address], 4 13:09:40 PSA, total, serum or plasma 2022 023 LYLE BILLY, [address] [place], [place] [address]damon Coon, [facility] [address], [place], [address], 3 09:14:12 CMP, serum or plasma 2022 023 LYLE BILLY, [address] [place], [place] [address]damon Shaggy, [facility] [address], [place], [address], 3 06:16:28 lipid panel, serum 2022 023 LYLE BILLY, [facility], [facility] [address], [place], [address], 3 06:16:27 Referral orthopedic surgeon referral 2023 024 LYLE Lara MD, [address] [facility], [facility], [place], [address], 4 13:28:11 Procedures None recorded. Surgeries None recorded. Imaging None recorded. Medication Orders hydrocodone 10 mg-acetamin ophen 325 mg tablet 2023 024 [facility][id number], [address], [place], [place], [id number], 4 15:15:41 gabapentin 300 mg capsule 2022 023 [facility] #[id number], [address], [place], [place], [id number], 4 12:26:37 hydrocodone 10 mg-acetamin ophen 325 mg tablet 2022 023 [facility][id number], [address], [place], [place], [id number], 3 16:40:56 Patient TargetsNo targets recorded. Patient Instructions Encounter Date Encounter Id Patient Instructions Last Modified By Organization Details Last Modified Time 12/17/2022 [id number] chronic obstructive pulmonary disease (COPD): care instructions [email or web address] Not available 12/17/2022 16:40:48 learning about copd and how to prevent lung infections [email or web address] Not available 12/17/2022 16:40:48 high cholesterol : care instructions [email or web address] Not available 12/17/2022 16:40:48 04/15/2023 [id number] controlling your asthma: care instructions [email or web address] Not available 04/15/2023 17:09:21 learning about asthma [email or web address] Not available 04/15/2023 17:09:21 A healthy lifestyle: care instructions Not available 04/15/2023 17:09:21 chronic obstructive pulmonary disease (COPD): care instructions [email or web address] Not available 04/15/2023 17:09:20 learning about copd and how to prevent lung infections [email or web address] Not available 04/15/2023 17:09:21 07/18/2023 [id number] A healthy lifestyle: care instructions [email or web address] Not available 07/18/2023 15:07:45 high cholesterol : care instructions [email or web address] Not available 07/18/2023 15:07:45 chronic obstructive pulmonary disease (COPD): care instructions Not available 07/18/2023 15:07:45 learning about copd and how to prevent lung infections [email or web address] Not available 07/18/2023 15:07:45 10/17/2023 [id number] A healthy lifestyle: care instructions [email or web address] Not available 10/17/2023 17:15:01 chronic obstructive pulmonary disease (COPD): care instructions [id number] Not available 10/17/2023 17:15:01 learning about copd and how to prevent lung infections [email or web address] Not available 10/17/2023 17:15:01 02/10/2024 [id number] shortness of breath: care instructions [email or web address] Not available 02/10/2024 16:12:16 Reason for Referral Orthopedic Surgeon Referral for Pain of left shoulder joint Chronic left shoulder injury Referring Physician: Jose Post, Internal Medicine, Encounter Date: 07/18/2023 Results Created Date Observation Date Name Description Value Unit Range Abnormal Flag Note LastModifiedBy Organization Detail LastModifiedTime 12/18/1912/17/2022 LIPID PANEL cholesterol, total 187 mg/dL 100-19 9 Not Available [facility] [address] [place], [address], 12/18/2022 06:16:27 12/18/1912/17/2022 LIPID PANEL triglyceride s 137 mg/dL 0-149 Not Available [facility] Department [address] [place], [address], 12/18/2022 06:16:27 12/18/1912/17/2022 LIPID PANEL HDL cholesterol 39 mg/dL 40-999 below low normal Not Available [facility] [address] [place], [address], 12/18/2022 06:16:27 12/18/1912/17/2022 LIPID PANEL VLDL cholesterol candace 27 mg/dL 5-40 Not Available [facility] Department [address] [place] [address], [address], 12/18/2022 06:16:27 12/18/19 23 12/17/2022 LIPID PANEL LDL chol calc (nih) 140 mg/dL 0-99 above high normal Not Available [facility] Department [address] [place], [address], 12/18/2022 06:16:27 12/18/19 23 12/17/2022 COMP. METAB OLIC PANEL (14) glucose 95 mg/dL 70-99 Not Available [facility] Department [address] [place] [address], [address], 12/18/2022 06:16:28 12/18/19 23 12/17/2022 COMP. METAB OLIC PANEL (14) BUN 18 mg/dL 8-27 Not Available [facility] Department [address] [place] [address], [address], 12/18/2022 06:16:28 12/18/19 23 12/17/2022 COMP. METAB OLIC PANEL (14) creatinine 1.07 mg/dL 0.76-1 .27 Not Available [facility] Department [address] [place] [address], [address], 12/18/2022 06:16:28 12/18/19 23 12/17/2022 COMP. METAB OLIC PANEL (14) eGFR 77 >=60 Units for eGFR value s are mL/mi n/1.7 3 The eGFR Calcu latio n has not been valid ated for patie nts under the age of 18. If test resul ts are displ ayed for a patie nt under the age of 18, disre gabi that value . Not Available [facility] Department [address] [place], [address], 12/18/2022 06:16:28 12/18/19 23 12/17/2022 COMP. METAB OLIC PANEL (14) BUN/creatini ne ratio 16 10-24 Not Available [facility] Department [address] [place], [address], 12/18/2022 06:16:28 12/18/1912/17/2022 COMP. METAB OLIC PANEL (14) sodium 142 mmol/ L 134-14 4 Not Available [facility] Department [address] [place], [address], 12/18/2022 06:16:28 12/18/19 23 12/17/2022 COMP. METAB OLIC PANEL (14) potassium 4.6 mmol/ L 3.5-5. 2 Not Available [facility] [address] [place], [address], 12/18/2022 06:16:28 12/18/19 23 12/17/2022 COMP. METAB OLIC PANEL (14) chloride 105 mmol/ L 96-106 Not Available [facility] Department [address] [place] [address], [address], 12/18/2022 06:16:28 12/18/19 23 12/17/2022 COMP. METAB OLIC PANEL (14) carbon dioxide, total 25 mmol/ L 20-29 Not Available [facility] Department [address] [place], [address], 12/18/2022 06:16:28 12/18/19 23 12/17/2022 COMP. METAB OLIC PANEL (14) calcium 9.5 mg/dL 8.6-10 .2 Not Available [facility] [address] [place], [address], 12/18/2022 06:16:28 12/18/1912/17/2022 COMP. METAB OLIC PANEL (14) protein, total 7.4 g/dL 6.0-8. 5 Not Available [facility] Department [address] [place], [address], 12/18/2022 06:16:28 12/18/19 23 12/17/2022 COMP. METAB OLIC PANEL (14) albumin 4.4 g/dL 3.9-4. 9 Not Available [facility] Department [address] [place] [address], [address], 12/18/2022 06:16:28 12/18/19 23 12/17/2022 COMP. METAB OLIC PANEL (14) globulin, total 3.0 g/dL 1.5-4. 5 Not Available [facility] Department [address] [place], [address], 12/18/2022 06:16:28 12/18/19 23 12/17/2022 COMP. METAB OLIC PANEL (14) A/G ratio 1.0 1.2-2. 2 below low normal Not Available [facility] Department [address] [place] [address], [address], 12/18/2022 06:16:28 12/18/19 23 12/17/2022 COMP. METAB OLIC PANEL (14) bilirubin, total 0.3 mg/dL 0.0-1. 2 Not Available [facility] Department [address] [place] [address], [address], 12/18/2022 06:16:28 12/18/19 23 12/17/2022 COMP. METAB OLIC PANEL (14) alkaline phosphatase 126 IU/L 44-121 above high normal Not Available [facility] [address] [place] [address], [address], 12/18/2022 06:16:28 12/18/19 23 12/17/2022 COMP. METAB OLIC PANEL (14) AST (SGOT) 20 IU/L 0-40 Not Available [facility] Department [address] [place] [address], [address], 12/18/2022 06:16:28 12/18/19 23 12/17/2022 COMP. METAB OLIC PANEL (14) ALT (SGPT) 22 IU/L 0-44 Not Available [facility] Department [address] [place], [address], 12/18/2022 06:16:28 12/18/19 23 12/18/2022 PROST ATE-S PECIF IC AG prostate specific Ag 2.1 NG/mL 0.0-4. 0 Jessica ECLIA metho dolog y. Accor ding to the Ameri can [employer] g[employer] iatio n, Serum PSA shoul d decre ase and remai n at undet ectab le level s after radic al prost atect sonny. The AUA defin es bioch emica l recur rence as an initi al PSA value 0.2 ng/mL or great er follo wed by a subse quent confi rmato ry PSA value 0.2 ng/mL or great er. Value s obtai mirta with diffe rent assay metho ds or kits canno t be used inter yoder eably . Resul ts canno t be inter prete d as absol cher-ae heights evide nce of the prese nce or absen ce of eloisa baeza se. Not Available [facility] ([facility]) [address] [facility], [place], [address], 12/18/2022 09:14:12 04/15/19 24 04/23/2023 COMPL IANCE DRUG CARLOS SIS, UR summary report (summary) FINAL ===== ===== ===== ===== ===== ===== ===== ===== ===== ===== ===== ===== ===== === TOXAS SURE COMP DRUG CARLOS SIS,U R ===== ===== ===== ===== ===== ===== ===== ===== ===== ===== ===== ===== ===== === Test Resul t Flag Units Drug Prese nt Spencer codon e 1391 ng/mg creat Spencer morph one 95 ng/mg creat Dihyd rocod eine 122 ng/mg creat Norhy droco done >2000 ng/mg creat Sourc es of hydro codon e inclu de sched uled presc ripti on medic ation s. Spencer morph one, dihyd rocod eine and norhy droco done are expec migdalia metab olite s of hydro codon e. Spencer morph one and dihyd rocod eine are also avail able as sched uled presc ripti on medic ation s. Gabap entin PRESE NT Baclo fen PRESE NT Cital opram PRESE NT Desme thylc brian pram PRESE NT Desme thylc biran pram is an expec migdalia metab olite of cital opram or the enant iomer ic form, escit alopr am. Aceta minop hen PRESE NT Metop rolol PRESE NT ===== ===== ===== ===== ===== ===== ===== ===== ===== ===== ===== ===== ===== === Test Resul t Flag Units Ref Range Creat inine 250 mg/dL >=20 ===== ===== ===== ===== ===== ===== ===== ===== ===== ===== ===== ===== ===== === Decla red Medic ation s: Medic ation list was not provi ded. ===== ===== ===== ===== ===== ===== ===== ===== ===== ===== ===== ===== ===== === For clini candace consu ltati on, pleas e call . ===== ===== ===== ===== ===== ===== ===== ===== ===== ===== ===== ===== ===== === Not Available [facility] ([facility]) [address] [facility], [place], [address], 04/23/2023 13:09:40 04/15/19 24 04/23/2023 COMPL IANCE DRUG CARLOS SIS, UR pdf . Not Available [facility] ([facility]) [address] [facility], [place], [address], 04/23/2023 13:09:40 05/06/19 25 05/12/2024 COMPL IANCE DRUG CARLOS SIS, UR summary report (summary) FINAL ===== ===== ===== ===== ===== ===== ===== ===== ===== ===== ===== ===== ===== === TOXAS SURE COMP DRUG CARLOS SIS,U R ===== ===== ===== ===== ===== ===== ===== ===== ===== ===== ===== ===== ===== === Test Resul t Flag Units Drug Prese nt Spencer codon e 1006 ng/mg creat Dihyd rocod eine 186 ng/mg creat Norhy droco done 814 ng/mg creat Sourc es of hydro codon e inclu de sched uled presc ripti on medic ation s. Dihyd rocod eine and norhy droco done are expec migdalia metab olite s of hydro codon e. Dihyd rocod eine is also avail able as a sched uled presc ripti on medic ation . Aceta minop hen PRESE NT Doxyl amine PRESE NT Dextr ometh orpha n PRESE NT Dextr orpha n/Lev orpha nol PRESE NT Dextr orpha n is an expec migdalia metab olite of dextr ometh orpha n, an over- the-c ounte r or presc ripti on cough suppr essan t. Dextr orpha n canno t be disti nguis hed from the sched uled presc ripti on medic ation levor phano l by the metho d used for carlos sis. Metop rolol PRESE NT ===== ===== ===== ===== ===== ===== ===== ===== ===== ===== ===== ===== ===== === Test Resul t Flag Units Ref Range Creat inine 71 mg/dL >=20 ===== ===== ===== ===== ===== ===== ===== ===== ===== ===== ===== ===== ===== === Decla red Medic ation s: Medic ation list was not provi ded. ===== ===== ===== ===== ===== ===== ===== ===== ===== ===== ===== ===== ===== === For clini candace consu ltati on, pleas e call . ===== ===== ===== ===== ===== ===== ===== ===== ===== ===== ===== ===== ===== === Not Available [facility] ([facility]) [address] [facility], [place], [address], 05/13/2024 06:20:07 05/06/19 25 05/12/2024 COMPL IANCE DRUG CARLOS SIS, UR pdf . Not Available [facility] ([facility]) [address] [facility], [place], [address], 05/13/2024 06:20:07 12/29/19 23 12/28/2022 CT, chest , w/o contr ast No observ ation record ed. [email or web address] [facility] [address] [place], [address], 01/03/2023 18:19:27 Result Notes None recorded. Problems Name Problem SNOMED Code Status Onset Date Resolution Date Notes Provider Name and Address Organization Details Recorded Time Chronic obstructi ve pulmonary disease 35495921 Active 2017 Not Available [facility] 3 05:42:13 Asthma 805251714 Active 2017 Not Available [facility] 3 05:42:13 Hyperlipi demia 73427019 Active 2017 Not Available [facility] 3 05:42:13 Anxiety disorder 931854820 Active 2017 Not Available [facility] 3 05:42:13 Chronic back pain 883940119 Active 2017 Not Available [facility] 3 05:42:12 Neuropath y 409537461 Active 2017 Not Available [facility] 3 05:42:13 Medicatio n monitorin g Active 2017 Not Available [facility] 3 05:42:13 Active immunizat ion Active 2017 Not Available [facility] 3 05:42:13 Calculus of kidney and ureter 580144365 Active 2018 Not Available [facility] 3 05:42:13 Pain of left hip joint 57047397625 9100 Active 2018 Not Available [facility] 3 05:42:13 Pain of left elbow joint 21061842710 436840 Active 2018 Not Available [facility] 3 05:42:13 Injury of left elbow region 45718252510 522531 Active 2018 Possible left tendon tear Not Available [facility] 3 05:42:12 Multiple joint pain 61798617 Active 2018 Not Available [facility] 3 05:42:13 Fracture of left rib 26998737149 917798 Active 2018 Not Available [facility] 3 05:42:12 Closed injury of head 28851717052 6 Active 2018 Not Available [facility] 3 05:42:13 Poor stream of urine 276237959 Active 2020 Not Available [facility] 3 05:42:13 Nocturia 005008377 Active 2020 Not Available [facility] 3 05:42:13 Complicat ed grieving 731460862 Active 2020 Not Available [facility] 3 05:42:13 Community acquired pneumonia 200277803 Active 2020 Not Available [facility] 3 05:42:13 History of atrial fibrillat ion 131680631 Active 11/2020 Not Available [facility] 3 05:42:13 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 500731864 Active 2021 Not Available [facility] 3 05:42:12 Pain of left shoulder joint 59712139662 598944 Active 2021 Not Available [facility] 3 05:42:13 Chronic bronchiti s 28211012 Active 2021 Not Available [facility] 3 05:42:13 Pain of left knee region 98793406728 4109 Active 2022 Not Available [facility] 3 05:42:13 Screening for malignant neoplasm of prostate Active 2022 Not Available [facility] 3 05:42:13 Screening for malignant neoplasm of colon done 17923108937 4101 Active 2022 Not Available [facility] 3 05:42:13 Coronary atheroscl erosis 407694148 Active 2023 S/P 4v CABG 12/30 Jose Post MD Attn: Accounting ,[address] [place], [address] , [facility] - [facility] 4 14:37:15 History of sepsis 74279416671 9100 Active 2023 1 Jose Post MD Attn: Accounting ,[address] [place], [address] , [place] [facility] 4 14:39:08 Dyspnea 220311346 Active 2023 Jose Post MD Attn: Accounting ,[address], [place], [address] , [place] [facility] 4 16:11:27 Notes:Some problems listed i n Document: #[id number] could not be added to this patient's chart. Please review this document and add these problems to the patient's chart manually as needed. Problem Notes None recorded. Procedures Surgical History None recorded. Imaging Results Imaging Date Name Status LastModified by Organiz ation Details LastModified Time 12/28/2022 CT, chest, w/o contrast completed [address] [place], [address], 01/03/2023 18:19:27 Procedure Notes None recorded. Medical Equipment None Reported. Allergies No known drug allergies Medications Name Sig Start Date Stop Date Status Note LastModified by Organization Details LastModified Time Prescriptio n - Change 07/17 completed Not Available Not Available Not Available Prescriptio n - Clarificati on 07/17 completed Not Available Not Available Not Available carisoprodo l 350 mg tablet Take 1 tablet 3 times a day by oral route. 05/09 completed Not Available Not Available Not Available cyclobenzap rine 10 mg tablet take 1 tab BID as needed 02/20 completed Not Available Not Available Not Available furosemide 40 mg tablet active Not Available Not Available Not Available theophyllin e 300 mg tablet Take 1 tablet every 12 hours by oral route. 01/30 completed Not Available Not Available Not Available venlafaxine ER 37.5 mg capsule,ext ended release 24 hr TAKE 1 CAPSULE BY MOUTH EVERY DAY. 10/05 completed Not Available Not Available Not Available prednisone 10 mg tablet TAKE ONE TABLET TWICE DAILY 07/17 completed Not Available Not Available Not Available ipratropium 0.5 mg-albutero l 3 mg (2.5 mg base)/3 mL nebulizatio n soln USE 3 ML VIA NEBULIZER EVERY DAY active Not Available Not Available No t Available albuterol sulfate 2.5 mg/3 mL (0.083 %) solution for nebulizatio n USE 3 ML VIA NEBULIZER THREE TIMES DAILY active Not Available Not Available No t Available ibuprofen 800 mg tablet Take 1 tablet 3 times a day by oral route with meals. 10/05 completed Not Available Not Available Not Available metoprolol tartrate 100 mg tablet TAKE 1 TABLET BY MOUTH EVERY 12 HOURS active Not Available Not Available No t Available hydrocodone 5 mg-acetamin ophen 325 mg tablet 12/30 completed Not Available Not Available Not Available meloxicam 15 mg tablet TAKE 1 TABLET BY MOUTH EVERY DAY active Not Available Not Available No t Available famotidine 40 mg tablet TAKE 1 TABLET BY MOUTH DAILY 07/17 completed Not Available Not Available Not Available prednisone 20 mg tablet active Not Available Not Available Not Available isosorbide mononitrate ER 30 mg tablet,exte nded release 24 hr active Not Available Not Available Not Available albuterol sulfate 4 mg tablet TAKE 2 TABLETS BY MOUTH TWICE DAILY active Not Available Not Available No t Available clopidogrel 75 mg tablet active Not Available Not Available Not Available hydrocodone 10 mg-acetamin ophen 325 mg tablet TAKE 1 TABLET BY MOUTH FOUR TIMES DAILY NEEDED active Not Available Not Available No t Available aspirin 81 mg tablet,danielle yed release TAKE 1 TABLET BY MOUTH ONCE DAILY active Not Available Not Available No t Available amitriptyli ne 50 mg tablet TAKE 1 TABLET BY MOUTH EVERY EVENING 10/05 completed Not Available Not Available Not Available theophyllin e ER 300 mg tablet,exte nded release,12 hr TAKE 1 TABLET BY MOUTH EVERY 12 HOURS active Not Available Not Available No t Available alprazolam 0.5 mg tablet Taper off as follows: 1 tab TID x 3 days, then 1 tab BID x 3 days then 0.5 tabs TID x 3 days then 0.5 tabs BID x 3 days, then 0.5 tabs qd x3 days then stop 02/20 completed Not Available Not Available Not Available potassium chloride ER 20 mEq tablet,exte nded release(par t/cryst) active Not Available Not Available Not Available amitriptyli ne 25 mg tablet 10/05 completed Not Available Not Available Not Available tamsulosin 0.4 mg capsule TAKE 2 CAPSULES BY MOUTH EVERY DAY active Not Available Not Available No t Available amitriptyli ne 10 mg tablet 10/05 completed Not Available Not Available Not Available baclofen 10 mg tablet TAKE 1 TABLET BY MOUTH THREE TIMES DAILY NEEDED active Not Available Not Available No t Available hydrocodone 7.5 mg-acetamin ophen 325 mg tablet TAKE 1 TABLET BY MOUTH EVERY 6 HOURS 07/17 completed Not Available Not Available Not Available prednisone 50 mg tablet TAKE 1 TABLET BY MOUTH EVERY DAY FOR 5 DAYS DIRECTED 07/17 completed Not Available Not Available Not Available nitroglycer in 0.[address] 1 TABLET UNDER THE TONGUE EVERY 5 MINUTES NEEDED FOR CHEST PAIN. MAY REPEAT DOSE EVERY 5 MINUTES UP TO 2 DOSES TOTAL active Not Available Not Available No t Available gabapentin 300 mg capsule TAKE 2 CAPSULES BY MOUTH THREE TIMES DAILY 02/09 completed Not Available Not Available Not Available diclofenac sodium 75 mg tablet,danielle yed release TAKE 1 TABLET BY MOUTH TWICE DAILY 07/17 completed Not Available Not Available Not Available montelukast 10 mg tablet TAKE 1 TABLET BY MOUTH EVERY DAY DIRECTED active Not Available Not Available No t Available gabapentin 100 mg capsule TAKE 1 CAPSULE BY MOUTH THREE TIMES DAILY 12/17 completed Not Available Not Available Not Available levofloxaci n 500 mg tablet 10/05 completed Not Available Not Available Not Available methylpredn isolone 4 mg tablets in a dose pack FOLLOW PACKAGE DIRECTION S 07/17 completed Not Available Not Available Not Available albuterol sulfate HFA 90 mcg/actuati on aerosol inhaler INHALE 2 PUFFS BY MOUTH FOUR TIMES DAILY active Not Available Not Available No t Available ferrous sulfate 325 mg (65 mg iron) tablet,danielle yed release TAKE 1 TABLET BY MOUTH DAILY WITH BREAKFAST active Not Available Not Available No t Available ondansetron 4 mg disintegrat ing tablet TAKE 1 TABLET BY MOUTH EVERY 8 HOURS NEEDED FOR NAUSEA AND VOMITING 07/17 completed Not Available Not Available Not Available fluticasone propionate 50 mcg/actuati on nasal spray,suspe nsion SHAKE LIQUID AND USE 1 SPRAY IN EACH NOSTRIL EVERY DAY DIRECTED active Not Available Not Available No t Available sertraline 50 mg tablet Take 1 tablet every day by oral route. 02/20 completed Not Available Not Available Not Available finasteride 5 mg tablet TAKE 1 TABLET BY MOUTH EVERY DAY WITH MEALS 07/17 completed Not Available Not Available Not Available amoxicillin 875 mg-potassiu m clavulanate 125 mg tablet active Not Available Not Available Not Available ceftriaxone 2 gram solution for injection 04/25 completed Not Available Not Available Not Available oxycodone 5 mg tablet active Not Available Not Available No t Available escitalopra m 10 mg tablet TAKE 1 TABLET BY MOUTH EVERY DAY active Not Available Not Available No t Available rosuvastati n 20 mg tablet active Not Available Not Available Not Available metoprolol tartrate 25 mg tablet active Not Available Not Available No t Available Spiriva with HandiHaler 18 mcg and inhalation capsules INHALE THE CONTENTS OF 1 CAPSULE VIA INHALATIO N DEVICE EVERY DAY active Not Available Not Available No t Available Symbicort 160 mcg-4.5 mcg/actuati on HFA aerosol inhaler INHALE 2 PUFFS BY MOUTH TWICE DAILY active Not Available Not Available No t Available Symbicort 80 mcg-4.5 mcg/actuati on HFA aerosol inhaler INHALE 2 PUFFS BY MOUTH TWICE DAILY. RINSE AND SPIT AFTER USE 07/17 completed Not Available Not Available Not Available Xarelto 20 mg tablet 07/17 completed Not Available Not Available Not Available Vitals Date Recorded Body height Body mass index (BMI) Body weight Oxygen saturation Oxygen saturation in Arterial blood by Pulse oximetry Heart rate Systolic blood pressure Diastolic blood pressure Provider Name and Address Organization Details Last Updated DateTime 3 177.8 cm 30.9 kg/m2 34951.8 g 96 % 96 % 93 /min 124 mm[Hg] 85 mm[Hg] Linda Piper [place] [facility] 3 16:03:34 Date Recorded Body height Body mass index (BMI) Body weight Heart rate Body temperature Oxygen saturation Oxygen saturation in Arterial blood by Pulse oximetry Systolic blood pressure Diastolic blood pressure Provider Name and Address Organization Details Last Updated DateTime 4 177.8 cm 31.9 kg/m2 330979. 51 g 67 /min 98.1 [degF] 97 % 97 % 128 mm[Hg] 74 mm[Hg] Jes Richmond [place] [facility] 4 16:46:03 Date Recorded Body height Oxygen saturation Oxygen saturation in Arterial blood by Pulse oximetry Body temperature Heart rate Body mass index (BMI) Body weight Systolic blood pressure Diastolic blood pressure Provider Name and Address Organization Details Last Updated DateTime 4 177.8 cm 97 % 97 % 98 [degF] 86 /min 31.1 kg/m2 67348.5 4 g 148 mm[Hg] 86 mm[Hg] Jes Richmond MA [facility] 4 14:48:42 Date Recorded Body height Body mass index (BMI) Body weight Oxygen saturation Oxygen saturation in Arterial blood by Pulse oximetry Heart rate Systolic blood pressure Diastolic blood pressure Provider Name and Address Organization Details Last Updated DateTime 4 177.8 cm 31.4 kg/m2 69127.7 3 g 98 % 98 % 61 /min 130 mm[Hg] 80 mm[Hg] Jes Richmond MA [facility] 4 16:40:19 Date Recorded Body height Body mass index (BMI) Body weight Body temperature Heart rate Oxygen saturation Oxygen saturation in Arterial blood by Pulse oximetry Systolic blood pressure Diastolic blood pressure Provider Name and Address Organization Details Last Updated DateTime 4 177.8 cm 28.6 kg/m2 73434.8 8 g 98.6 [degF] 117 /min 97 % 97 % 112 mm[Hg] 70 mm[Hg] Cheyanne Gomez MA [facility] 4 13:45:22 Social History Question Answer Notes LastModified by Leetchiizat ion Details LastModified Time Tobacco Smoking Status Former Smoker Quit a year ago Jes Richmond MA [facility] 07/15/2017 14:44:58 What Was The Date Of Your Most Recent Tobacco Screening? 02/10/2024 [email or web address] Information not available 02/10/2024 Has Tobacco Cessation Counseling Been Provided? No Information not available 04/17/2022 How Many Years Have You Smoked Tobacco? 35 Information not available 07/15/2017 Do You Or Have You Ever Used Any Other Forms Of Tobacco Or Nicotine? No Information not available 04/17/2022 Sex: Male Functional Status None recorded. Mental Status None recorded. Family History Relationship Description Onset Age of this Age Resolved Age Notes LastModified by Organization Details LastModified Time Father Hypertensive disorder [email or web address] Not available 2017 14:44:39 Mother Hypertensive disorder [email or web address] Not available 2017 14:44:39 Medical History Condition Response Anxiety Disorder Y COPD Y Asthma Y Allergies Y Immunizations Vaccine Type Date Status Note Provider Royce jones and Address Organization Details Recorded Time COVID-19 vaccine, vector-nr, rS-Ad26, PF, 0.5 mL 1 completed Not Available [facility] 12/31/2022 05:42:13 Influenza, split virus, quadrivalent, preservative 8 completed Not Available [facility] 04/25/2019 02:36:33 COVID-19, mRNA, LNP-S, PF, 30 mcg/0.3 mL dose, sandrine-sucrose 2 completed Violeta Chavarria LPN null, [place] [facility] 04/26/2021 11:28:35 Past Encounters Encounter ID Performer Location Encounter Start Date Encounter Closed Date Diagnosis/Indication Diagnosis SNOMED-CT Code Diagnosis ICD10 Code Diagnosis Note [id number] MD Nessa Zambrano (Adult Med) [address] [place] [address] [phone] 0 07/15/2017 14:21:42 07/15/2017 16:29:52 Chronic obstructive pulmonary disease 94483634 J44.9 Asthma 745800942 J45.90 9 Anxiety disorder 3507856 06 F41.9 Will taper off alprazolam Hyperlipidemia 40887938 E78.2 Chronic back pain 098424 002 M54.17 Neuropathy 632005329 G62 .9 Medication monitoring 39 0982379 Z51.81 [id number] MD Nessa Zambrano (Adult Med) [address] [place] [address] [id number] 0 10/16/2017 17:12:09 10/17/2017 11:05:21 Chronic back pain 874521814 M54.17 Add muscle relaxant. pt will call re benefit. Consider giving full TID regimen for hydrocodon e [id number] MD Nessa Faustin (Adult Med) [address] [place] [address] 77622-602 0 01/30/2018 15:44:57 01/31/2018 10:56:21 Chronic low back pain 544460006 M54.5 F/U with his PCP DR. Jess Post. By the way he wants his prednisone , albuterol and theophylli n refilled as well. 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 Chronic ob structive pulmonary disease 85672946 J44.9 F/U with his CRIBBER Dr. Jess Post. Nicotine dependence 5629 4008 F17.478 [id number] MD Nessa Zambrano (Adult Med) [address] [place] [address] 08847-127 0 02/20/2018 11:17:29 02/20/2018 13:54:08 Chronic back pain 682394161 G89.29 Anxiety disorder 2892975 06 F41.9 Will taper off alprazolam Hyperlipidemia 32125898 E78.2 Asthma 430957595 J45.90 9 Chronic ob structive pulmonary disease 59961407 J44.9 Active immunization 3387 9002 Z23 [id number] MD Nessa Zambrano (Adult Med) [address] [place] [address] 85496-289 0 04/09/2018 11:49:41 04/10/2018 09:30:01 Chronic back pain 866839477 G89.29 Will increase back to 90 tabs Chronic ob structive pulmonary disease 90885837 J44.9 Hyperlipidemia 03607978 E78.2 Asthma 104633760 J45.90 9 [id number] MD Nessa Zambrano (Adult Med) [address] [place] [address] [id number] 0 06/19/2018 11:59:00 06/20/2018 09:28:24 Calculus of kidney and ureter 465628711 N20.2 Needs referral for Right renal stone for lthotrypep Pain of le ft hip joint 3930395863 63661 M25.552 Chronic back pain 248358 002 G89.29 [id number] MD Nessa Zambrano (Adult Med) [address] [place] [address] 98230-018 0 08/18/2018 16:22:54 08/18/2018 17:46:02 Pain of left hip joint 9408681990 96385 M25.552 Calculus o f kidney and ureter 861904632 N20.2 Needs referral for Right renal stone for lthotrypsi Chronic back pain 976358 002 G89.29 Hyperlipidemia 88366803 E78.2 Chronic ob structive pulmonary disease 10528767 J44.9 Injury of left elbow region 6078575594 7511729 S59.902A [id number] MD Nessa Zambrano (Adult Med) [address] [place] [address] 13417-601 0 09/22/2018 16:42:01 09/23/2018 09:29:04 Chronic obstructive pulmonary disease 03387270 J44.9 Hyperlipidemia 80925684 E78.2 Chronic back pain 480936 002 G89.29 Pain of le ft hip joint 3464031289 84625 M25.552 Injury of left elbow region 0869915349 2061242 S59.902A [id number] MD Nessa Zambrano (Adult Med) [address] [place] [address] [id number] 0 10/30/2018 16:42:13 10/30/2018 18:27:42 Chronic back pain 775871777 G89.29 Chronic ob structive pulmonary disease 94609885 J44.9 Multiple joint pain 3567 8005 M25.50 Pain in left knee 908964 1259 70343 M25.864 [id number] MD Nessa Zambrano (Adult Med) [address] [place] [address] 28268-226 0 12/31/2018 15:25:35 01/01/2019 09:47:40 Asthma 143309808 J45.504 [id number] MD Nessa Zambrano (Adult Med) [address] [place] [address] [id number] 0 02/25/2019 14:34:06 03/10/2019 10:06:24 Multiple joint pain 04972957 M25.50 Chronic ob structive pulmonary disease 72872707 J44.9 Fracture of left rib 696 6764344 4971219 S22.32XA Injury of left elbow region 2646783648 0696608 S59.902A Chronic back pain 199466 002 G89.29 Closed injury of head 45 60685418 06 S09.90XA [id number] MD Nessa Zambrano (Adult Med) [address] [place] [address] 96614-270 0 04/20/2019 15:14:20 04/21/2019 12:54:39 Chronic back pain 693561830 G89.29 Chronic ob structive pulmonary disease 78690776 J44.9 Hyperlipidemia 81388786 E78.2 Multiple joint pain 3567 8005 M25.50 Pain in left knee 611042 9344 66768 M25.562 Pain of le ft hip joint 5477417292 75195 M25.552 Anxiety disorder 2225977 06 F41.9 Will taper off alprazolam [id number] MD Nessa Zambrano (Adult Med) [address] [place] [address] 47100-701 0 07/28/2019 15:19:43 07/30/2019 18:21:13 Chronic back pain 579791323 G89.29 Pt assured that [facility] is major medical center and is expected to provide him with superior care. Pt understand s that [facility] to [facility] responsibl e for his primary care needs. [id number] MD Nessa Zambrano (Adult Med) [address] [place] [address] [id number] 0 10/15/2019 10:22:51 10/20/2019 20:02:26 Chronic back pain 873529658 G89.29 Slowly decrease pill count [id number] MD Nessa Zambrano (Adult Med) [address] [place] [address] 82395-350 0 05/09/2020 08:28:19 05/10/2020 09:02:46 Poor stream of urine 631759803 R39.12 Nocturia 691460523 R35.1 [id number] MD Nessa Zambrano (Adult Med) [address] [place] [address] 06625-928 0 10/05/2020 15:44:20 10/06/2020 07:25:21 Multiple joint pain 59352901 M25.50 Neuropathy 897589102 G62 .9 Poor stream of urine 162 517568 R39.12 Increase tamsulosin Chronic ob structive pulmonary disease 04880867 J44.9 Increase Symbicort due to wheezing 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 [id number] MD Nessa Zambrano (Adult Med) [address] [place] [address] 50018-312 0 12/27/2020 12:40:19 12/28/2020 09:23:30 Community acquired pneumonia 742140237 J18.9 History of atrial fibrillation 582650473 Z86.79 Chronic ob structive pulmonary disease 26966752 J44.9 Chronic back pain 840712 002 G89.29 Increase back to 110 tabs/ mth [id number] MD Nessa Zambrano (Adult Med) [address] [place] [address] 28827-876 0 04/25/2021 15:24:07 04/26/2021 07:45:47 Chronic obstructive pulmonary disease 30727172 J44.9 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 752468248 D49.1 F/U with pulmonary Multiple joint pain 3567 8005 M25.50 History of atrial fibrillation 979509248 Z86.79 Hyperlipidemia 15266368 E78.2 Chronic back pain 791146 002 G89.29 Lilliam Post is out of the officeILPM P reviewedUD S 12/15/2020g reement 12/25/2017H e needs a new agreementI have prescribed Hydrocodon e #[id number] LUIS DANIEL [place] (Peds) [address] [place] [address] 95565-288 0 04/26/2021 11:05:01 05/08/2021 05:13:10 Administration of SARS-CoV-2 antigen vaccine 186921238 Z23 [id number] MD Nessa Zambrano (Adult Med) [address] [place] [address] 20350-486 0 10/03/2021 15:41:23 10/04/2021 11:13:47 Chronic back pain 212228591 G89.29 Add Gabapentin Chronic ob structive pulmonary disease 64861218 J44.9 Medication monitoring 39 9941523 Z51.81 Poor stream of urine 162 591064 R39.12 Increase tamsulosin . Add finasterid e [id number] MD Nessa Zambrano (Adult Med) [address] [place] [address] 96382-501 0 12/21/2021 14:37:38 12/22/2021 11:28:49 Chronic obstructive pulmonary disease 71833515 J44.9 F/U with pulmonary Hyperlipidemia 23733917 E78.2 Chronic back pain 347106 002 G89.29 Chronic bronchitis 01761 004 J42 Pain of le ft shoulder joint 2076346360 3998152 M25.362 [id number] MD Nessa Zambrano (Adult Med) [address] [place] [address] 86045-885 0 04/17/2022 15:18:55 04/18/2022 14:40:18 Chronic obstructive pulmonary disease 02660113 J44.9 F/U with pulmonary Asthma 514659849 J45.90 9 Chronic back pain 795760 002 G89.29 Pain of le ft knee region 6743613895 66434 M25.342 [id number] MD Nessa Zambrano (Adult Med) [address] [place] [address] 91977-375 0 07/16/2022 16:16:31 07/17/2022 11:47:36 Obesity 217327736 E66.9 Calculus o f kidney and ureter 260594943 N20.2 [id number] MD Nessa Zambrano (Adult Med) [address] [place] [address] 65798-614 0 10/16/2022 16:53:31 11/07/2022 14:51:53 Obesity 092376890 E66.9 Chronic back pain 225016 002 G89.29 [id number] MD Nessa Zambrano (Adult Med) [address] [place] [address] 27423-784 0 12/17/2022 15:51:51 12/18/2022 12:29:38 Chronic back pain 307840790 G89.29 Hyperlipidemia 17750938 E78.2 Screening for malignant neoplasm of prostate 960454610 Z12.5 Screening for malignant neoplasm of colon done 4852341182 53174 Z12.11 Wants to wait Calculus o f kidney and ureter 893093359 N20.2 Chronic ob structive pulmonary disease 72116045 J44.9 F/U with pulmonary [id number] MD Nessa Zambrano (Adult Med) [address] [place] [address] 29808-240 0 04/15/2023 15:42:25 04/19/2023 16:35:01 Obesity 705539452 E66.9 Asthma 760049251 J45.90 9 Chronic ob structive pulmonary disease 80539552 J44.9 F/U with pulmonary History of atrial fibrillation 989757935 Z86.79 Medication monitoring 39 0802043 Z51.81 [id number] Jose Post MD [facility] (Adult Med) [address] [place] [address] 42869-608 0 07/18/2023 14:39:57 07/19/2023 08:25:31 Obesity 124331386 E66.9 Chronic ob structive pulmonary disease 86547412 J44.9 F/U with pulmonary History of atrial fibrillation 946065295 Z86.79 Hyperlipidemia 03358239 E78.2 Multiple joint pain 3567 8005 M25.50 Pain of le ft knee region 2747259210 54940 M25.562 Pain of le ft shoulder joint 6360193650 0491442 M25.512 Chronic back pain 938404 002 G89.29 [id number] Jose Post MD [facility] (Adult Med) [address] [place] [address] 18450-901 0 10/17/2023 16:03:09 10/18/2023 16:10:54 Obesity 863606141 E66.8 Chronic back pain 067690 002 G89.29 Chronic ob structive pulmonary disease 59048680 J44.9 F/U with pulmonary Pain of le ft shoulder joint 1862344230 5855577 M25.512 F/u orthopedic s [id number] Jose Post MD [facility] (Adult Med) [address] [place] [address] 14952-941 0 02/10/2024 12:16:26 02/11/2024 16:02:38 Coronary atherosclerosis 108212333 I25.84 History of sepsis 796324 2388 77266 Z86.19 Dyspnea 704781857 R06.00 advised pt to return to ED. He agreed Health Concerns Section Related Observation LastModified by Organization Detai ls LastModified Time None Recorded Concern Status LastModified by Organization Details LastModified Time None Recorded Advance Directives Directive None Recorded Payers Encounter Date Sequence Insurance Name Policy Number Policy Lim Covered Member ID Lim Member ID Guarantor Name 12/17/2022 1 [employer] (MEDICARE RE[place]ACEMENT HMO) [id number] Quintin Thacker [id number] Quintin [place]ford 12/17/2022 2 [place] WHEN MED[place]ARE OR MEDICARE REPLACEMENT PRIMARY) Quintin Oglesbyford [id number] Quintin Ogles[place]ford 04/15/2023 2 [place] REPLACEMENT [place]IMARY) Quintin Oglesbyford [id number] Quintin Oglesbyford 04/15/2023 1 [facility] (MEDICARE REPLACEMENT/A DVANTAGE - HMO) [id number] Quintin Car Kedar [id number] Quintin Ogles[place]ford 07/18/2023 2 [place]IC[place] REPLACEMENT [place]IMARY) Quintin Oglesbyford [id number] Quintin Oglesbyford 07/18/2023 1 [facility] (MEDICARE REPLACEMENT/A DVANTAGE - HMO) [id number] Quintin Car Kedar [id number] Quintin Oglesbyford 10/17/2023 2 [place]IC[place] REPLACEMENT PRIMARY) Quintin Kedar [id number] Quintin Oglesbyford 10/17/2023 1 [facility] (MEDICARE REPLACEMENT/A DVANTAGE - HMO) [id number] Quintin Car Kedar [id number] Quintin Ogles[place]ford 02/10/2024 2 [place] OR MEDICARE REPLACEMENT [place]IMARY) Quintin Oglesbyford [id number] Quintin Oglesbyford 02/10/2024 1 [facility] (MEDICARE REPLACEMENT/A DVANTAGE - HMO) [id number] Quintin Car Kedar [id number] Quintin Oglesbyford Notes Date Note Type Note Provider Name and Address Organization Details Recorded Time 12/17/2022 text/html No pain relief f rom gabapentin 100 mg TID. But he sleeps better Will resend rx for 300 mg dose. Not open at present to epidural procedure or surgery. Left knee brace has provided good relief. Thinks he is ready to stop antidepressant Jose Post MD Attn: [address]ing[address] , [place], [address], [facility] 12/17/2022 16:42:17 04/15/2023 text/html Here for F/U Jose Post MD Attn: [address]ing[address] , [place], [address], [facility] 04/15/2023 17:13:00 07/18/2023 text/html Here for f/u. Wa nts to be seen at a different orthopedist's office. Jose Post MD Attn: [address]ing[address] , [place], [address], [facility] 07/18/2023 15:17:12 10/17/2023 text/html Here for f/u. Issa s seen orthopedic surgery. Has significant rotator cuff tear. Jose Post MD Attn: Accounting[address] , [place], [address], [facility] 10/17/2023 17:18:31 02/10/2024 text/html Pt accompanied b y his daughter. 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 Here is SOB especially when he lies flat and has persistent swelling and pain in both legs. He is unclear about f/u for CTS, cardiology and ID.(Hospital records unavailable at time of visit due to internet malfunction) Jose Post MD Attn: [address]ing[address] , [place], [address], [facility] 02/10/2024 16:12:47
--- OUTSIDE RECORDS SUMMARY | 2024-07-07 01:44 | XMS_ITS | Referral Summary ---
Author Organization [facility] [address] Address [address] [place] [address] Care Team Providers Care Water Pump Installer Name Role Phone Jose Post MD Primary Care Provider Digna Junior MD Unavailable [phone] Rajiv Melchor MD Unavailable Miscellaneous, Not In File Unavailable Unava ilable Encounters Date Type Department Care Team Description 05/15/2024 Telephone [facility] Pulmonary at [address] [place] [address] Pam Mckenzie LPN Treatment Plan Update 04/29/2024 9:00 AM [employer] Home Care Visit [address] [place] [address] Bria Perea OASIS DISCHARGE 04/22/2024 11:00 AM [employer] Home Care Visit [address] [place] [address] Bria Perea HOME VISIT 04/15/2024 12:30 PM [employer] Home Care Visit [address] [place] [address] Bria Perea SN HOME VISIT 04/09/2024 4:00 PM [employer] Home Care Visit [address] [place] [address] Dee Goss LPN SN HOME VISIT from Last 3 Months Allergies No known active allergies Medications albuterol (PROVENTIL,VENTOL IN) 4 mg tabletIndications :Bronchospasm Prevention Take 2 tablets (8 mg total) by mouth 2 (two) times a day 01/04/20 21 Active fluticasone propionate (FLONASE) 50 mcg/actuation nasal sprayIndications: Allergic Rhinitis Administer 1 spray into each nostril daily as needed 01/09/20 21 Active tamsulosin (FLOMAX) 0.4 mg extended release capsuleIndication s:benign prostatic hyperplasia with lower urinary tract sx tamsulosin 0.4 mg capsule TAKE 2 CAPSULES BY MOUTH EVERY DAY Active oxygenIndications :Dyspnea 3 L/min Active Breyna 160-4.5 mcg/actuation inhalerIndication s:Bronchospasm Prevention with COPD Inhale 2 puffs 2 (two) times a day 04/14/19 24 Active gabapentin (NEURONTIN) 300 mg capsuleIndication s:Neuropathic Pain Take 2 capsules (600 mg total) by mouth 3 (three) times a day Active ipratropium-albut Teodoro (DUO-NEB) 0.5-2.5 mg/3 mL nebulizer solutionIndicatio ns:Chronic Obstructive Pulmonary Disease with Bronchospasms Take 0.5 mL by nebulization every 6 (six) hours Active aspirin 81 mg enteric coated tabletIndications :Myocardial Reinfarction Prevention Take 1 tablet (81 mg total) by mouth daily 30 tablet 11 12/11/19 24 025 Active acetaminophen 500 mg capsuleIndication s:Pain Take 2 capsules (1,000 mg total) by mouth every 6 (six) hours as needed for pain or headaches 01/05/20 24 Active clopidogreL (PLAVIX) 75 mg tabletIndications :Myocardial Reinfarction Prevention TAKE 1 TABLET(75 MG) BY MOUTH DAILY 90 tablet 1 01/05/20 24 Active naproxen (ALEVE) 220 mg tabletIndications :Anti-inflammator y Take 2 tablets (440 mg total) by mouth every 12 (twelve) hours as needed for pain or fever Active baclofen (LIORESAL) 10 mg tabletIndications :Muscle Spasticity of Spinal Origin Take 1 tablet (10 mg total) by mouth 3 (three) times a day Active furosemide (LASIX) 40 mg tabletIndications :Edema Take 1 tablet (40 mg total) by mouth daily 90 tablet 01/30/20 Active rosuvastatin (CRESTOR) 20 mg tabletIndications :coronary artery disease Take 1 tablet (20 mg total) by mouth daily 90 tablet 02/14/20 Active metoprolol tartrate (LOPRESSOR) 25 mg immediate release tablet Take 1 tablet (25 mg total) by mouth 2 (two) times a day 02/03/20 Active theophylline (THEODUR) 300 mg 12 hr tablet Take 1 tablet (300 mg total) by mouth every 12 (twelve) hours 02/02/20 Active meloxicam (MOBIC) 15 mg tablet Take 1 tablet (15 mg total) by mouth daily 02/10/20 Active HYDROcodone-aceta minophen (NORCO) 10-325 mg per tablet Take 1 tablet by mouth every 4 (four) hours as needed for pain 02/02/20 Active montelukast (SINGULAIR) 10 mg tablet TAKE 1 TABLET(10 MG) BY MOUTH EVERY NIGHT 30 tablet 11 03/09/20 Active Active Problems Problem Noted Date Diagnosed Date Pleural effusion 02/19/2024 Assessment & Plan (02/19/2024 12:18 PM [employer]): Stat CT of the chest today to reassess as he is having significant difficulty breathing. His vital signs remain stable, he may ultimately require a therapeutic thoracentesis Physical deconditioning 01/23/2024 Severe sepsis with septic shock (CODE) 4 Coronary artery disease (CAD) excluded 4 CAD, multiple vessel 12/30/2023 Coronary artery disease of n ative heart with stable angina pectoris 12/19/2023 Chest pain 11/26/2023 Abnormal findings on diagnos tic imaging of heart and coronary circulation 11/26/2023 Atypical chest pain 10/31/2023 Dyspnea on exertion 08/07/2023 Assessment & Plan (08/07/2023 11:41 AM CDT): Relatively stable although he has restarted theophylline This is multifactorial and I am certain deconditioning, pain and age-related decline are contributing Continue maintenance inhaled therapy Angina pectoris, unspecified 08/07/2023 Assessment & Plan (08/07/2023 11:44 AM CDT): Significantly increased in frequency He does follow with a airborne weapons technical manager, last EKG was on 08/04/2023 and revealed sinus rhythm with a bundle-branch block Echocardiogram as ordered above He is aware of signs and symptoms that require urgent evaluation Chronic respiratory failure with hypoxia, on home O2 therapy 08/07/2023 Assessment & Plan (02/19/2024 12:17 PM [employer]): Continue supplemental oxygen with all sleep Discussed the risks of hypoxia Consider 6 minute walk testing Assessment & Plan (08/07/2023 1:11 PM CDT): Continue supplemental oxygen with all sleep Discussed the risks of hypoxia Chest mass 08/03/2022 Gastro-esophageal reflux disease with esophagiti s 07/17/2022 Arthralgia of left knee 12/28/2021 Osteoarthritis of left knee 12/28/2021 Pain in joint of left shoulder 12/21/2021 Chronic bronchitis 12/21/2021 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 12/12/2021 Acute exacerbation of chronic obstructive airway s disease 09/29/2021 Lung mass 05/03/2021 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 Discussed indications for use. Previous IgE and allergy testing were abnormal. No biologics or SCIT I do not recommend the use of theophylline We have discussed signs and symptoms that would require earlier evaluation or change to his plan of care Assessment & Plan (08/07/2023 11:40 AM CDT): Remain on Breyna and Spiriva We have discussed duplication of therapy and I do not recommend DuoNebs for nebulizer, rather albuterol as needed only. Discussed indications for use. Previous IgE and allergy testing were abnormal however she had not had evaluation for biologics or SCIT Will request further records I do not recommend the use of theophylline We have again discussed chronic prednisone use, I do not think he needs this for advanced lung disease although I am certain it would help with his chronic pain He should keep follow-up with [facility] Spinal stenosis 02/02/2021 Community acquired pneumonia 12/27/2020 Complicated grieving 10/05/2020 Dependence on supplemental oxygen 08/05/2020 History of severe acute resp iratory syndrome coronavirus 2 (SARS-CoV-2) disease 08/05/2020 Dyspnea on exertion 08/05/2020 Nocturia 05/08/2020 Poor urinary stream 05/08/2020 Degenerative spondylolisthesis 05/27/2019 Closed injury of head 02/24/2019 Fracture of rib of left side 02/24/2019 Multiple joint pain 10/30/2018 Arthralgia of left elbow 08/18/2018 Injury of left elbow region 08/18/2018 Overview (09/06/2023): Possible left tendon tear Kidney stone 07/24/2018 Calculus of kidney and ureter 06/19/2018 Pain of left hip joint 06/19/2018 Anxiety disorder 07/15/2017 Back pain 07/15/2017 Hyperlipidemia 07/15/2017 Neuropathy 07/15/2017 Asthma 07/15/2017 Chronic obstructive lung disease 07/15/2017 Resolved Problems Problem Noted Date Diagnosed Date Resolved Date History of elevated blood pr essure while in hospital 02/20/2021 10/05/2022 Social History Tobacco Use Types Packs/Day Years Used Date Smoking Tobacco: Some Days Cigarettes Started: 1967; Last attempted to quit: 02/02/2019 Smokeless Tobacco: Never Tobacco Cessation:Ready to Q uit: Not Asked Comments:Quit in 2019, but daughter gave him a pack this week and he smoked it to help his anxiety, has one left and will stop again after he smokes it OASIS D0700: Social Isolation Answer Da te Recorded Frequency of experiencing loneliness or isolatio n Never 04/29/2024 OASIS A1250: Transportation Answer Date Recorded Lack of Transportation (Medical) No 04/29/2024 Lack of Transportation (Non-Medical) No 04/29/2024 Patient Unable or Declines to Respond No 04/29/2024 OASIS B1300: Health Literacy Answer Timothy e Recorded Frequency of needing help to read materials from doctor or pharmacy Never 04/29/2024 [facility] Utilities Answer Date Recorded In the past 12 months has th e [employer], gas, oil, or water [employer] threatened to shut off services in your home? No 01/24/2024 Social Connection and Isolation Panel [NHANES] A nswer Date Recorded In a typical week, how many times do you talk on the phone with family, friends, or neighbors? Three times a week 01/24/2024 How often do you get togethe r with friends or relatives? Three times a week 01/24/2024 How often do you attend chur ch or denominational services? Never 01/24/2024 Do you belong to any clubs o r organizations such as religious groups, unions, fraternal or athletic groups, or school groups? No 01/24/2024 How often do you attend meet ings of the clubs or organizations you belong to? Never 01/24/2024 Are you , , di vorced, , never , or living with a partner? Never 01/24/2024 AUDIT-C Answer Date Recorded Q1: How often do you have a drink containing alcohol? Never 01/24/2024 Q2: How many drinks containi ng alcohol do you have on a typical day when you are drinking? Patient does not drink Q3: How often do you have si x or more drinks on one occasion? Never 01/24/2024 Overall Financial Resource Strain (CARDIA) Answe r Date Recorded How hard is it for you to pa y for the very basics like food, housing, medical care, and heating? Not very hard 01/24/2024 PHQ-2 Answer Date Recorded Patient Health Questionnaire-2 Score 0 01/30/2024 Hunger Vital Sign Answer Date Recorded Within the past 12 months, y ou worried that your food would run out before you got the money to buy more. Never true 01/24/20 24 Within the past 12 months, t he food you bought just didn't last and you didn't have money to get more. Never true 01/24/2024 PRAPARE - Transportation Answer Date Re corded In the past 12 months, has l ack of transportation kept you from medical appointments or from getting medications? No 01/07 In the past 12 months, has l ack of transportation kept you from meetings, work, or from getting things needed for daily living? No 01/30/2024 PHQ-9 Answer Date Recorded Patient Health Questionnaire-9 Score 0 01/30/2024 Housing Stability Vital Sign Answer Timothy e Recorded In the last 12 months, was t here a time when you were not able to pay the mortgage or rent on time? No 01/24/2024 In the past 12 months, how m any times have you moved where you were living? 0 01/24/2024 At any time in the past 12 m [facility], were you homeless or living in a retirement (including now)? No 01/24/2024 Personal Safety Answer Date Recorded Have you ever been in or are you currently in a harmful physical or emotional relationship or is someone making you feel afraid or unsafe? Denies 01/23/2024 Sex and Gender Information Value Date Recorded Sex Assigned at Not on file Legal Sex Male 7:50 PM [employer] Gender Identity Male 02/02/2021 11:29 PM CDT Sexual Orientation Straight 02/02/2021 11 :29 PM CDT Last Filed Vital Signs Vital Sign Reading Time Taken Comments Blood Pressure 102/68 04/29/2024 11:46 AM [employer] Pulse 80 04/29/2024 11:46 AM [employer] Temperature 36.8 C (98.3 F) 04/29/2024 11:46 AM [employer] Respiratory Rate 20 04/29/2024 11:46 AM [employer] Oxygen Saturation 98% 04/29/2024 11:46 AM [employer] Inhaled Oxygen Concentration - - Weight 92.3 kg (203 lb 8 oz) 02/19/2024 9:48 AM [employer] Height 177.8 cm (5' 10 ) 02/19/2024 9:48 AM [employer] Body Mass Index 29.2 02/19/2024 9:48 AM [employer] Plan of Treatment Not on file Medical Devices Implanted Type Area Leather Cutter Device Identifier Shelf Expiration Date Model / Serial / Lot [employer] Plate Bone Low Profile 6 Hole H Shape Sternum Ti 115.102.06 - [id number] Implanted:Qty: 1 on 12/30/2023 by Digna Junior MD at [facility] Plate N/A: Sternum [employer] 115.102.06 / / [employer] Plate Bone Low Profile 4 Hole Box Sternum Ti 115.103.04 - [id number] Implanted:Qty: 1 on 12/30/2023 by Digna Junior MD at [facility] Plate N/A: Sternum [employer] 115.103.04 / / [employer] Plate Bone Low Profile 6 Hole O Concave Sternum Ti 115.604.06 - [id number] Implanted:Qty: 1 on 12/30/2023 by Digna Junior MD at [facility] Plate N/A: Sternum [employer] 115.604.06 / / [employer] Screw Bone Slf Drl Full Thread Locking 3.5x18mm Ti 100.035.18 - [id number] Implanted:Qty: 16 on 12/30/2023 by Digna Junior MD at [facility] Screw N/A: Sternum [employer] 100.035.18 / / [employer] Device Closure Vascade Od5 Fr Femoral Artery [id number] - [id number] Implanted:Qty: 1 on 12/11/2023 by Johnathan Bullock MD at [facility] [employer] 08/14/2025 [id number] / / [id number] Procedures Procedure Name Priority Date/Time Associated Diagnosis Comments CTA ABDOMINAL AORTA AND BILATERAL ILIOFEMORAL RUNOFF ED 01/10/2024 10:24 AM CDT from Last 3 Months or Most Recently Relevant to Health Maintenance Results * CTA Abdominal Aorta And Bilateral Iliofemoral Runoff (01/10/2024 10:24 AM CDT) Anatomical Region Laterality Modality Body Bilateral Computed Tomogra phy 01/10/2024 10:3 5 AM CDT Impressions 01/10/2024 10:35 AM CDT 1. No flow-limiting arterial stenosis or aneurysm. 2. Asymmetric subcutaneous fat stranding in the right lower extremity at the level of the mid thigh extending to the ankle is nonspecific and may represent asymmetric edema. Cellulitis considered less likely. Evaluation of the lower extremity venous structures is limited on this examination. If clinical concern for deep venous thrombosis, may consider right lower extremity venous Doppler examination. 3. Additional chronic or incidental findings as above. Electronically signed by: Pancho Carr II, D.O. Narrative 01/10/2024 10:35 AM CDT EXAMINATION: CT ANGIOGRAPHY OF THE ABDOMEN, PELVIS, AND LOWER EXTREMITIES WITH CONTRAST HISTORY: Claudication and leg ischemia. TECHNIQUE: CT angiography of the abdomen, pelvis, and lower extremities was performed following the uneventful intravenous administration of 119 ml Optiray-350. Vascular 3D images were generated on a dedicated workstation and also reviewed. FINDINGS: 02/24/2022. VASCULAR FINDINGS: Aorta and branch vessels: Mild atherosclerotic calcifications in the abdominal aorta. No evidence of abdominal aortic aneurysm or dissection. No flow-limiting stenosis in the celiac, superior mesenteric, or bilateral renal arteries. No significant flow-limiting stenosis in the inferior mesenteric artery. Right lower extremity: No significant flow-limiting stenosis in the right common, internal, or external iliac artery. No flow-limiting stenosis in the right profunda femoral, common femoral, or superficial femoral arteries. Popliteal artery is patent. Tibial peroneal trunk is patent. Patent anterior tibial, posterior tibial, and peroneal arteries. Left lower extremity: No significant flow-limiting stenosis in the left common, internal, and external iliac artery. No flow-limiting stenosis in the left profunda femoral, common femoral, and superficial femoral artery. Popliteal artery is patent. Tibial peroneal trunk, anterior tibial, posterior tibial, and peroneal arteries are patent without significant flow-limiting stenosis. Other structures: Asymmetric subcutaneous fat stranding in the right lower extremity at the level of the mid thigh extending to the ankle is nonspecific and may represent asymmetric edema. Cellulitis considered less likely. Evaluation of the lower extremity venous structures is limited on this examination. If clinical concern for deep venous thrombosis, may consider right lower extremity venous Doppler examination. There is an asymmetric small left pleural effusion with passive atelectasis. Postsurgical findings in the mediastinum and prior sternotomy. There is diffuse hepatic steatosis. The gallbladder, stomach, and pancreas are unremarkable. Calcified granulomas in the spleen. Adrenal glands are unremarkable. Nonobstructive nephrolithiasis in the right kidney measuring 1.1 cm. Left kidney is unremarkable. No hydroureteronephrosis. Unopacified bladder is unremarkable. There is a small fat-containing left inguinal hernia. No acute osseous abnormality. No suspicious lytic or sclerotic lesions. No acute fracture. Procedure Note Pancho Carr II, DO - 01/10/2024 EXAMINATION: CT ANGIOGRAPHY OF THE ABDOMEN, PELVIS, AND LOWER EXTREMITIES WITH CONTRAST HISTORY: Claudication and leg ischemia. TECHNIQUE: CT angiography of the abdomen, pelvis, and lower extremities was performed following the uneventful intravenous administration of 119 ml Optiray-350. Vascular 3D images were generated on a dedicated workstation and also reviewed. FINDINGS: 02/24/2022. VASCULAR FINDINGS: Aorta and branch vessels: Mild atherosclerotic calcifications in the abdominal aorta. No evidence of abdominal aortic aneurysm or dissection. No flow-limiting stenosis in the celiac, superior mesenteric, or bilateral renal arteries. No significant flow-limiting stenosis in the inferior mesenteric artery. Right lower extremity: No significant flow-limiting stenosis in the right common, internal, or external iliac artery. No flow-limiting stenosis in the right profunda femoral, common femoral, or superficial femoral arteries. Popliteal artery is patent. Tibial peroneal trunk is patent. Patent anterior tibial, posterior tibial, and peroneal arteries. Left lower extremity: No significant flow-limiting stenosis in the left common, internal, and external iliac artery. No flow-limiting stenosis in the left profunda femoral, common femoral, and superficial femoral artery. Popliteal artery is patent. Tibial peroneal trunk, anterior tibial, posterior tibial, and peroneal arteries are patent without significant flow-limiting stenosis. Other structures: Asymmetric subcutaneous fat stranding in the right lower extremity at the level of the mid thigh extending to the ankle is nonspecific and may represent asymmetric edema. Cellulitis considered less likely. Evaluation of the lower extremity venous structures is limited on this examination. If clinical concern for deep venous thrombosis, may consider right lower extremity venous Doppler examination. There is an asymmetric small left pleural effusion with passive atelectasis. Postsurgical findings in the mediastinum and prior sternotomy. There is diffuse hepatic steatosis. The gallbladder, stomach, and pancreas are unremarkable. Calcified granulomas in the spleen. Adrenal glands are unremarkable. Nonobstructive nephrolithiasis in the right kidney measuring 1.1 cm. Left kidney is unremarkable. No hydroureteronephrosis. Unopacified bladder is unremarkable. There is a small fat-containing left inguinal hernia. No acute osseous abnormality. No suspicious lytic or sclerotic lesions. No acute fracture. IMPRESSION: 1. No flow-limiting arterial stenosis or aneurysm. 2. Asymmetric subcutaneous fat stranding in the right lower extremity at the level of the mid thigh extending to the ankle is nonspecific and may represent asymmetric edema. Cellulitis considered less likely. Evaluation of the lower extremity venous structures is limited on this examination. If clinical concern for deep venous thrombosis, may consider right lower extremity venous Doppler examination. 3. Additional chronic or incidental findings as above. Electronically signed by: Pancho Carr II, D.O. Loc Xavier MD IMG CT PROCEDURES Final Re sult from Last 3 Months or Most Recently Relevant to Health Maintenance Insurance [place] [employer] [facility] MEDICARE ADVANTAGE [facility] MEDICARE ADVANTAGE Member Subscriber Plan / Payer (Ef fective 2023-Present) Name:Quintin Thacker Relation to Subscriber:Self Name:Quintin Thacker Payer ID:[id number] (NAIC) Type:[employer] MEDICARE Address: [place] [id number] [place] [id number] ID[employer] Advance Directives For more information, please contact: [phone] Documents on File Type Date Recorded Patient Retinal Angiographer Expl anation Advance Directives and Livin g Will 01/17/2024 4:28 PM * Full Code (Latest Code Status on File) Date Activated Date Inactivated Comments 01/23/2024 12:32 PM 01/30/2024 4:12 PM * Full Code Date Activated Date Inactivated Comments 01/10/2024 12:19 PM 01/23/2024 12:20 PM * Full Code Date Activated Date Inactivated Comments 12/30/2023 4:10 PM 01/05/2024 4:35 PM * Full Code Date Activated Date Inactivated Comments 12/11/2023 10:52 AM 12/11/2023 5:15 PM Care Teams Water Pump Installer Relationship Specialty Start Date End Date Jose Post MD [address] [address] PCP - General Gastroenterology 12/04/20 Digna Junior MD [address] [id number] [place] [address] Surgeon Cardiothoracic Surgery 01/05/24 Rajiv Melchor MD [address] [address] Consulting Physician Cardiology 01/05/24 Miscellaneous, Not In File 01/05/24
--- OUTSIDE RECORDS SUMMARY | 2024-07-07 01:44 | XMS_ITS | Clinical Summary ---
Author Organization [facility] [address] Address [address] [place] [address] Care Team Providers Care Weight Training Instructor Name Role Phone Jose Post MD Primary Care Provider Digna Junior MD Unavailable [phone] Rajiv Melchor MD Unavailable Miscellaneous, Not In File Unavailable Unava ilable Allergies No known active allergies Medications albuterol [...] total) by mouth daily 90 tablet 01/30/20 24 Active rosuvastatin (CRESTOR) 20 mg tabletIndications :coronary artery disease Take 1 tablet (20 mg total) by mouth daily 90 tablet 02/14/20 24 Active metoprolol tartrate (LOPRESSOR) 25 mg immediate release tablet Take 1 tablet (25 mg total) by mouth 2 (two) times a day 02/03/20 24 Active theophylline (THEODUR) 300 mg 12 hr tablet Take 1 tablet (300 mg total) by mouth every 12 (twelve) hours 02/02/20 24 Active meloxicam (MOBIC) 15 mg tablet Take 1 tablet (15 mg total) by mouth daily 02/10/20 24 Active HYDROcodone-aceta minophen (NORCO) 10-325 mg per tablet Take 1 tablet by mouth every 4 (four) hours as needed for pain 02/02/20 24 Active montelukast (SINGULAIR) 10 mg tablet TAKE 1 TABLET(10 MG) BY MOUTH EVERY NIGHT 30 tablet 11 03/09/20 24 Active Active Problems Problem Noted Date Diagnosed Date Pleural effusion 02/19/2024 Assessment & Plan (02/19/2024 12:18 PM LIBRARIAN HELPER): Stat CT of the chest today to reassess as he is having significant difficulty breathing. His vital signs remain stable, he may ultimately require a therapeutic thoracentesis Physical deconditioning 01/23/2024 Severe sepsis with septic shock (CODE) Coronary artery disease (CAD) excluded CAD, multiple vessel 12/30/2023 Coronary artery disease [...] in frequency He does follow with a welcome wagon host/hostess, last EKG was on 08/04/2023 and revealed sinus rhythm with a bundle-branch block Echocardiogram as ordered above He is aware of signs and symptoms that require urgent evaluation Chronic respiratory failure with hypoxia, on home O2 therapy 08/07/2023 Assessment & Plan (02/19/2024 12:17 PM LIBRARIAN HELPER): Continue supplemental oxygen with all sleep Discussed [...] 02/02/2021 Assessment & Plan (02/19/2024 12:16 PM LIBRARIAN HELPER): Remain on Breyna and Spiriva daily Albuterol [...] pr essure while in hospital 02/20/2021 10/05/2022 Encounters Date Type Department Care Team Description 05/15/2024 Telephone [facility] Pulmonary at [address] [place] [address] Pam Mckenzie LPN Treatment Plan Update 04/29/2024 9:00 AM LIBRARIAN HELPER Home Care Visit [address] [place] [address] Bria Perea SN OASIS DISCHARGE 04/22/2024 11:00 AM LIBRARIAN HELPER Home Care Visit [address] [place] [address] Bria Perea SN HOME VISIT 04/15/2024 12:30 PM LIBRARIAN HELPER Home Care Visit [address] [place] [address] Bria Perea SN HOME VISIT 04/09/2024 4:00 PM LIBRARIAN HELPER Home Care Visit [address] [place] [address] Dee Goss LPN SN HOME VISIT from Last 3 Months Surgical History Surgery Date Site/Laterality Comments KIDNEY STONE SURGERY COLLATERAL LIGAMENT REPAIR, ELBOW 04/08/2019 - 0 Left FLUORO GUIDED ASPIRATION OR INJECTION LARGE JOINT BILATERAL 11/04/2018 Bilateral FOOT SURGERY Left as a kid Medical History Medical History Date Comments Atrial fibrillation (HCC) 12/04/2020 COPD (chronic obstructive pu lmonary disease) (HCC) Nephrolithiasis Spinal stenosis Angina pectoris, unspecified 08/07/2023 CAD (coronary artery disease) Emphysema lung (HCC) Lung tumor Shoulder pain left, severed ro tator cuff Oxygen desaturation 3L PRN and a t night Right bundle branch block Chronic back pain broken back se veral years ago, deals with the pain, surgery would immobilize him Hyperlipidemia Hypertension GERD (gastroesophageal reflux disease) FOND [place] LAC (hard of hearing) Family History Medical History Relation Name Comments Heart attack Father Relation Name Status Comments Father Social History Tobacco Use Types Packs/Day Years [...] materials from doctor or pharmacy Never 04/29/2024 [facility] Utilities Answer Date Recorded In the past 12 months has e [employer], gas, oil, or water [employer] threatened to shut off services in your [...] often do you attend chur ch or gnosticism services? Never 01/24/2024 Do you belong to any clubs o r organizations such as adventism groups, unions, fraternal or athletic groups, or [...] any time in the past 12 m [facility], were you homeless or living in a nursing home (including now)? No 01/24/2024 Personal Safety Answer Date Recorded Have you ever been in or are you currently in a harmful physical or emotional relationship or is someone making you feel afraid or unsafe? Denies 01/23/2024 Sex and Gender Information Value Date Recorded Sex Assigned at Not on file Legal Sex Male 7:50 PM LIBRARIAN HELPER Gender Identity Male 02/02/2021 11:29 PM CDT Sexual Orientation Straight 02/02/2021 11 :29 PM CDT Obstetrics History Last Filed Vital Signs Vital Sign Reading Time Taken Comments Blood Pressure 102/68 04/29/2024 11:46 AM LIBRARIAN HELPER Pulse 80 04/29/2024 11:46 AM LIBRARIAN HELPER Temperature 36.8 C (98.3 F) 04/29/2024 11:46 AM LIBRARIAN HELPER Respiratory Rate 20 04/29/2024 11:46 AM LIBRARIAN HELPER Oxygen Saturation 98% 04/29/2024 11:46 AM LIBRARIAN HELPER Inhaled Oxygen Concentration - - Weight 92.3 kg (203 lb 8 oz) 02/19/2024 9:48 AM LIBRARIAN HELPER Height 177.8 cm (5' 10 ) 02/19/2024 9:48 AM LIBRARIAN HELPER Body Mass Index 29.2 02/19/2024 9:48 AM LIBRARIAN HELPER Plan of Treatment Health Maintenance Due Date Last Done Comments Colon Cancer Screening-Colonoscopy 1955 Hepatitis C Screening 1955 Prostate Cancer Screening-PSA 1956 Hepatitis B Screening 1974 Pneumococcal vaccine 65+ (1 of 2 - PCV) 1975 Zoster Vaccine (1 of 2) 2006 Well Visit 65+ 2021 Covid-19 Vaccine (2 - season) 12/08/202301/2021 Influenza Vaccine (#1) 2023 03/24/2021, 2017 Depression Screening 01/22/2025 01/23/2024, 01/23/20 Fall Risk Assessment 01/29/2025 01/30/2024 DTaP/Tdap/Td Vaccine (2 - Tdap) 01/03/2030 0 Abdominal Aortic Aneurysm (AAA) Screen Completed , 02/19/2019 Medical Devices Implanted Type Area Dramatic Director Device Identifier Shelf Expiration Date Model / Serial / Lot [employer] Plate Bone Low Profile 6 Hole H Shape Sternum Ti 115.102.06 - [id number] Implanted:Qty: 1 on 12/30/2023 by Digna Junior MD at [facility] Plate N/A: Sternum [employer] 115.102.06 / / [employer] Plate Bone Low Profile 4 Hole Box Sternum Ti 115.103.04 - [id number] Implanted:Qty: 1 on 12/30/2023 by Digna Junior MD at [facility] Plate N/A: Sternum [employer] 115.103.04 / / [employer] Plate Bone Low Profile 6 Hole O Concave Sternum Ti 115.604.06 - [id number] Implanted:Qty: 1 on 12/30/2023 by Digna Junior MD at [facility] Plate N/A: Sternum [employer] 115.604.06 / / [employer] Screw Bone Slf Drl Full Thread Locking 3.5x18mm Ti 100.035.18 - [id number] Implanted:Qty: 16 on 12/30/2023 by Digna Junior MD at [facility] Screw N/A: Sternum [employer] 100.035.18 / / [employer] Device Closure Vascade Od5 Fr Femoral Artery [id number] - [id number] Implanted:Qty: 1 on 12/11/2023 by Johnathan Bullock MD at [facility] [employer] 08/14/2025 [id number] / / [id number] Procedures Procedure Name Priority Date/Time Associated [...] No acute fracture. Procedure Note Pancho Carr HORTENCIA, DO - 01/10/2024 EXAMINATION: CT ANGIOGRAPHY OF [...] incidental findings as above. Electronically signed by: Ramiro Baum IIODeb Loc Xavier MD IMG CT PROCEDURES Final Re sult from Last 3 Months or Most Recently Relevant to Health Maintenance Insurance [facility] [place] [phone] [facility]IC[facility] Address: [address] [address] [place] [address] [facility] MEDICARE ADVANTAGE ID[employer] Advance Directives For more information, please contact: [phone] Documents on File Type Date Recorded Patient Air Sealing Technician Expl anation Advance Directives and Livin g [...] 10:52 AM 12/11/2023 5:15 PM Care Teams Weight Training Instructor Relationship Specialty Start Date End Date Jose Post MD [address] [address] PCP - General Gastroenterology 12/04/20 Digna Junior MD [address] [facility] [id number] [place] [address] Surgeon Cardiothoracic Surgery 01/05/24 Rajiv Melchor MD [address] [address] Consulting Physician Cardiology 01/05/24 Miscellaneous, Not In File 01/05/24
[2024-07-07 01:47] VITALS: BP 144/86; PULSE 60; RESP 16; TEMP 37.1; O2SAT 99
--- NOTE | 2024-07-07 02:05 | ED_ITS ---
HPI - Abdominal Pain General Chief Complaint: Abdominal Pain Stated Complaint: abd pain Time Seen by Provider: 07/07/24 01:57 History of Present Illness HPI narrative: 69-year-old male with a past medical history including coronary disease status post CABG, COPD, kidney stone history. He presents to the emergency room with chief complaint of abdominal pain. Yesterday it started in his epigastric region and slowly radiated towards his right flank and right lower quadrant. He is concerned about as appendix. No history of abdominal surgeries. He did have a open-heart surgery 6 months ago [facility] for bypass. Has recovered well from this. Endorses chills at home yesterday but no known fevers. No nauseousness or vomiting. No diarrhea constipation. No testicular pain or swelling. No urinary complaints. No chest pain or shortness a breath. No chest pressure. He was otherwise doing well. Related Data Home Medications ?Medication ?Instructions ?Recorded ?Confirmed ?Last Taken ?Type albuterol sulfate 4 mg tablet 8 mg PO Q12H 12/04/20 12/04/20 Unknown History budesonide-formoterol HFA 80 2 puff inhalation Q12H 12/04/20 12/04/20 Unknown History mcg-4.5 mcg/actuation aerosol inhaler (Symbicort) escitalopram oxalate 10 mg tablet 10 mg PO DAILY 12/04/20 12/04/20 Unknown History famotidine 40 mg tablet 40 mg PO QPM 12/04/20 12/04/20 Unknown History fluticasone propionate 50 1 spray intranasal DAILY 12/04/20 12/04/20 Unknown History mcg/actuation nasal spray,suspension hydrocodone 10 mg-acetaminophen 1 tablet PO QID PRN Pain 12/04/20 12/04/20 Unknown History 325 mg tablet meloxicam 15 mg tablet 15 mg PO DAILY 12/04/20 12/04/20 Unknown History montelukast 10 mg tablet 10 mg PO DAILY 12/04/20 12/04/20 Unknown History theophylline 300 mg 300 mg PO Q12H 12/04/20 12/04/20 Unknown History tablet,extended release,12 hr tiotropium bromide 18 mcg capsule 1 cap inhalation DAILY 12/04/20 12/04/20 Unknown History with inhalation device (Spiriva with HandiHaler) Allergies Allergy/AdvReac Type Severity Reaction Status Date / Time No Known Allergies Allergy Verified 07/07/24 01:42 Review of Systems 2 Review of Systems: As reviewed above in [facility] Past Medical History Medical History COPD (chronic obstructive pulmonary disease) Family History Family History Other Asthma Carcinoma of colon Diabetes mellitus Family history of coronary artery disease Family history of malignant neoplasm of stomach Family history of seizure disorder Hypertension Social History Social History Smoking packs per day: 2 Smoking cigarettes per day: 40.0 Years smoked: 15 Smoking pack-years: 30.00 Smoking status: Former smoker Tobacco type: cigarettes Alcohol intake: never Substance use: never Gender identity (if verbalized by the patient): Male Spiritual care concerns: No Exam 2 Narrative: GENERAL: [Well-appearing, well-nourished, and in no acute distress.] HEAD: [Normocephalic, atraumatic.] EYES: [PERRLA and EOMI.] ENT: Nares clear, no rhinorrhea or epistaxis. Mucous membranes moist. NECK: Supple. CHEST: [Clear to auscultation. No respiratory distress.] HEART: [Regular rate and rhythm]. No murmur heard. [Normal peripheral pulses.] ABDOMEN: Protuberant but soft, tender to palpation the right lower quadrant, negative psoas and Rovsing sign, [No rigidity or guarding] EXTREMITIES: Normal range of motion. [No edema.] SKIN: Warm, dry, no rash. NEURO: [No focal deficits]. Alert and oriented [x3.] PSYCH: [Normal mood and affect.] Course Vital Signs Vital signs: Vital Signs Temperature 37.1 C 07/07/24 01:47 Pulse Rate 60 07/07/24 01:47 Respiratory Rate 16 07/07/24 01:47 Blood Pressure 144/86 H 07/07/24 01:47 Pulse Oximetry 99 07/07/24 01:47 Oxygen Delivery Room Air 07/07/24 01:47 Temperature 37.1 C 07/07/24 01:47 Pulse Rate 78 07/07/24 04:02 Respiratory Rate 16 07/07/24 04:02 Blood Pressure 130/76 07/07/24 04:02 Pulse Oximetry 100 07/07/24 04:02 Oxygen Delivery Room Air 07/07/24 01:47 MDM - Abdominal Pain MDM Narrative Medical decision making narrative: 69-year-old male with a past medical history including recent CABG 6 months ago, COPD and kidney stones. He presents with pain that began in his umbilical region yesterday and radiated towards his right lower quadrant. He does have tenderness to palpation the right lower quadrant but no overlying skin changes. He has a protuberant abdomen but soft to palpation. Vital signs are reassuring, no tachycardia, fever, hypoxia. Blood pressure not significantly elevated. Considerations presently are for potential appendicitis, appendicolith, colitis, gastroenteritis, less likely kidney stone versus gallbladder stone. We will evaluate with laboratory studies including a CBC, CMP, lipase, urinalysis and a CT scan of the abdomen and pelvis with IV contrast. He was given a fluid bolus and Dilaudid for pain control. He will be placed on equipment monitor phototypesetting and re- evaluated. Patient's workup here shows no significant leukocytosis or anemia. Normal platelet count. Electrolytes are within normal limits. Normal renal function, normal hepatic function. Normal glucose. Urinalysis with no signs of infection. CT shows small distal right ureteral stones an additional bladder stones but no hydronephrosis or hydroureter. No signs of appendicitis. No ascites. Prostate is minimally enlarged. Patient was provided Toradol and Flomax. He is safe for discharge home with Urology follow-up as needed and given prescription for Toradol and Flomax. Medical Records Attestation: I reviewed the patient's medical records. Lab Data Attestation: I reviewed the patient's lab results. 07/07/24 01:51 07/07/24 01:51 Labs: Lab Results 07/07/24 07/07/24 Range/Units 01:51 04:00 WBC 11.7 H (4.5-10.0) K/mm3 RBC 4.74 (4.6-6.20) M/mm3 Hgb 14.5 (14.0-18.0) g/dL Hct 42.4 (42.0-52.0) % MCV 89.5 (80-100) fl MCH 30.6 (26-34) pg MCHC 34.2 (32-36) g/dl RDW 16.4 H (11.5-14.5) % Plt Count 270 (150-375) k/mm3 MPV 9.2 (7.4-10.4) fl Immature Gran % (Auto) 0.2 (0-0.5) % Neut % (Auto) 62.6 (45.5-73.1) % Lymph % (Auto) 23.8 (18.3-44.2) % [place] % (Auto) 9.3 H (2.6-8.5) % Eos % (Auto) 3.2 (0-4.4) % Baso % (Auto) 0.9 (0.2-1.2) % Lymph # (Auto) 2.77 (0.9-3.2) K/mm3 [place] # (Auto) 1.1 H (0.1-0.6) K/mm3 Eos # (Auto) 0.4 H (0-0.3) K/mm3 Baso # (Auto) 0.1 (0.0-0.1) K/mm3 Abs Immat Gran (auto) 0.02 (0.00-0.031) K/mm3 Absolute Neuts (auto) 7.3 H (1.3-6.7) K/mm3 Absolute Nucleated RBC 0.000 (0.0-0.012) K/mm3 Nucleated RBC % 0.0 (0.0-0.2) % Sodium 138 (137-145) mmol/L Potassium 4.2 (3.4-5.0) mmol/L Chloride 103 (98-107) mmol/L Carbon Dioxide 25 (22-30) mmol/L Anion Gap 10 (4-12) mmol/L BUN 20 (9-20) mg/dL Creatinine 0.99 (0.7-1.3) mg/dL Estim Creat Clear Calc 65 ml/min Estimated GFR > 60 (59 - ) Glucose 108 (65-110) mg/dL Calcium 9.4 (8.4-10.2) mg/dL Total Bilirubin 0.4 (0.2-1.3) mg/dL AST 21 (17-59) U/L ALT 21 (6-50) U/L Alkaline Phosphatase 98 (38-126) U/L Total Protein 8.0 (6.3-8.2) g/dL Albumin 4.1 (3.5-5.1) g/dL Lipase 44 (23-300) U/L Urine Color Yellow (Yellow) Urine Appearance Clear (Clear) Urine pH 6.0 (5.0-9.0) Ur Specific [place] > 1.045 H (1.001-1.035) Urine Protein Negative (Negative) mg/dL Urine Glucose (UA) Negative (Negative) mg/dL Urine Ketones Negative (Negative) mg/dL Ur Blood (Man) Negative (Negative) Urine Nitrate Negative (Negative) Urine Bilirubin Negative (Negative) Urine Urobilinogen 0.2 (<2.0) mg/dL Leukocyte Esterase Rfl Negative (Negative) KEYSHAWN/UL Imaging Data Attestation: I personally reviewed and interpreted this imaging study as follows: My impression: Impressions Abdomen/Pelvis CT 07/07/24 06:19 Impression: Small distal right ureteral stones and additional urinary bladder stones. No hydronephrosis or hydroureter. Radiologist's impression: ITS Impressions Abdomen/Pelvis CT 07/07/24 06:19 Impression: Small distal right ureteral stones and additional urinary bladder stones. No hydronephrosis or hydroureter. Discharge Plan Discharge Clinical Impression: Calculus of distal right ureter, Bladder calculi Patient Disposition: Home, Self-Care Condition: Stable Instructions: Antibiotic Form, Kidney Stones (ED), How to Strain Your Urine (ED), Flank Pain (ED) Additional Instructions: Your abdominal scans show distal kidney stones and urinary bladder stones but no signs of obstruction. No signs of any appendix inflammation. No other findings near belly. Your laboratory studies are normal. We will send you home with Flomax and pain medicines as needed. Follow-up with Urology. Return with any new or worsening concerns. Patient Language: Armenian Prescriptions: New ketorolac 10 mg tablet 10 mg PO Q8H PRN (Reason: pain) 5 Days Qty: 20 0RF Rx Instructions: maximum total duration of 5 days from all oral, intranasal, or parenteral formulations tamsulosin [Flomax] 0.4 mg capsule 0.4 mg PO DAILY Qty: 20 0RF No Action meloxicam 15 mg tablet 15 mg PO DAILY famotidine 40 mg tablet 40 mg PO QPM albuterol sulfate 4 mg tablet 8 mg PO Q12H hydrocodone-acetaminophen 10-325 mg tablet 1 tablet PO QID PRN (Reason: Pain) theophylline 300 mg tablet extended release 12 hr 300 mg PO Q12H montelukast 10 mg tablet 10 mg PO DAILY fluticasone propionate 50 mcg/actuation spray,suspension 1 spray INTRANASAL DAILY escitalopram oxalate 10 mg tablet 10 mg PO DAILY Spiriva with HandiHaler 18 mcg capsule, w/inhalation device 1 cap INHALATION DAILY budesonide-formoterol [Symbicort] 80-4.5 mcg/actuation HFA aerosol inhaler 2 puff INHALATION Q12H aspirin 325 mg Tablet 325 mg PO DAILY@0800 Qty: 30 0RF metoprolol tartrate 100 mg tablet 100 mg PO Q12H Qty: 60 0RF tamsulosin [Flomax] 0.4 mg capsule 0.4 mg PO DAILY Qty: 10 0RF ondansetron 4 mg tablet,disintegrating 4 mg PO Q8H PRN (Reason: nausea and vomiting) Qty: 10 0RF Follow-up/Referrals: Dung Simpson MD [Physician] - 1 Week (Kidney stones and bladder stones) Sincere,Jose Car MD [Primary Care Provider] - Time of Disposition: 06:48
[2024-07-07 02:06] LABS: Basophils Absolute Auto 0.1 K/mm3 (0.0-0.1); Basophils Percent Auto 0.9 % (0.2-1.2); Eosinophils Absolute Auto 0.4 K/mm3 (0-0.3); Eosinophils Percent Auto 3.2 % (0-4.4); Hematocrit 42.4 % (42.0-52.0); Hemoglobin 14.5 g/dL (14.0-18.0); Immature Granulocyte Absolute 0.02 K/mm3 (0.00-0.031); Immature Granulocyte Percent A 0.2 % (0-0.5); Lymphocytes Absolute Auto 2.77 K/mm3 (0.9-3.2); Lymphocytes Percent Auto 23.8 % (18.3-44.2); Mean Corpuscular HGB Conc 34.2 g/dl (32-36); Mean Corpuscular Hemoglobin 30.6 pg (26-34); Mean Corpuscular Volume 89.5 fl (80-100); Mean Platelet Volume 9.2 fl (7.4-10.4); Monocytes Absolute Auto 1.1 K/mm3 (0.1-0.6); Monocytes Percent Auto 9.3 % (2.6-8.5); Neutrophils Absolute Auto 7.3 K/mm3 (1.3-6.7); Neutrophils Percent Auto 62.6 % (45.5-73.1); Platelet Count Result 270 k/mm3 (150-375); Red Blood Count 4.74 M/mm3 (4.6-6.20); Red Cell Distribution Width 16.4 % (11.5-14.5); White Blood Count 11.7 K/mm3 (4.5-10.0)
[2024-07-07 02:17] LABS: Alanine Aminotransferase 21 U/L (6-50); Albumin Level 4.1 g/dL (3.5-5.1); Alkaline Phosphatase 98 U/L (38-126); Anion Gap 10 mmol/L (4-12); Aspartate Amino Transferase 21 U/L (17-59); Bilirubin,Total 0.4 mg/dL (0.2-1.3); Blood Urea Nitrogen 20 mg/dL (9-20); Calcium 9.4 mg/dL (8.4-10.2); Carbon Dioxide 25 mmol/L (22-30); Chloride 103 mmol/L (98-107); Estimated CRCL calculation 65 ml/min; Estimated Glomerular Filt Rate > 60; Glucose 108 mg/dL (65-110); Lipase 44 U/L (23-300); Potassium 4.2 mmol/L (3.4-5.0); Sodium 138 mmol/L (137-145)
--- OUTSIDE RECORDS SUMMARY | 2024-07-07 02:27 | XMS_ITS | Referral Summary ---
Author Organization [facility] [address] Address [address] [place] [address] Care Team Providers Care Lead Web Developer Name Role Phone Jose Post MD Primary Care Provider Digna Junior MD Unavailable [phone] Rajiv Melchor MD Unavailable Miscellaneous, Not In File Unavailable Unava ilable Encounters Date Type Department Care Team Description 05/15/2024 Telephone [facility] Medical Group Pulmonary at [address] [place] [address] Pam Mckenzie LPN Treatment Plan Update 04/29/2024 9:00 AM VETERINARY SURGERY TECHNOLOGIST Home Care Visit [address] [place] [address] Bria Perea OASIS DISCHARGE 04/22/2024 11:00 AM VETERINARY SURGERY TECHNOLOGIST Home Care Visit [address] [place] [address] Bria Perea HOME VISIT 04/15/2024 12:30 PM VETERINARY SURGERY TECHNOLOGIST Home Care Visit [address] [place] [address] Bria Perea SN HOME VISIT 04/09/2024 4:00 PM VETERINARY SURGERY TECHNOLOGIST Home Care Visit [address] [place] [address] Dee Goss LPN SN HOME VISIT from [...] 02/19/2024 Assessment & Plan (02/19/2024 12:18 PM VETERINARY SURGERY TECHNOLOGIST): Stat CT of the chest today to [...] in frequency He does follow with a pathologist, last EKG was on 08/04/2023 and revealed sinus rhythm with a bundle-branch block Echocardiogram as ordered above He is aware of signs and symptoms that require urgent evaluation Chronic respiratory failure with hypoxia, on home O2 therapy 08/07/2023 Assessment & Plan (02/19/2024 12:17 PM VETERINARY SURGERY TECHNOLOGIST): Continue supplemental oxygen with all sleep Discussed [...] 02/02/2021 Assessment & Plan (02/19/2024 12:16 PM VETERINARY SURGERY TECHNOLOGIST): Remain on Breyna and Spiriva daily Albuterol [...] materials from doctor or pharmacy Never 04/29/2024 [facility] Utilities Answer Date Recorded In the past 12 months has th e [employer] gas, oil, or water [employer] threatened to shut off services in your [...] often do you attend chur ch or rastafarian services? Never 01/24/2024 Do you belong to any clubs o r organizations such as advent groups, unions, fraternal or athletic groups, or [...] any time in the past 12 m [facility], were you homeless or living in a jail (including now)? No 01/24/2024 Personal Safety Answer Date Recorded Have you ever been in or are you currently in a harmful physical or emotional relationship or is someone making you feel afraid or unsafe? Denies 01/23/2024 Sex and Gender Information Value Date Recorded Sex Assigned at Not on file Legal Sex Male 7:50 PM VETERINARY SURGERY TECHNOLOGIST Gender Identity Male 02/02/2021 11:29 PM CDT Sexual Orientation Straight 02/02/2021 11 :29 PM CDT Last Filed Vital Signs Vital Sign Reading Time Taken Comments Blood Pressure 102/68 04/29/2024 11:46 AM VETERINARY SURGERY TECHNOLOGIST Pulse 80 04/29/2024 11:46 AM VETERINARY SURGERY TECHNOLOGIST Temperature 36.8 C (98.3 F) 04/29/2024 11:46 AM VETERINARY SURGERY TECHNOLOGIST Respiratory Rate 20 04/29/2024 11:46 AM VETERINARY SURGERY TECHNOLOGIST Oxygen Saturation 98% 04/29/2024 11:46 AM VETERINARY SURGERY TECHNOLOGIST Inhaled Oxygen Concentration - - Weight 92.3 kg (203 lb 8 oz) 02/19/2024 9:48 AM VETERINARY SURGERY TECHNOLOGIST Height 177.8 cm (5' 10 ) 02/19/2024 9:48 AM VETERINARY SURGERY TECHNOLOGIST Body Mass Index 29.2 02/19/2024 9:48 AM VETERINARY SURGERY TECHNOLOGIST Plan of Treatment Not on file Medical Devices Implanted Type Area Call Specialist Device Identifier Shelf Expiration Date Model / Serial / Lot [employer] Plate Bone Low Profile 6 Hole H Shape Sternum Ti 115.102.06 - [id number] Implanted:Qty: 1 on 12/30/2023 by Digna Junior MD at [facility] Plate N/A: Sternum [employer] 115.102.06 / / [employer] Plate Bone Low Profile 4 Hole Box Sternum Ti 115.103.04 - [id number] Implanted:Qty: 1 on 12/30/2023 by Digna Junior MD at [facility] Plate N/A: Sternum [employer] 115.103.04 / / [employer] Plate Bone Low Profile 6 Hole O Concave Sternum Ti 115.604.06 - [id number] Implanted:Qty: 1 on 12/30/2023 by Digna Junior MD at [facility] Plate N/A: Sternum [employer] 115.604.06 / / [employer] Screw Bone Slf Drl Full Thread Locking 3.5x18mm Ti 100.035.18 - [id number] Implanted:Qty: 16 on 12/30/2023 by Digna Junior MD at [facility] Screw N/A: Sternum [employer] 100.035.18 / / [employer] Device Closure Vascade Od5 Fr Femoral Artery [id number] - [id number] Implanted:Qty: 1 on 12/11/2023 by Johnathan Bullock MD at [facility] [employer] 08/14/2025 700-500DX- 05U / / [id number] Procedures Procedure Name Priority Date/Time Associated [...] Most Recently Relevant to Health Maintenance Insurance [employer] [facility] MEDICARE ADVANTAGE [facility] MEDIC[facility] Member Subscriber Plan / Payer (Ef fective 2023-Present) Name:Quintin Thacker Relation to Subscriber:Self Name:Quintin Thacker Payer ID:[id number] (NAIC) Type:UHC MEDICARE Address: [place] [id number] [place] [id number] IDPA Advance Directives For more information, please contact: [phone] Documents on File Type Date Recorded Patient Shotgun Shell Assembly Machine Operator Expl anation Advance Directives and Livin g [...] 10:52 AM 12/11/2023 5:15 PM Care Teams Lead Web Developer Relationship Specialty Start Date End Date Jose Post MD [address] [address] PCP - General Gastroenterology 12/04/20 Digna Junior MD [address] [facility] [id number] [place] [address] Surgeon Cardiothoracic Surgery 01/05/24 Rajiv Melchor MD [address] [address] Consulting Physician Cardiology 01/05/24 Miscellaneous, Not In File 01/05/24
--- OUTSIDE RECORDS SUMMARY | 2024-07-07 02:27 | XMS_ITS | Clinical Summary ---
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 Medical Group Pulmonary at [address] [place] [address] Pam Mckenzie LPN Treatment Plan Update 04/29/2024 9:00 AM FUNERAL CAR DRIVER Home Care Visit [address] [place] [address] Bria Perea SN OASIS DISCHARGE 04/22/2024 11:00 AM FUNERAL CAR DRIVER Home Care Visit [address] [place] [address] Bria Perea SN HOME VISIT 04/15/2024 12:30 PM FUNERAL CAR DRIVER Home Care Visit [address] [place] [address] Bria Perea SN HOME VISIT 04/09/2024 4:00 PM FUNERAL CAR DRIVER Home Care Visit [address] [place] [address] Dee Goss LPN SN HOME VISIT from [...] him Hyperlipidemia Hypertension GERD (gastroesophageal reflux disease) [place] (hard of hearing) Family History Medical History [...] materials from doctor or pharmacy Never 04/29/2024 [facility] Utilities Answer Date Recorded In the past 12 months has e [employer] gas, oil, or water [employer] threatened to shut off services in your [...] often do you attend chur ch or christianity services? Never 01/24/2024 Do you belong to any clubs o r organizations such as scientology groups, unions, fraternal or athletic groups, or [...] any time in the past 12 m [facility], were you homeless or living in a fdc (including now)? No 01/24/2024 Personal Safety Answer Date Recorded Have you ever been in or are you currently in a harmful physical or emotional relationship or is someone making you feel afraid or unsafe? Denies 01/23/2024 Sex and Gender Information Value Date Recorded Sex Assigned at Not on file Legal Sex Male 7:50 PM FUNERAL CAR DRIVER Gender Identity Male 02/02/2021 11:29 PM CDT Sexual Orientation Straight 02/02/2021 11 :29 PM CDT Obstetrics History Last Filed Vital Signs Vital Sign Reading Time Taken Comments Blood Pressure 102/68 04/29/2024 11:46 AM FUNERAL CAR DRIVER Pulse 80 04/29/2024 11:46 AM FUNERAL CAR DRIVER Temperature 36.8 C (98.3 F) 04/29/2024 11:46 AM FUNERAL CAR DRIVER Respiratory Rate 20 04/29/2024 11:46 AM FUNERAL CAR DRIVER Oxygen Saturation 98% 04/29/2024 11:46 AM FUNERAL CAR DRIVER Inhaled Oxygen Concentration - - Weight 92.3 kg (203 lb 8 oz) 02/19/2024 9:48 AM FUNERAL CAR DRIVER Height 177.8 cm (5' 10 ) 02/19/2024 9:48 AM FUNERAL CAR DRIVER Body Mass Index 29.2 02/19/2024 9:48 AM FUNERAL CAR DRIVER Plan of Treatment Health Maintenance Due Date [...] , 02/19/2019 Medical Devices Implanted Type Area Rn Ostomy Device Identifier Shelf Expiration Date Model / Serial / Lot [employer] Plate Bone Low Profile 6 Hole H Shape Sternum Ti 115.102.06 - [id number] Implanted:Qty: 1 on 12/30/2023 by Digna Junior MD at [facility] Plate N/A: Sternum [employer] 115.102.06 / / [employer] Plate Bone Low Profile 4 Hole Box Sternum Ti 115.103.04 - [id number] Implanted:Qty: 1 on 12/30/2023 by Digna Junior MD at [facility] Plate N/A: Sternum [employer] 115.103.04 / / [employer] Plate Bone Low Profile 6 Hole O Concave Sternum Ti 115.604.06 - [id number] Implanted:Qty: 1 on 12/30/2023 by Digna Junior MD at [facility] Plate N/A: Sternum [employer] 115.604.06 / / [employer] Screw Bone Slf Drl Full Thread Locking 3.5x18mm Ti 100.035.18 - [id number] Implanted:Qty: 16 on 12/30/2023 by Digna Junior MD at [facility] Screw N/A: Sternum [employer] 100.035.18 / / [employer] Device Closure Vascade Od5 Fr Femoral Artery [id number] - [id number] Implanted:Qty: 1 on 12/11/2023 by Johnathan Bullock MD at 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
--- OUTSIDE RECORDS SUMMARY | 2024-07-07 02:27 | XMS_ITS | CONTINUITY OF CARE DOCUMENT ---
Author Name demarcoerrollydia Address Unknown Organization [facility] Address [address] [place] [address] Phone [phone] Care Team Providers Care Coater Helper Name Role Phone Ruth Magallon MD Unavailable MICHI KURTZ MD Unavailable [phone] MICHI KURTZ MD Unavailable [phone] INSURANCE PROVIDERS Payer name Policy type / Coverage type [place] [employer] party ID [facility] FAMILY [facility] Medicaid 3 [id number] [facility] MEDICARE COMPLETE HMO Other [id number]
--- OUTSIDE RECORDS SUMMARY | 2024-07-07 02:28 | XMS_ITS | Clinical Summary ---
Author Organization [facility] [employer] Address [address] [place] [address] Care Team Providers Care Windshield Technician Name Role Phone Bentley Caruso MD Primary Care Provider [phone] Source Comments [facility] [employer],non-owned Affiliates and Associated Physician Practices is amultiple site organization consisting of ambulatory clinics and hospital sitesin [place], [place], [place] and [place]. This disclosure is being madepursuant to the Care Everywhere program and may not contain all information available regarding this patient. Last updated 17.[facility] [employer] Allergies No known active allergies Medications * [...] 05/12/2024 Refill [facility] [address] [place] [phone] Natanael Guerrier MD Refill Request from Last [...] 36.8 C (98.3 F) 06/01/2019 2:04 PM MANAGER OF HOUSEKEEPING Respiratory Rate 16 03/09/2019 1:37 PM MANAGER OF HOUSEKEEPING Oxygen Saturation 98% 10/07/2019 11:13 AM CDT Inhaled Oxygen Concentration - - Weight 88.5 kg (195 lb) 10/06/2019 12:48 PM CDT Height 172.7 cm (5' 8 ) 06/01/2019 2:04 PM MANAGER OF HOUSEKEEPING Body Mass Index 29.65 06/01/2019 2:04 PM MANAGER OF HOUSEKEEPING Plan of Treatment Health Maintenance Due Date [...] Patient-Stated? Author Mobility General Worsening(07/2019 2:04 PM MANAGER OF HOUSEKEEPING) Yes Shara Nunn, RN Note: Expected end date:04/08/2019 The goal is to maintain or improve your mobility at the optimum level for you. Interventions: Medical Devices Implanted Type Area Batt Packer Device Identifier Shelf Expiration Date Model / Serial / Lot Kit Ar[employer] Fx Internalbrace Fibertape Implanted:Qty: 1 on 12/25/2018 by Natanael Guerrier MD at [facility] Left: Elbow [employer] 09/05/2020 [id number] / / [id number] Procedures Procedure Name Priority Date/Time Associated Diagnosis Comments COMPREHENSIVE METABOLIC PANEL Routine 12/09/2018 3:46 PM CDT Rupture of left triceps tendon, initial encounter from Last 3 Months or Most Recently Relevant to Health Maintenance Results * (ABNORMAL) COMPREHENSIVE METABOLIC PANEL (12/09/2018 3:46 PM CDT) BUN 31(H) 7 - 26 mg/dL 12/09/2018 5:06 PM [facility] Creatinine 1.1 0.6 - 1.2 mg/dL 12/09/2018 5:06 PM [facility] Sodium 140 136 - 145 mmol/L 12/09/2018 5:06 PM [facility] Potassium 3.8 3.5 - 4.5 mmol/L 12/09/2018 5:06 PM [facility] Chloride 105 98 - 107 mmol/L 12/09/2018 5:06 PM [facility] CO2 25 22 - 29 mmol/L 12/09/2018 5:06 PM [facility] Glucose 82 70 - 115 mg/dL 12/09/2018 5:06 PM [facility] Calcium 9.5 8.4 - 10.2 mg/dL 12/09/2018 5:06 PM [facility] Protein Total 6.8 6.0 - 8.3 g/dL 12/09/2018 5:06 PM [facility] Albumin 3.7 3.4 - 5.0 g/dL 12/09/2018 5:06 PM [facility] Bilirubin Total 0.4 0.2 - 1.2 mg/dL 12/09/2018 5:06 PM [facility] Alkaline Phosphatase 134 40 - 150 Units/L 12/09/2018 5:06 PM [facility] ALT 24 0 - 55 Units/L 12/09/2018 5:06 PM [facility] AST 16 5 - 34 Units/L 12/09/2018 5:06 PM CDT [facility] Anion Gap 14 8 - 18 12/09/2018 5:06 PM T [facility] BUN/Creatinine Ratio 28(H) 7 - 23 12/09/2018 5:06 PM CDT [facility] Osmolality Calculated 296 270 - 300 mOsm/kg 12/09/2018 5:06 PM CDT [facility] Albumin/Globulin Ratio 1.2 1.1 - 2.3 12/09/2018 5:06 PM T [facility] eGFR >60 >60 mL/min/1.7 3 m2 12/09/2018 5:06 PM T [facility] Blood BLOOD SPECIMEN / Unknown Lab Venipuncture / Unknown 12/09/2018 3:46 PM CDT 12/09/2018 4:34 PM CDT Natanael Guerrier MD LAB - CHEMISTRY [facility] Organization Address [facility] Co de Phone Number [facility] [address] [phone] from Last 3 Months or Most Recently Relevant to Health Maintenance Care Teams Windshield Technician Relationship Specialty Start Date End Date Bentley Caruso MD PCP - General Family Medicine 08/05/19 Guido Jeffries [address] [facility] [address] [place] [address] Junior Engineer Pulmonary Disease 12/18/18
--- OUTSIDE RECORDS SUMMARY | 2024-07-07 02:28 | XMS_ITS | Clinical Summary ---
Author Organization [facility] Address [address] [place] [address] Care Team Providers Care Aircraft Stress Analyst Name Role Phone Jose Post MD Primary Care Provider [phone] Social History Tobacco Use Types Packs/Day Years [...] this topic Insurance MEDICAID [place] Care Teams Aircraft Stress Analyst Relationship Specialty [place] [address] [place] [id number] PCP - General Internal Medicine 07/17/22
[2024-07-07] MEDS: HYDROmorphone HCL INJ (*CRX) 1 MG/ML SYR IV PUSH (02:30)
[2024-07-07] MEDS: ONDANSETRON INJ 4 MG/2 ML VIAL IV PUSH (02:30)
[2024-07-07] MEDS: LACTATED RINGERS 1,000 ML 999 ML IV CONT (02:30)
[2024-07-07 04:02] VITALS: BP 130/76; PULSE 78; RESP 16; O2SAT 100
[2024-07-07 04:11] LABS: Add Urine Microscopic? NO; Appearance Urine Clear (Clear); Bilirubin Urine Negative (Negative); Blood Urine Negative (Negative); Color Urine Yellow (Yellow); Glucose Urine UA Negative (Negative); Ketones Urine Negative (Negative); Leukocyte Esterase Ur Negative LEU/UL (Negative); Nitrate Urine Negative (Negative); Protein Urine Negative (Negative); Specific Grav Ur > 1.045 (1.001-1.035); Urobilinogen Urine 0.2 mg/dL (<2.0)
[2024-07-07] MEDS: KETOROLAC 15 MG/ML VIAL (*BKC) IV PUSH (06:29)
[2024-07-07] MEDS: TAMSULOSIN HCL 0.4 MG CAPSULE PO (06:30)
[2024-07-07 06:55] VITALS: BP 124/78; PULSE 75; RESP 16; O2SAT 99
== END 2024-07-07 06:56 | disposition home or self-care (01) ==
PROVIDERS: Emergency Provider Student in an Organized Health Care Education/Training Program; PCP Internal Medicine Gastroenterology
DX: N21.0 Calculus in bladder (principal); N20.1 Calculus of ureter; J44.9 Chronic obstructive pulmonary disease, unspecified
CPT/HCPCS: 36415; 74177; 80053; 81003; 83690; 85025; 96361; 96374; 96375; 99284; A9270; J1171; J1885; J2405; J7120; Q9967

== ENCOUNTER 2024-12-24 16:25 | Outpatient (CLI) | payer MEDICARE, MEDICAID, SELFPAY ==
--- NOTE | ~2024-12-24 | XR_ITS ---
EXAMINATION: XR chest 2V, 12/24/2024 16:42 CDT HISTORY: pleural effusion, left, not elsewhere classified, COMPARISON: No comparisons available. Technique: 2 views obtained. Findings: Trace left pleural effusion. COPD changes noted. No pneumothorax. Heart is normal size. Mediastinal and hilar contours are within normal limits. Poststernotomy. Impression: No acute cardiopulmonary abnormality. Reviewed, dictated and finalized at location A. Impression: No acute cardiopulmonary abnormality.
--- OUTSIDE RECORDS SUMMARY | 2024-12-24 15:15 | XMS_ITS | Encounter Summary ---
Author Organization [facility] Healthcare Address [address] [place] [address] Care Team Providers Care Optical Laboratory Manager Name Role Phone Jose Post MD Primary Care Provider Digna Junior MD Unavailable [phone] Rajiv Melchor MD Unavailable Miscellaneous, Not In File Unavailable Unava ilable Reason for Visit * Reason Comments Atrial Fibrillation Coronary Artery Disease PHTN Palpitations 4 mo f/u Encounter Details Date Type Department Care Team (Late st Contact Info) Description 12/24/2024 3:15 PM CDT Office Visit [facility] Medical Group Cardiology [address] 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 No 01/24/2024 Social Connection and Isolation Panel Answer Date Recorded In a typical week, how many times do you talk on the phone with family, friends, or neighbors? Three times a week 01/24/2024 How often do you get togethe r with friends or relatives? Three times a week 01/24/2024 How often do you attend chur ch or sabianism services? Never 01/24/2024 Do you belong to any clubs o r organizations such as anabaptist groups, unions, fraternal or athletic groups, or [...] any time in the past 12 m [facility], were you homeless or living in a correction (including now)? No 01/24/2024 Personal Safety Answer Date Recorded Have you ever been in or are you currently in a harmful physical or emotional relationship or is someone making you feel afraid or unsafe? Denies 01/23/2024 Sex and Gender Information Value Date Recorded Sex Assigned at Not on file Legal Sex Male 7:50 PM [employer] Gender Identity Male 02/02/2021 11:29 PM CDT Sexual Orientation Straight 02/02/2021 11 :29 PM CDT documented as of this encounter Last Filed Vital Signs Vital Sign Reading Time Taken Comments Blood Pressure 112/66 12/24/2024 3:57 PM CDT Pulse 89 12/24/2024 3:57 PM CDT Temperature - - Respiratory Rate - - Oxygen Saturation 96% 12/24/2024 3:57 PM CDT Inhaled Oxygen Concentration - - Weight 101.6 kg (224 lb) 12/24/2024 3:57 PM CDT Height 180.3 cm (5' 11) 12/24/2024 3:57 PM CDT Body Mass Index 31.24 12/24/2024 3:57 PM CDT documented in this encounter Ordered Prescriptions Prescription Sig Dispense Quantity Refills Last Filled Start Date End Date nitroglycerin (NITROSTAT) 0.[address] 1 tablet (0.4 mg total) under the tongue every 5 (five) minutes as needed for chest pain May repeat dose q 5 min, up to 3 doses total 25 tablet 11 12/24/2024 isosorbide mononitrate ER (IMDUR) 30 mg 24 hr tablet Take 1 tablet (30 mg total) by mouth daily 90 tablet 3 12/24/2024 metoprolol tartrate (LOPRESSOR) 50 mg immediate release tablet Take 1 tablet (50 mg total) by mouth 2 (two) times a day 180 tablet 3 12/24/2024 clopidogreL (PLAVIX) 75 mg tabletIndications: Myocardial Reinfarction Prevention Take 1 tablet (75 mg total) by mouth daily 90 tablet 3 12/24/2024 aspirin 81 mg enteric coated tabletIndications: Myocardial Reinfarction Prevention Take 1 tablet (81 mg total) by mouth daily 90 tablet 3 12/24/2024 documented in this encounter Progress Notes * Rajiv Melchor MD - 12/24/2024 3:15 PM CDT Images from the original note were not included. [facility] Medical Group-Cardiology DATE OF VISIT: 12/24/2024 CHIEF COMPLAINT Chief Complaint Patient presents with Atrial Fibrillation Coronary Artery Disease PHTN Palpitations 4 mo f/u HPI Quintin Thacker is a 69 y.o. male with a PMHx of COPD, spinal stenosis, nephrolithiasis and tobacco use. He presented to [facility] on 12/04/2020 with complaint of progressively worsening shortness of breath, fever, abdominal pain and loose stool. On presentation he was tachycardic and hyponatremic Na 118. Chest x-ray showed RUL infiltrate. Treatment for pneumonia and sepsis was begun. Shortly after admission he went into atrial fibrillation. Dr. Guevara and Jaki Portillo NP saw him in consultation. Heart rate improved with metoprolol tartrate 100 mg b.i.d.. He had a right bundle branchblock. He was given aspirin 325 mg daily instead of anticoagulation because he was confused and considered a high fall risk at the time. His echocardiogram showed EF greater than 70%, no significant valvular pathology and a small pericardial effusion with no evidence of tamponade. His sodium improved to 130. His mentation improved. He was discharged on 12/09/2020. 02/02/2021 Hospital follow-up with MERYL - Quintin Car Kedar comes to the office today for a hospital follow up visit. In retrospect he states he remembers getting into the ambulance to bring him to the hospital and then he does not remember anything for the next 4 days. He now reports feeling better. However since hospital discharge he has noticed episodes tightness across his chest and a sensation of ???running out of gas?? when he exerts himself. He will notice it when lifting/carrying something or mowing the grass. Sometimes he can do up to 30 minutes of activity before he has to stop and rest, other times it is more brief. His chest tightness does resolve with a few minutes of rest but then he can not exert for as long the next time he tries. He ran out of metoprolol 4 days ago and since then has had some sensations of rapid heartbeat at rest, may last up to 10-15 minutes. He does notfeel palpitations when he gets the chest tightness. He states he had a stress test performed last year (at [facility]) before he went for an arm surgery and was told it was unremarkable. His dewaterer operator Tati Thomson sent him to [facility] last weekend for chest x-ray, ECG and echo. 02/20/21 no palps since starting Xarelto and feels better. No CP, breathing is fine triggered by cold air/weather. Chantal Metoprolol 100mg BID. Not very active currently, uses cane. He does not get CP its irregular heart beat and thumping he states but this has also not occurred. Had stress test 02/13/21 artifact but infarct or ischemia. No bleeding or falls. Seeing Pulm. He reiterates he feels so much better on Xarelto and would like to continue 07/17/21 He has lung cancer as he reports. Notes if he is active one day has a lot of trouble breathing the next day. No recurrent CP, gained weight watches his calories less active but thinks it is out of proportion. Admits he felt fantastic on longstanding prednisone but once he stopped felt much worse a lot of pain. Uses milkweed for pain sometimes which really helps him. 01/22/22 Feeling fairly well and tolerating Rosuvastatin very well thus far. He has changed his diet losing weight. Uses cane. No CP wears O2 at night. No palpitations as he had at one point. Eating a lot greens, vegetables gave up fried foods. Notes past several weeks intermittent nighttime only yamileth horses at night, takes statin in am not consistent has tried to hydrate, takes vitamins pickle juice helps. Sxs resolve gets up and walks around. Not occurring during the day. 08/03/22 has noted intermittent chest aching not painful longest 2 hours, random not with activity can be sitting or more often lying, has kept him up at night on occasion. No changed, no falls or illnesses more coughing, no med changes. No change in SOB. He is not sure why has CP and never had it like this before. No palps. Has passed 3 kidney stones past few weeks, last CP was 3 nights ago. CP he can localize with a couple of fingers right in center of chest, no radiation no aggravating or relieving factors. Later admitted lying back hurts more better lying on R side. 10/05/22 feeling better overall, no more CP at all faded away about a week after last visit, breathing unchanged. No flalls or dizziness, no bleeding, no palps. Cutting back on hamburgers. 04/29/23 He still is trying to lose weight, eating less, working more doing more. No recurrent CP since last visit. Chantal Rosuvastatin and is taking. Follows a good diet, avoiding greasy foods, trying to move more so he is not sure why his weight up. 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 Has cut out dairy but eating a lot of rice he states. He feels really good though. No longer having ALVAREZ's Follow-up note 10/31/2023: He is here today to establish care. Former patient of Dr. Guevraa's. He has been having some ongoing chest pain. Chest pain started about 2-3 months ago. Did have an echocardiogram at [place] which showed normal ejection fraction with aortic calcification but no other abnormalities. He states that his chest pain is usually worse whenever he lays down and better wheneverhe sits up. It is not necessarily exertional. It will last for hours at a time. He does have some baseline shortness of breath but his shortness breath is not worsened with chest pain. He denies any syncope, presyncope, paroxysmal nocturnal dyspnea, orthopnea. No palpitations or bleeding problems Follow-up note 08/18/2024: Since last visit he had a coronary artery CT scan which was abnormal which led to a cardiac catheterization and eventual CABG last fall. He did complete cardiac rehab. He did have cellulitis in his leg which has since healed. He currently denies any chest pain, syncope, presyncope, paroxysmal nocturnal dyspnea, orthopnea, edema. Does have shortness of breath which is not new since surgery. Follow-up note 12/24/2024: He returns today with some chest pain and shortness breath. He has not been taking hardly any medications including his metoprolol, aspirin, clopidogrel. Chest pain coming and going and occur with or without activity. Did have some swelling but swelling is better. No syncope, presyncope, paroxysmal nocturnal dyspnea, orthopnea MEDICAL HISTORY Past Medical History: Diagnosis Date Angina pectoris, unspecified 08/07/2023 Atrial fibrillation (HCC) 12/04/2020 CAD (coronary artery disease) Chronic back pain broken back several years ago, deals with the pain, surgery would immobilize him COPD (chronic obstructive pulmonary disease) Emphysema lung GERD (gastroesophageal reflux disease) [place] (hard of hearing) Hyperlipidemia Hypertension Lung tumor Nephrolithiasis Oxygen desaturation 3L PRN and at night Right bundle branch block Shoulder pain left, severed rotator cuff Spinal stenosis Social History Tobacco Use Smoking status: Some Days Current packs/day: 0.00 Types: Cigarettes Start date: 1966 Last attempt to quit: 02/02/2019 Years since quittin.8 Smokeless tobacco: Never Tobacco comments: Quit in 2019, but daughter gave him a pack this week and he smoked it to help his anxiety, has one left and will stop again after he smokes it Substance and Sexual Activity Drug use: Not Currently Types: Tobacco Sexual activity: Defer Alcohol Use: Not At Risk (01/24/2024) AUDIT-C Frequency of Alcohol Consumption: Never Average Number of Drinks: Patient does not drink Frequency of Binge Drinking: Never Family History Problem Relation Age of Onset Heart attack Father MEDICATIONS Medication List Accurate as of December 24, 2024 3:59 PM. If you have any questions, ask your nurse or doctor. CONTINUE taking these medications acetaminophen 500 mg capsule Take 2 capsules (1,000 mg total) by mouth every 6 (six) hours as needed for pain or headaches albuterol 4 mg tablet Commonly known as: PROVENTIL,VENTOLIN aspirin 81 mg enteric coated tablet Take 1 tablet (81 mg total) by mouth daily baclofen 10 mg tablet Commonly known as: LIORESAL Breyna 160-4.5 mcg/actuation inhaler Generic drug: budesonide-formoteroL clopidogreL 75 mg tablet Commonly known as: PLAVIX TAKE 1 TABLET(75 MG) BY MOUTH DAILY fluticasone propionate 50 mcg/actuation nasal spray Commonly known as: FLONASE furosemide 40 mg tablet Commonly known as: LASIX Take 1 tablet (40 mg total) by mouth daily gabapentin 300 mg capsule Commonly known as: NEURONTIN HYDROcodone-acetaminophen 10-325 mg per tablet Commonly known as: NORCO ipratropium-albuteroL 0.5-2.5 mg/3 mL nebulizer solution Commonly known as: DUO-NEB meloxicam 15 mg tablet Commonly known as: MOBIC metoprolol tartrate 25 mg immediate release tablet Commonly known as: LOPRESSOR montelukast 10 mg tablet Commonly known as: SINGULAIR TAKE 1 TABLET(10 MG) BY MOUTH EVERY NIGHT naproxen 220 mg tablet Commonly known as: ALEVE oxygen rosuvastatin 20 mg tablet Commonly known as: CRESTOR Take 1 tablet (20 mg total) by mouth daily tamsulosin 0.4 mg extended release capsule Commonly known as: FLOMAX theophylline 300 mg 12 hr tablet Commonly known as: THEODUR ALLERGIES No Known Allergies REVIEW OF SYSTEMS Review of Systems Constitutional: Negative for weight gain and weight loss. HENT: Negative for hearing loss. Eyes: Negative for blurred vision and visual disturbance. Cardiovascular: Positive for chest pain. Negative for claudication, dyspnea on exertion, irregular heartbeat, leg swelling, near-syncope, orthopnea, palpitations, paroxysmal nocturnal dyspnea and syncope. Respiratory: Positive for shortness of breath. Negative for cough, hemoptysis, snoring, sputum production and wheezing. Endocrine: Negative for cold intolerance, heat intolerance and polyuria. Hematologic/Lymphatic: Does not bruise/bleed easily. Skin: Negative for color change and rash. Musculoskeletal: Negative for falls, joint pain, joint swelling and myalgias. Gastrointestinal: Negative for abdominal pain, heartburn, nausea and vomiting. Genitourinary: Negative for dysuria. Neurological: Negative for dizziness, focal weakness, headaches, light- headedness, numbness and weakness. Psychiatric/Behavioral: Negative for depression. The patient is not nervous/anxious. Allergic/Immunologic: Negative for environmental allergies. All other systems reviewed and are negative. PHYSICAL EXAM Blood pressure 112/66, pulse 89, height 180.3 cm (5' 11), weight 101.6 kg (224 lb), SpO2 96%. Body mass index is 31.24 kg/m??. Physical Exam Vitals reviewed. Constitutional: Appearance: Normal appearance. HENT: Head: Normocephalic and atraumatic. Nose: Nose normal. Eyes: General: No scleral icterus. Conjunctiva/sclera: Conjunctivae normal. Cardiovascular: Rate and Rhythm: Normal rate and regular rhythm. Pulses: Intact distal pulses. Heart sounds: Normal heart sounds. No murmur heard. No friction rub. No gallop. Pulmonary: Effort: Pulmonary effort is normal. No respiratory distress. Breath sounds: Wheezing present. No rales. Chest: Chest wall: No tenderness. Abdominal: General: Bowel sounds are normal. There is no distension. Palpations: Abdomen is soft. Tenderness: There is no abdominal tenderness. Musculoskeletal: General: Normal range of motion. Cervical back: Neck supple. Skin: General: Skin is warm and dry. Neurological: Mental Status: He is alert and oriented to person, place, and time. Psychiatric: Mood and Affect: Mood normal. LABS AND OTHER DIAGNOSTIC TESTS Lab Results Component Value Date WBC 10.0 (H) 01/27/2024 HGB 7.7 (L) 01/27/2024 HCT 24.3 (L) 01/27/2024 MCV 97.2 (H) 01/27/2024 Chemistry Component Value Date/Time SODIUM 135 01/27/2024 0852 POTASSIUM 3.8 01/27/2024 0852 CHLORIDE 96 (L) 01/27/2024 0852 CO2 29 01/27/2024 0852 BUNSER 25 01/27/2024 0852 CREATININE 1.10 01/27/2024 0852 GLUCOSE 77 01/27/2024 0852 Component Value Date/Time CALCIUM 9.2 01/27/2024 0852 ALKPHOS 189 (H) 01/27/2024 0852 AST 29 01/27/2024 0852 ALT 37 01/27/2024 0852 BILITOT 0.3 01/27/2024 0852 Lab Results Component Value Date CHOL 34 01/10/2024 Lab Results Component Value Date HDL 12 (L) 01/10/2024 No results found for: LDL] Lab Results Component Value Date LDLCALC 8 01/10/2024 Lab Results Component Value Date TRIG 47 01/10/2024 Lab Results Component Value Date CHOLHDL 3 01/10/2024 Echo 08/14/2023: EF 55%. Mild LVH. Calcified aortic valve. Possibly bicuspid 02/13/21 Lexiscan: Patient did experience 5/10 chest tightness with Lexiscan which resolved at 4 minutes in recovery. Negative EKG portion of stress test. There is no ischemia. There is a partially reversible defect that resolves with prone imaging, consistent with attenuation artifact. Global left ventricular function is normal. Left ventricular ejection fraction is 68 %. ECHO 12/16/2023 Normal left ventricular systolic function. No focal wall motion abnormalities. Normal left ventricular size. Mild concentric left ventricular hypertrophy. There is pseudonormal diastolic dysfunction Grade II. Ejection fraction is measured at 62 %. Global Longitudinal Strain is -17 %. GLS is abnormal. Apical sparing apttern. Trivial regurgitation of the mitral valve. No evidence of hemodynamically significant aortic stenosis by Doppler. Aortic cusps appear mildly calcified. Trileaflet aortic valve. Mild aortic valve regurgitation. CATH 2023 Left main is large and divides into large LAD and large left circumflex artery. Left main does not have significant disease. Left anterior descending artery is a large artery that runs a wraps around the apex. In the mid segment focal stenosis 70% and distally 80%. It gives rise to a medium-size diagonal branch that has mid 60%. Left circumflex artery is large and appears to be codominant. There is disease extending from the mid segment into a large OM 1 branch. The disease in the mid left circumflex artery and OM constitutea long segment and has significant calcification. Right coronary artery is large and has 90% proximally, 80% at the junction of the mid to distal segment and distally 90%. CABG x4 by Dr. Junior on December 30, 2023 with [place] to LAD, radial artery sequential to diagonal OM and SVG to PDA and left atrial appendage ligation. 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 He is not interested in aggressive workup and actually refuses stress testing. We will restart metoprolol tartrate 50 mg p.o. b.i.d.. Prescription for aspirin 81 mg p.o. daily, clopidogrel 75 mg p.o. daily, isosorbide mononitrate 30 mg daily will be added to his regimen becauseof his chest pain and known CAD Prn nitroglycerin also as prescribed at 0.4 mg sublingually p.r.n. chest pain. He is instructed that he should not take Viagra or anything similar due to the nitroglycerin. Encouraged medication compliance and if his symptoms persist or worsen that he should call 911. Follow-up in 3 weeks or sooner as clinically indicated Rajiv Melchor MD, [facility] documented in this encounter Plan of Treatment Not on file documented as of this encounter Visit Diagnoses Diagnosis Paroxysmal atrial fibrillation (HCC)- Primary Atrial fibrillation Coronary artery disease of houl[place] artery of [place]oulton heart with stable angina pectoris Mixed dyslipidemia Primary hypertension Unspecified essential hypertension documented in this encounter Discontinued Medications Medication Sig Discontinue Reason Start Date End Da te aspirin 81 mg enteric coated tabletIndications:Myocard ial Reinfarction Prevention Take 1 tablet (81 mg total) by mouth daily Reorder 12/11/2023 12/24/2024 clopidogreL (PLAVIX) 75 mg tabletIndications:Myocard ial Reinfarction Prevention TAKE 1 TABLET(75 MG) BY MOUTH DAILY Reorder 01/05/2024 12/24/2024 metoprolol tartrate (LOPRESSOR) 25 mg immediate release tablet Take 1 tablet (25 mg total) by mouth 2 (two) times a day Reorder 02/03/2024 12/24/2024 documented as of this encounter Care Teams Optical Laboratory Manager Relationship Specialty Start Date End Date Jose Post MD [address] [place] [id number] PCP - General Gastroenterology 12/04/20 Digna Junior MD [address] [place] [id number] Surgeon Cardiothoracic Surgery 01/05/24 Rajiv Melchor MD [address] [facility] [address] [place] [address] Consulting Physician Cardiology 01/05/24 Miscellaneous, Not In File 01/05/24 documented as of this encounter
--- OUTSIDE RECORDS SUMMARY | 2024-12-24 16:34 | XMS_ITS | Clinical Summary ---
Author Organization [facility] Facility Address [address] [place] [id number] Care Team Providers Care Information Clerk Brokerage Name Role Phone Jose Post MD Primary [...] Colorectal Cancer Screening: Sigmoidoscopy 2005 Pneumococcal Vaccine: 50+ Ye ars (1 of 1 - PCV) 2006 Influenza Vaccine (#1) 2024 Hepatitis B Vaccine Aged Out No longe r eligible based on patient's age to complete this topic Insurance Medicaid [place] Care Teams Information Clerk Brokerage Relationship Specialty [place] [address] [place] [id number] PCP - General Internal Medicine 07/17/22
--- OUTSIDE RECORDS SUMMARY | 2024-12-24 16:34 | XMS_ITS | Clinical Summary ---
Author Organization [facility] [employer] Address [address] [place] [address] Care Team Providers Care Core Baker Name Role Phone Bentley Caruso MD Primary Care Provider [phone] Source Comments [facility] [employer],non-owned Affiliates and Associated Physician Practices is amultiple site organization consisting of ambulatory clinics and hospital sitesin [place], [place], [place] and [place]. This disclosure is being madepursuant to the Care Everywhere program and may not contain all information available regarding this patient. Last updated 17.[facility] [employer] Allergies No known active allergies Medications * Be aware that medications may not be up to date on this document. Alwaysverify current medications with the patient. albuterol (PROVENTIL) 4 MG tablet 9 Active baclofen (LIORESAL) 10 MG tablet Take 10 mg by mouth 3 times daily as needed Active HYDROcodone-jade taminophen (NORCO) 10-325 MG tablet Take 1 tablet by mouth every 8 hours as needed Active theophylline CR 12hr (THEODUR) 300 MG tablet Take 300 mg by mouth 2 times daily Active albuterol HFA (PROVENTIL;VENT SHAMIKA;PROAIR) 108 (90 Base) MCG/ACT inhaler 9 Active diclofenac sodium (VOLTAREN) 1 % gel Apply 4 g to affected area 4 times daily 2 gm amount for elbow, wrist or hand 4 gm amount for knee, ankle or foot 100 g 5 0 Active SYMBICORT 80-4.5 MCG/ACT inhaler INL 2 PFS PO BID UTD 0 Active SPIRIVA HANDIHALER 18 MCG inhalation capsule INL THE CONTENTS OF 1 C VIA INHALATION DEVICE QD 0 Active meloxicam (Mobic) 15 MG tablet TAKE 1 TABLET BY MOUTH EVERY DAY 30 tablet 2 2 Active meloxicam (Mobic) 15 MG tablet TAKE 1 TABLET BY MOUTH EVERY DAY 30 tablet 2 3 Active meloxicam (Mobic) 15 MG tablet TAKE 1 TABLET BY MOUTH EVERY DAY 90 tablet 1 5 Active Active Problems Problem Noted Date Diagnosed Date Back pain 12/23/2019 Degenerative spondylolisthesis 05/27/2019 Kidney stone 07/24/2018 Asthma 07/24/2018 Resolved Problems Problem Noted Date Diagnosed Date Resolved Date Elbow injury, left, initial encounter 09/05/2018 07/20/2019 Rupture of left triceps tendon 09/05/2018 06/01/2019 Post-op pain 06/01/2019 Encounters Date Type Department Care Team Description 10/28/2024 Refill [facility] - Orthopedics [address] [place] [phone] Natanael Guerrier MD Refill Request from Last [...] at Not on file Legal Sex Male 7:04 PM KIL[employer] P[employer]HER Gender Identity Not on file Sexual Orientation Not on file Last Filed Vital Signs Vital Sign Reading Time Taken Comments Blood Pressure 134/80 10/07/2019 11:13 AM CDT Pulse 83 10/07/2019 11:13 AM CDT Temperature 36.8 C (98.3 F) 06/01/2019 2:04 PM [facility]HER Respiratory Rate 16 03/09/2019 1:37 PM [facility]IL[facility] P[facility]HER Oxygen Saturation 98% 10/07/2019 11:13 AM CDT Inhaled Oxygen Concentration - - Weight 88.5 kg (195 lb) 10/06/2019 12:48 PM CDT Height 172.7 cm (5' 8) 06/01/2019 2:04 PM [facility] Body Mass Index 29.65 06/01/2019 2:04 PM KILN PUSHER Plan of Treatment Health Maintenance Due Date [...] 2021 SCREENING FOR DIABETES 12/09/2021 9, 12/09/2018 DEPRESSION SCREENING 04/08/2024 COVID-19 VACCINE ( - 2023-2 5 season) 2024 INFLUENZA VACCINE (#1) 2024 HEPATITIS B VACCINE Aged Out No longe [...] Patient-Stated? Author Mobility General Worsening(07/2019 2:04 PM KILN PUSHER) Yes Shara Nunn, RN Note: Expected end date:04/08/2019 The goal is to maintain or improve your mobility at the optimum level for you. Interventions: Medical Devices Implanted Type Area Carburetor Expert Device Identifier Shelf Expiration Date Model / Serial / Lot Kit Arthsc Fx Internalbrace Fibertape Implanted:Qty: 1 on 12/25/2018 by Natanael Guerrier MD at [facility] Left: Elbow [employer] 09/05/2020 [id number] / / [id number] Procedures Procedure Name Priority Date/Time Associated Diagnosis Comments COMPREHENSIVE METABOLIC PANEL Routine 12/09/2018 3:46 PM CDT Rupture of left triceps tendon, initial encounter from Last 3 Months or Most Recently Relevant to Health Maintenance Results * (ABNORMAL) COMPREHENSIVE METABOLIC PANEL (12/09/2018 3:46 PM CDT) BUN 31(H) 7 - 26 mg/dL 12/09/2018 5:06 PM [facility] Creatinine 1.1 0.6 - 1.2 mg/dL 12/09/2018 5:06 PM [facility] Sodium 140 136 - 145 mmol/L 12/09/2018 5:06 PM [facility] Potassium 3.8 3.5 - 4.5 mmol/L 12/09/2018 5:06 PM [facility] Chloride 105 98 - 107 mmol/L 12/09/2018 5:06 PM [facility] CO2 25 22 - 29 mmol/L 12/09/2018 5:06 PM [facility] Glucose 82 70 - 115 mg/dL 12/09/2018 5:06 PM [facility] Calcium 9.5 8.4 - 10.2 mg/dL 12/09/2018 5:06 PM [facility] Protein Total 6.8 6.0 - 8.3 g/dL 12/09/2018 5:06 PM [facility] Albumin 3.7 3.4 - 5.0 g/dL 12/09/2018 5:06 PM [facility] Bilirubin Total 0.4 0.2 - 1.2 mg/dL 12/09/2018 5:06 PM [facility] Alkaline Phosphatase 134 40 - 150 Units/L 12/09/2018 5:06 PM [facility] ALT 24 0 - 55 Units/L 12/09/2018 5:06 PM [facility] AST 16 5 - 34 Units/L 12/09/2018 5:06 PM [facility] Anion Gap 14 8 - 18 12/09/2018 5:06 PM [facility] BUN/Creatinine Ratio 28(H) 7 - 23 12/09/2018 5:06 PM [facility] Osmolality Calculated 296 270 - 300 mOsm/kg 12/09/2018 5:06 PM [facility] Albumin/Globulin Ratio 1.2 1.1 - 2.3 12/09/2018 5:06 PM [facility] eGFR >60 >60 mL/min/1.7 3 m2 12/09/2018 5:06 PM [facility] Blood BLOOD SPECIMEN / Unknown Lab Venipuncture / Unknown 12/09/2018 3:46 PM CDT 12/09/2018 4:34 PM CDT Natanael Guerrier MD LAB - CHEMISTRY ORDERABLES Final Result Performing Organization Address City/State/[facility] Co de Phone Number [facility] [address] [place] [address] from Last 3 Months or Most Recently Relevant to Health Maintenance Insurance [facility] Care Teams Core Baker Relationship Specialty Start Date End Date Bentley Caruso MD PCP - General Family Medicine 08/05/19 Guido Jeffries [address] [place] [address]. [address] [place] [address] Computer Operator Pulmonary Disease 12/18/18
== END 2024-12-24 16:26 | disposition home or self-care (01) ==
PROVIDERS: PCP Internal Medicine Gastroenterology
DX: J90 Pleural effusion, not elsewhere classified (principal)
CPT/HCPCS: 71046